=== PATIENT | male | born 1940 | race Caucasian/White ===

== ENCOUNTER 2017-04-14 08:34 | Day surgery (SDC) | payer MEDICARE, BC ==
[2017-04-13 13:33] VITALS: BMI 31.0
[~2017-04-14 08:34] MED LIST: ALPRAZolam 0.25 MG TAB PO PRN; ASPIRIN 325 MG TAB PO STA; SODIUM CHLORIDE 0.9% 1,000 ML in EMPTY BAG 1 BAG IV ONE
[2017-04-14] MEDS ORDERED: SODIUM CHLORIDE 0.9% 1,000 ML IV SCH ×2 (09:00→11:15)
[2017-04-14] MEDS ORDERED: SODIUM CHLORIDE 0.9% 1,000 ML IV ONE (09:12)
[2017-04-14 09:14] VITALS: RESP 18
[2017-04-14 09:15] LABS: Glucose,Whole Blood 222 mg/dL (75-99)
[2017-04-14 10:21] LABS: Calcium 9.7 mg/dL (8.4-10.2); Potassium 5.2 mmol/L (3.5-5.1)
[2017-04-14] MEDS ORDERED: LIDOCAINE 2% INJ 20 MG/ML SQ ONE ×2 (10:46→10:51)
[2017-04-14] MEDS ORDERED: MIDAZOLAM 2 MG/2 ML VIAL IVP ONE (10:46)
[2017-04-14] MEDS ORDERED: IODIXANOL 320 MG/ML 100 ML INTRAARTER ONE (11:03)
--- NOTE | 2017-04-14 11:50 | AN ---
ANGIOGRAPHY REPORT DATE OF PROCEDURE: 04/14/2017 PERFORMING PHYSICIAN: Ruddy Shultz MD, Finger Cobbler. PROCEDURE PERFORMED: 1. An abdominal aortogram. 2. Bilateral lower extremities runoff. INDICATION: This is a pleasant 76-year-old gentleman who is known to have peripheral arterial disease, who sees Dr. Shamir Barajas as an outpatient, who was experiencing bilateral lower extremities intermittent claudication, worse on the right side, underwent an anterior duplex study and that came in to be abnormal. In view of that, an abdominal aortogram and bilateral lower extremity runoff was advised. APPROACH: Right common femoral artery. COMPLICATION: None. LEVEL OF SEDATION: Moderate with sedation length of 20 minutes. PROCEDURE DESCRIPTION: After obtaining an informed consent, the patient was brought to Cardiac Chief Of Police. The right common femoral artery was cannulated using micropuncture technique and a micropuncture wire passed easily. Then I placed a 5-Russian sheath in the right common femoral artery. After that, I did an abdominal aortogram and bilateral lower extremities runoff using 5-Russian pigtail catheter which was initially placed at the level of the renal arteries, then it was pulled into above the bifurcation of the aorta to right and left common iliac arteries. The procedure was completed without any complication. SELECTIVE PERIPHERAL ANGIOGRAM: 1. The abdominal aorta is angiographically normal. 2. COMMON ILIAC ARTERIES: The right and left common iliac arteries are angiographically normal. 3. EXTERNAL ILIAC ARTERIES: Both external iliac arteries appear to have intermediate disease in the range of 60% to 70%. 4. COMMON FEMORAL ARTERIES: The right and left common femoral arteries are angiographically normal. 5. PROFUNDA: The right and left profunda are patent. 6. SFA: The right and left SFA are both severely diseased up to about 80% to 90% in the midportion with heavily calcified plaque. 7. POPLITEAL: The right and left popliteal appeared to have intermediate disease only. 8. BELOW THE KNEE: There is only one vessel runoff below the knee on the right side with anterior tibial. CONCLUSION: 1. 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 2. Severe bilateral SFA disease. POSTPROCEDURE MANAGEMENT: 1. Gradient measurement across bilateral external iliac arteries. 2. Atherectomy and FLEET TECHNICIAN of bilateral SFA. MMODL / IJN: [id number] /
[2017-04-14 12:08] VITALS: TEMP 97.6
[2017-04-14 12:09] LABS: Glucose,Whole Blood 179 mg/dL (75-99)
[2017-04-14] MEDS ORDERED: INSULIN ASPART 100 UNIT/ML 1 ML 10 ML VIAL SQ SCH (12:30)
[2017-04-14] MEDS ORDERED: hydrALAZINE HCL 20 MG/ML 1 ML VIAL IVP STA (17:08)
[2017-04-14 17:48] VITALS: BP 162/72; PULSE 66
--- NOTE | 2017-04-15 14:23 | IR ---
Fluoroscopy HISTORY: Pain 1.7 minutes fluoroscopy time supplied to the referring clinician. 99 intraoperative C-arm images doc ument the procedure. See dictated report from cardiology.
== END 2017-04-14 18:01 | disposition home or self-care (01) ==
LOC: CATHCVL 08:34
PROVIDERS: ATTEND Internal Medicine Interventional Cardiology
DX: I70.213 Atherosclerosis of native arteries of extremities with intermittent claudication, bilateral legs (principal); Z87.891 Personal history of nicotine dependence; I25.10 Atherosclerotic heart disease of native coronary artery without angina pectoris; I10 Essential (primary) hypertension; Z95.1 Presence of aortocoronary bypass graft; E11.9 Type 2 diabetes mellitus without complications; Z79.4 Long term (current) use of insulin; E78.5 Hyperlipidemia, unspecified; Z79.82 Long term (current) use of aspirin; Z79.899 Other long term (current) drug therapy
CPT/HCPCS: 36200; 75625; 75716; 80048; C1894; C1769 ×4; J2001; J2250; J0360; Q9967

== ENCOUNTER 2017-05-09 07:28 | Day surgery (SDC) | payer MEDICARE, BC ==
[~2017-05-09 07:28] MED LIST changes: +ALPRAZolam 0.5 MG TAB PO PRN
[2017-05-09 08:28] LABS: Glucose,Whole Blood 183 mg/dL (75-99)
[2017-05-09 08:42] LABS: Basophils # (A) 0.1 k/uL (0-0.2); Basophils % (A) 1 %; Eosinophils # (A) 0.5 k/uL (0-0.7); Eosinophils % (A) 6 %; HCT 43.4 % (39.0-53.0); HGB 15.1 gm/dL (13.0-17.5); Lymphocytes # (A) 1.2 k/uL (1.0-4.8); Lymphocytes % (A) 16 %; MCH 29.8 pg (25.0-35.0); MCHC 34.9 g/dL (31.0-37.0); MCV 85.4 fL (80.0-100.0); Mean Platelet Volume 7.1; Monocytes # (A) 0.3 k/uL (0-1.0); Monocytes % (A) 4 %; Neutrophils # (A) 5.4 k/uL (1.3-7.7); Neutrophils % (A) 71 %; Platelet Count 199 k/uL (150-450); RBC 5.08 m/uL (4.30-5.90); RDW 14.4 % (11.5-15.5); WBC 7.6 k/uL (3.8-10.6)
[2017-05-09] MEDS ORDERED: MIDAZOLAM 2 MG/2 ML VIAL IV ONE (08:43)
[2017-05-09 08:48] LABS: Calcium 9.6 mg/dL (8.4-10.2); Potassium 5.1 mmol/L (3.5-5.1)
[2017-05-09] MEDS ORDERED: LIDOCAINE 2% INJ 20 MG/ML SQ ONE (08:51)
[2017-05-09] MEDS ORDERED: HEPARIN SODIUM 1,000 UN/ML (10ML VL) IV ONE (09:05)
[2017-05-09] MEDS ORDERED: SODIUM CHLORIDE 0.9% (PF) 10 ML VIAL ONE (09:20)
[2017-05-09] MEDS ORDERED: niCARdipine 25 MG/10 ML VIAL ONE (09:20)
[2017-05-09] MEDS ORDERED: CLOPIDOGREL 75 MG TAB PO ONE (09:30)
[2017-05-09] MEDS ORDERED: INSULIN LISPRO 100 UNIT SQ PRN (10:18)
[2017-05-09] MEDS ORDERED: SODIUM CHLORIDE 0.9% 1,000 ML IV SCH (10:30)
--- NOTE | 2017-05-09 11:37 | LTR ---
May 09, 2017 Re: Praneeth Gandhidick Dear Dr. Domínguez: Mr. Praneeth Downing underwent successful balloon angioplasty of the left SFA and left iliac artery with good angiographic results and without any complication. I want to thank you for allowing me to participate in his care and please do not hesitate to call if you have any question or concern. Sincerely, MD LAVONNE Freedman / JENNIE: [id number] /
[2017-05-09 11:47] VITALS: BMI 31.0
--- NOTE | 2017-05-09 12:49 | AN ---
ANGIOGRAPHY REPORT DATE OF SERVICE: 05/09/2017 PERFORMING PHYSICIAN: Ruddy Suhltz MD, coordinator mining products. PROCEDURE PERFORMED: 1. Selective left [id number] angiogram. 2. Selective left popliteal angiogram. 3. Selective left SFA angiogram. 4. Gradient measurement across the left external iliac artery. 5. Successful atherectomy of the left popliteal and left SFA using the orbital atherectomy device from [employer]. 6. Successful balloon angioplasty of the left popliteal using 5 mm drug coated balloon with good angiographic results. 7. Successful balloon angioplasty of the left SFA using drug coated balloon with good angiographic results. 8. Successful stenting of the left external iliac artery using 7.0 x 37 mm balloon expandable stent with good angiographic results. 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 Because of that, the decision was made towards percutaneous peripheral intervention. APPROACH: Right common femoral artery. COMPLICATION: None. LEVEL OF SEDATION: Moderate with sedation length of 1 hour and 20 minutes. PROCEDURE DESCRIPTION: After obtaining an informed consent, the patient was brought to the cardiac open hearth laborer. The right common femoral artery was cannulated using micropuncture technique, the micropuncture wire passed easily, then I placed a 6-Colombian sheath 11 cm sheath in the right common femoral artery. At that point, anticoagulation was initiated using heparin and the patient received 10,000 units of heparin. We did an ACT by the end of the procedure. Subsequently I did select the left SFA using 0.035 advantage wire with a 5-Colombian rim catheter. After that, I did exchange my 11 cm 6-Colombian sheath into 55 cm 6-Colombian sheath using the Advantage wire. After that I did place the tip of the long sheath, which was 55 cm Raabe sheath at the left common femoral artery. Subsequently I did selective left [id number]-dbjj angiogram, selective left popliteal angiogram, and selective left external iliac artery angiogram. At that point, I did cross the left popliteal and left SFA lesions using 0.035 advantage wire. Then I did exchange my 0.035 advantage wire into a ViperWire preparing for orbital atherectomy. Subsequently I did multiple runs of rotational atherectomy using the orbital CSI atherectomy device and I did atherectomy of the left popliteal as well as left SFA in the midportion. After that, I did balloon angioplasty of the left popliteal and left SFA using an AngioSculpt balloon which was 4 mm balloon. After that for the left popliteal lesion, I did successful balloon angioplasty using 4 mm drug coated balloon. For the left SFA, I did drug coated balloon. It was 5 mm. The following angiogram showed good angiographic results. For the left external iliac artery lesion, I did a gradient measurement across the left external iliac artery using the an 0.035 CXI catheter. Then I did balloon angioplasty using initially 6 mm balloon and then I did place a 7 mm x 37 mm balloon expandable stent where the stent was positioned under fluoroscopy guidance and deployed under its nominal pressure. The following angiogram showed good angiographic results without perforation and without dissection with good flow in the left external iliac artery. Subsequently, I did exchange my 55 cm 6-Colombian sheath into 11 cm 6-Colombian sheath using an 0.035 advantage wire. I did finally selective right common femoral artery angiogram and the procedure was completed without any complication. POSTPROCEDURE MANAGEMENT: 1. Dual anti-platelet therapy. 2. Risk factor modifications. 3. Follow up with the patient. MMODL / IJN: [id number] /
[2017-05-09] MEDS ORDERED: ATROPINE SULFATE 0.1 MG/ML 10ML SYRINGE ONE (14:48)
[2017-05-09] MEDS ORDERED: GABAPENTIN 300 MG CAP PO SCH (20:00)
[2017-05-09] MEDS: METOPROLOL TARTRATE 50 MG TAB PO SCH (20:33)
[2017-05-09 20:48] LABS: Glucose,Whole Blood 220 mg/dL (75-99)
[2017-05-09] MEDS ORDERED: INSULIN DETEMIR 100 UNIT/ML 10 ML VIAL SQ SCH (21:00)
[2017-05-10 06:30] LABS: Glucose,Whole Blood 186 mg/dL (75-99)
[2017-05-10] MEDS ORDERED: INSULIN ASPART 100 UNIT/ML 1 ML 10 ML VIAL SQ SCH (07:30)
[2017-05-10 07:49] VITALS: BP 136/68; PULSE 69; RESP 16; TEMP 97.1
[2017-05-10] MEDS: METOPROLOL TARTRATE 50 MG TAB PO SCH (07:50)
[2017-05-10] MEDS ORDERED: GABAPENTIN 300 MG CAP PO SCH (09:00)
[2017-05-10] MEDS ORDERED: FUROSEMIDE 20 MG TAB PO SCH (09:00)
[2017-05-10] MEDS ORDERED: CLOPIDOGREL 75 MG TAB PO SCH (09:00)
[2017-05-10] MEDS ORDERED: LISINOPRIL 10 MG TAB PO SCH (09:00)
[2017-05-10] MEDS ORDERED: ATORVASTATIN 10 MG TAB PO SCH (09:00)
[2017-05-10] MEDS ORDERED: ASPIRIN 81 MG PO SCH (09:00)
--- NOTE | 2017-05-10 09:56 | IR ---
Fluoroscopy HISTORY: Peripheral vascular occlusive disease 18.9 minutes fluoroscopy time supplied to the referring clinician. 628 intraoperative C-arm images d ocument the procedure. See dictated report from cardiology.
--- NOTE | 2017-05-10 10:53 | DS ---
DISCHARGE SUMMARY ADMISSION DATE: 05/09/2017 DISCHARGE DATE: 05/10/2017 BRIEF HISTORY AND HOSPITAL COURSE: This is a pleasant 76-year-old gentleman who was experiencing bilateral lower extremities intermittent claudication and underwent a peripheral angiogram which revealed severe bilateral SFA disease with severe left external iliac artery disease. He was admitted to the hospital yesterday and underwent successful balloon angioplasty in study atherectomy and balloon angioplasty of the left SFA and successful stenting of the left external iliac artery with good angiographic results and without any complication. The procedure was performed from the right groin which is soft and nontender and without any bruises. The patient is going to be discharged home on dual anti-platelet therapy and I will follow up with the patient in the office as an outpatient. MMLEIDY / BREANNN: [id number] /
== END 2017-05-10 10:52 | disposition home or self-care (01) ==
LOC: CATHCVL 07:28 → 6SEL 10:26 → CATHCVL 05-10 10:52 → 6SEL 05-10 10:55
PROVIDERS: ATTEND Internal Medicine Interventional Cardiology
DX: I70.213 Atherosclerosis of native arteries of extremities with intermittent claudication, bilateral legs (principal); T82.856A Stenosis of peripheral vascular stent, initial encounter; E11.51 Type 2 diabetes mellitus with diabetic peripheral angiopathy without gangrene; Z95.820 Peripheral vascular angioplasty status with implants and grafts; I25.10 Atherosclerotic heart disease of native coronary artery without angina pectoris; Z95.1 Presence of aortocoronary bypass graft; I10 Essential (primary) hypertension; E78.5 Hyperlipidemia, unspecified; Z79.4 Long term (current) use of insulin; Z79.899 Other long term (current) drug therapy; Z87.891 Personal history of nicotine dependence
CPT/HCPCS: 37221; 37225; 80048; 82565; 85025; C1894 ×2; C1714; C1769 ×5; C1725 ×2; C2623 ×2; C1876; J2001; J2250; J1644

== ENCOUNTER → 2017-06-08 | Day surgery (SDC) | payer MEDICARE, BC ==
[2017-06-03 13:55] VITALS: BMI 30.4
[~2017-06-08] MED LIST changes: -ALPRAZolam 0.5 MG TAB PO PRN; +INSULIN ASPART 100 UNIT/ML 1 ML 10 ML VIAL SQ SCH
[2017-06-08 13:34] LABS: Glucose,Whole Blood 232 mg/dL (75-99)
[2017-06-08 13:36] VITALS: BP 125/54; PULSE 80; RESP 16; TEMP 97.7
== END ==
LOC: CATHCVL 12:50
PROVIDERS: ATTEND Internal Medicine Interventional Cardiology
DX: I73.9 Peripheral vascular disease, unspecified (principal); Z53.9 Procedure and treatment not carried out, unspecified reason

== ENCOUNTER 2017-06-15 06:57 | Day surgery (SDC) | payer MEDICARE, BC ==
[2017-06-13 10:14] VITALS: BMI 31.0
[2017-06-15] MEDS ORDERED: SODIUM CHLORIDE 0.9% 1,000 ML in EMPTY BAG 1 BAG IV ONE (06:58)
[2017-06-15] MEDS ORDERED: ALPRAZolam 0.25 MG TAB PO PRN (06:58)
[2017-06-15] MEDS ORDERED: ASPIRIN 325 MG TAB PO STA (06:58)
[2017-06-15 07:32] LABS: Glucose,Whole Blood 194 mg/dL (75-99)
[2017-06-15 07:53] LABS: Basophils % (A) 1 %; Eosinophils # (A) 0.4 k/uL (0-0.7); Eosinophils % (A) 6 %; HCT 40.1 % (39.0-53.0); HGB 14.1 gm/dL (13.0-17.5); Lymphocytes # (A) 1.1 k/uL (1.0-4.8); Lymphocytes % (A) 16 %; MCH 30.1 pg (25.0-35.0); Mean Platelet Volume 7.1; Monocytes # (A) 0.3 k/uL (0-1.0); Monocytes % (A) 5 %; Neutrophils # (A) 4.9 k/uL (1.3-7.7); Neutrophils % (A) 70 %; Platelet Count 178 k/uL (150-450); RBC 4.67 m/uL (4.30-5.90); RDW 14.2 % (11.5-15.5)
[2017-06-15 07:59] LABS: Albumin 3.9 g/dL (3.5-5.0); Calcium 9.7 mg/dL (8.4-10.2); Potassium 5.1 mmol/L (3.5-5.1); Total Bilirubin 0.5 mg/dL (0.2-1.3); Total Protein 6.7 g/dL (6.3-8.2)
[2017-06-15] MEDS ORDERED: MIDAZOLAM 2 MG/2 ML VIAL IVP ONE ×2 (08:44→09:58)
[2017-06-15] MEDS ORDERED: LIDOCAINE 2% INJ 20 MG/ML SQ ONE (08:47)
[2017-06-15] MEDS ORDERED: HEPARIN SODIUM 1,000 UN/ML (10ML VL) IV ONE (08:53)
[2017-06-15] MEDS: NITROGLYCERIN 1000MCG/10ML SYRINGE INTRAARTER ONE ×2 (09:49→10:19)
[2017-06-15] MEDS: niCARdipine Syringe (1,000 mcg/10 mL) INTRAARTER ONE ×2 (09:49→10:19)
[2017-06-15] MEDS ORDERED: CLOPIDOGREL 75 MG TAB PO ONE (10:30)
[2017-06-15] MEDS ORDERED: IODIXANOL 320 MG/ML 100 ML INTRAARTER ONE (10:31)
[2017-06-15] MEDS ORDERED: INSULIN LISPRO 100 UNIT SQ PRN (10:32)
[2017-06-15] MEDS ORDERED: SODIUM CHLORIDE 0.9% 1,000 ML IV SCH (10:45)
[2017-06-15 10:55] LABS: Glucose,Whole Blood 176 mg/dL (75-99)
--- NOTE | 2017-06-15 12:11 | AN ---
ANGIOGRAPHY REPORT DATE OF SERVICE: 06/15/2017 PERFORMING PHYSICIAN: Ruddy Shultz MD. PROCEDURE PERFORMED: 1. Selective left boeec-jop-nypu angiogram. 2. Selective left popliteal and left SFA angiogram. 3. An atherectomy of the left popliteal and left SFA using the orbital atherectomy device from [employer]. 4. Successful balloon angioplasty of the left popliteal using 3.5 mm x 40 mm balloon with good angiographic results. 5. Stenting of the left SFA using 6.0 x 140 mm Zilver PTX drug coated stent with good angiographic results. INDICATION: This is a pleasant 77-year-old gentleman who sees Dr. Arjun Barajas as an outpatient who has known peripheral arterial disease who was experiencing bilateral lower extremities intermittent claudication. He underwent a peripheral angiogram a few weeks ago and that revealed severe bilateral SFA disease. He underwent balloon angioplasty of the left SFA and was brought today to undergo balloon angioplasty of the right SFA. APPROACH: Left common femoral artery. COMPLICATION: None. LEVEL OF SEDATION: Moderate with a sedation length of 100 minutes. PROCEDURE DESCRIPTION: After obtaining an informed consent, the patient was brought to the cardiac lab clerk. The left common femoral artery was cannulated using micropuncture technique, the micropuncture wire passed easily. Then I placed an 11 cm 6-Omani sheath in the left common femoral artery. After that, I did start anticoagulation using heparin and the patient was given a weight-based heparin with continuous ACT monitoring throughout the procedure. Subsequently I did select right SFA using a 0.035 advantage wire with the backup support of 5-Omani rim catheter. After that, I did exchange my 11 cm 6-Omani sheath into 70 cm 6-Omani sheath using 0.035 advantage wire. The tip of the long sheath was positioned in the right common femoral artery. Subsequently, I did wire the left SFA and left popliteal and I did advance the wire to the left anterior tibial artery using an 0.014 hydro XT wire. Before I did wire the left SFA and left popliteal and left anterior tibial artery, I did selective left below- the-knee angiogram, selective left popliteal and selective left SFA angiogram. The angiogram did reveal severe disease involving the left SFA and left popliteal with one vessel runoff below the knee with the AT only which was wired. I did exchanged after that my 0.014 [place] XT wire into 0.014 ViperWire using an 0.014 CXI catheter. Subsequently I did do multiple runs of rotational atherectomy using the orbital atherectomy device from [facility]. After that I did balloon angioplasty of the left popliteal initially using 3.5 mm balloon and after that I did angiogram which revealed good angiographic results. For the left SFA, I did balloon angioplasty using 5 mm balloon but the following angiogram showed severe residual stenosis with dissection as well. I decided to cover this area with a stent so I did stent that segment using the 6 x 140 mm Zilver PTX where the stent was positioned under fluoroscopy guidance and deployed as well. I did after that balloon the stent using 5 mm balloon. The following angiogram showed good angiographic results without perforation and without dissection with a good flow in the right SFA and right below the knee. The procedure was completed without any complication. After that I did exchange my 70 cm 6-Omani sheath into 11 cm 6-Omani sheath using the advantage wire. After that, the procedure was completed without any complication. POSTPROCEDURE MANAGEMENT: 1. Dual anti-platelet therapy. 2. Risk factor modifications. 3. Follow up with the patient. MMODL / IJN: [id number] /
[2017-06-15] MEDS ORDERED: ATROPINE SULFATE 0.1 MG/ML 10ML SYRINGE ONE (14:01)
[2017-06-15 16:41] LABS: Glucose,Whole Blood 185 mg/dL (75-99)
[2017-06-15] MEDS: INSULIN ASPART 100 UNIT/ML 1 ML 10 ML VIAL SQ SCH (17:22)
[2017-06-15] MEDS: METOPROLOL TARTRATE 50 MG TAB PO SCH (19:55)
[2017-06-15] MEDS: GABAPENTIN 300 MG CAP PO SCH (19:56)
[2017-06-15] MEDS ORDERED: INSULIN DETEMIR 100 UNIT/ML 10 ML VIAL SQ SCH (21:00)
[2017-06-15 21:11] LABS: Glucose,Whole Blood 159 mg/dL (75-99)
[2017-06-15 22:46] LABS: Hemoglobin A1C 8.6 % (4.0-6.0)
[2017-06-16 05:48] LABS: Glucose,Whole Blood 176 mg/dL (75-99)
[2017-06-16] MEDS: INSULIN ASPART 100 UNIT/ML 1 ML 10 ML VIAL SQ SCH (06:38)
[2017-06-16 06:44] LABS: Basophils % (A) 0 %; Eosinophils # (A) 0.4 k/uL (0-0.7); Eosinophils % (A) 5 %; HCT 41.9 % (39.0-53.0); HGB 13.4 gm/dL (13.0-17.5); Lymphocytes # (A) 1.2 k/uL (1.0-4.8); Lymphocytes % (A) 14 %; MCH 27.9 pg (25.0-35.0); MCHC 32.1 g/dL (31.0-37.0); MCV 87.1 fL (80.0-100.0); Mean Platelet Volume 7.5; Monocytes # (A) 0.5 k/uL (0-1.0); Monocytes % (A) 6 %; Neutrophils % (A) 73 %; Platelet Count 167 k/uL (150-450); RBC 4.82 m/uL (4.30-5.90); RDW 14.4 % (11.5-15.5); WBC 8.2 k/uL (3.8-10.6)
[2017-06-16 06:51] LABS: Calcium 9.5 mg/dL (8.4-10.2); Potassium 4.9 mmol/L (3.5-5.1)
[2017-06-16] MEDS ORDERED: LISINOPRIL 10 MG TAB PO SCH (09:00)
[2017-06-16] MEDS ORDERED: ATORVASTATIN 10 MG TAB PO SCH (09:00)
[2017-06-16] MEDS ORDERED: ASPIRIN 81 MG PO SCH (09:00)
[2017-06-16] MEDS ORDERED: FUROSEMIDE 20 MG TAB PO SCH (09:00)
[2017-06-16] MEDS ORDERED: CLOPIDOGREL 75 MG TAB PO SCH (09:00)
[2017-06-16 09:19] VITALS: BP 134/74; PULSE 74; RESP 16; TEMP 97.9
[2017-06-16] MEDS: GABAPENTIN 300 MG CAP PO SCH (09:39)
[2017-06-16] MEDS: METOPROLOL TARTRATE 50 MG TAB PO SCH (09:39)
--- NOTE | 2017-06-16 10:10 | US ---
EXAMINATION TYPE: US venous doppler duplex LE RT DATE OF EXAM: 06/16/2017 8:45 AM COMPARISON: NONE CLINICAL HISTORY: leg pain. Pain. Had arterial stent placed yesterday. Hx of left leg DVT. Patient states being on blood thinners. SIDE PERFORMED: Right TECHNIQUE: The lower extremity deep venous system is examined utilizing real time linear array sonog heath with graded compression, doppler sonography and color-flow sonography. VESSELS IMAGED: External Iliac Vein (EIV) Common Femoral Vein Deep Femoral Vein Greater Saphenous Vein * Femoral Vein Popliteal Vein Small Saphenous Vein * Proximal Calf Veins (* superficial vessels) Right Leg: Negative for DVT. Thickened munoz are seen in popliteal vein. Grayscale, color doppler, spectral doppler imaging performed of the deep veins of the lower extremiti es. There is normal flow, compressibility, vascular waveforms. IMPRESSION: No evident venous thrombosis at or above the right knee
--- NOTE | 2017-06-16 17:12 | DS ---
DISCHARGE SUMMARY ADMISSION DATE: June 15, 2017. DISCHARGE DATE: June 16, 2017. BRIEF HISTORY: This is a pleasant 77-year-old gentleman who sees Dr. Arjun Barajas in the office as an outpatient with a known history of peripheral arterial disease, was admitted to the hospital yesterday and underwent successful balloon angioplasty and stenting of the right superficial femoral artery with good angiographic results and without any complication where the procedure was performed from the left groin. On follow up with him today, the left groin is soft and nontender. He does have tenderness in the right calf area. I am going to perform a venous duplex study and if that came into be negative for DVT. The patient is going to be discharged home on dual anti-platelet therapy and he will be followed in the office as an outpatient. LAVONNE / JENNIE: [id number] /
--- NOTE | 2017-06-20 10:08 | IR ---
EXAMINATION TYPE: IR stent intravas non coronary DATE OF EXAM: 06/15/2017 COMPARISON: NONE HISTORY: Peripheral vascular occlusive disease. Fluoroscopy was provided to the referring clinician. See dictated report from cardiology. 28.4 minut es of fluoroscopy utilized.
== END 2017-06-16 10:42 | disposition home or self-care (01) ==
LOC: CATHCVL 06:57 → 6SEL 10:22 → CATHCVL 06-16 10:42
PROVIDERS: ATTEND Internal Medicine Interventional Cardiology
DX: I70.213 Atherosclerosis of native arteries of extremities with intermittent claudication, bilateral legs (principal); Z95.820 Peripheral vascular angioplasty status with implants and grafts; I25.10 Atherosclerotic heart disease of native coronary artery without angina pectoris; I10 Essential (primary) hypertension; E78.5 Hyperlipidemia, unspecified; E11.9 Type 2 diabetes mellitus without complications; I25.2 Old myocardial infarction; Z86.718 Personal history of other venous thrombosis and embolism; Z95.1 Presence of aortocoronary bypass graft; Z82.49 Family history of ischemic heart disease and other diseases of the circulatory system; Z79.02 Long term (current) use of antithrombotics/antiplatelets; Z79.4 Long term (current) use of insulin; Z79.899 Other long term (current) drug therapy; Z87.891 Personal history of nicotine dependence
CPT/HCPCS: 37227; 85347; 80053; 80048; 85025 ×2; 83036; 93971; C1894 ×2; C1769 ×6; C1714; C1874; C1725 ×2; J2001; J2250; Q9967; J1644

== ENCOUNTER → 2017-10-05 | Outpatient (CLI) | payer MEDICARE, BC ==
[2017-10-05 08:44] LABS: HCT 44.5 % (39.0-53.0); HGB 14.5 gm/dL (13.0-17.5); MCHC 32.5 g/dL (31.0-37.0); MCV 86.1 fL (80.0-100.0); Mean Platelet Volume 6.9; Platelet Count 224 k/uL (150-450); RBC 5.17 m/uL (4.30-5.90); RDW 14.5 % (11.5-15.5)
[2017-10-05 08:54] LABS: Potassium 4.9 mmol/L (3.5-5.1)
== END | disposition home or self-care (01) ==
LOC: LABPAT 08:05
PROVIDERS: ATTEND Internal Medicine Interventional Cardiology
DX: Z01.812 Encounter for preprocedural laboratory examination (principal)
CPT/HCPCS: 36415; 80051; 82565; 84520; 85027

== ENCOUNTER → 2017-10-19 | Day surgery (SDC) | payer MEDICARE, BC ==
[2017-10-18 08:41] VITALS: BMI 31.0
[~2017-10-19] MED LIST changes: -ALPRAZolam 0.25 MG TAB PO PRN; -ASPIRIN 325 MG TAB PO STA; +ATROPINE SULFATE 0.1 MG/ML 10ML SYRINGE IV PRN; +CLOPIDOGREL 75 MG TAB PO SCH; +ENALAPRIL MALEATE 5 MG PO SCH; +FUROSEMIDE 20 MG TAB PO SCH; +GABAPENTIN 300 MG CAP PO SCH; -INSULIN ASPART 100 UNIT/ML 1 ML 10 ML VIAL SQ SCH; +INSULIN GLARGINE 44 UNIT SQ SCH; +INSULIN LISPRO 100 UNIT SQ PRN; +IOPAMIDOL-370 100ML BTL INJ ONE; +LIDOCAINE 1% INJ 10MG/ML (20 ML MDV) SQ ONE; +LISINOPRIL 5 MG TAB PO STA; +MAG HYDROX/AL HYDROX/SIMETH 30 ML CUP PO PRN; +METOPROLOL TARTRATE 50 MG TAB PO SCH; +METOPROLOL TARTRATE 50 MG TAB PO STA; +MIDAZOLAM 2 MG/2 ML VIAL IV ONE; +NITROGLYCERIN SL TABS 0.4 MG TAB SUBLINGUAL PRN; +NON-FORMULARY DRUG (Aspirin [Adult Low Dose Aspirin Ec] 162 MG) PO SCH; +RX INFO: IV CONTRAST WAS GIVEN 1 EACH MISC MISCELLANE PRN; +SODIUM CHLORIDE 0.9% 1,000 ML IV ONE; +SODIUM CHLORIDE 0.9% 1,000 ML IV SCH; +ZOLPIDEM 5 MG TAB PO PRN
[2017-10-19 08:05] VITALS: RESP 16; TEMP 98.6
[2017-10-19 08:49] LABS: Glucose,Whole Blood 171 mg/dL (75-99)
--- NOTE | 2017-10-19 12:48 | LTR ---
October 19, 2017 Re: Praneeth Downing Dear Dr. Domínguez: Mr. Praneeth Downing was seen recently by Dr. Arjun Barajas and he was experiencing right leg intermittent claudication. He underwent today an abdominal aortogram and bilateral lower extremities runoff and that revealed critical disease involving the right popliteal. I am going to schedule the patient to undergo a balloon angioplasty of the right popliteal to be done in the next few weeks. I want to thank you for allowing me to participate in his care and please do not hesitate to call if you have any question or concern. Sincerely, MD LAVONNE Freedman / JENNIE: [id number] /
--- NOTE | 2017-10-19 13:15 | AN ---
ANGIOGRAPHY REPORT DATE OF SERVICE: October 19, 2017. PERFORMING PHYSICIAN: Ruddy Shultz MD. PROCEDURE PERFORMED: 1. An abdominal aortogram. 2. Bilateral lower extremities runoff. INDICATION: This is a pleasant 77-year-old gentleman who sees Dr. Arjun Barajas in the office as an outpatient with a known history of coronary artery disease as well as peripheral arterial disease where in April and May of 2017, the patient underwent successful balloon angioplasty of both superficial femoral arteries as well as balloon angioplasty and stenting of the left external iliac artery, recently was experiencing right leg intermittent claudication again. He was brought today to undergo an abdominal aortogram and bilateral lower extremities runoff for better clarification. APPROACH: Left common femoral artery. COMPLICATION: None. LEVEL OF SEDATION: Moderate with sedation length of 13 minutes. PROCEDURE DESCRIPTION: After obtaining informed consent, the patient was brought to cardiac greenskeeper laborer. The left common femoral artery was cannulated using micropuncture technique and a micropuncture wire passed easily then I placed a 5-Colombian sheath in the left common femoral artery. After that, I did an abdominal aortogram and bilateral lower extremities runoff using 5-Colombian pigtail catheter. The procedure was completed without any complication. The catheter was initially placed at the level of the renal arteries and it was pulled into above the bifurcation of the aorta to right and left common iliac arteries. The procedure was completed without any complication. SELECTIVE PERIPHERAL ANGIOGRAM: 1. The abdominal aorta appeared to have mild disease only. 2. Common iliac arteries: The right and left common iliac arteries are patent. 3. External iliac arteries: The right external iliac artery appeared to have mild disease only and the left external iliac artery is stented and the stent is patent. 4. The common femoral artery: The right and left common femoral arteries appear to have mild disease only. 5. Profunda: The right and left profunda are patent. 6. The SFA: The right SFA is stented in the midportion and the stent is patent. The left SFA appeared to be calcified with mild disease only. 7. Popliteal: The right popliteal appeared to have a critical lesion just above the takeoff of the anterior tibial artery and this lesion appeared to be in the range of 80% to 90%. The left popliteal appeared to have mild to moderate diffuse disease only. 8. Below the knee: There are 1 vessel runoff below the knee on the right side with anterior tibial and 2 vessel runoff below the knee on the left side with anterior tibial and posterior tibial and occluded popliteal. CONCLUSION: 1. Patent stent in the left external iliac artery. 2. Critical disease involving the right popliteal. 3. Severe ygzoz-fzl-dqke disease bilaterally. POSTPROCEDURE MANAGEMENT: BOX ANNEALER of the left popliteal to be performed from a left groin approach as an outpatient. LAVONNE / IJN: [id number] /
--- NOTE | 2017-10-19 15:04 | IR ---
Fluoroscopy HISTORY: Pain in left foot 1.6 minutes fluoroscopy time supplied to the referring clinician. 99 intraoperative C-arm images doc ument the procedure. See dictated report from cardiology.
[2017-10-19 17:12] VITALS: BP 157/76; PULSE 66
== END ==
LOC: CATHCVL 07:04
PROVIDERS: ATTEND Internal Medicine Interventional Cardiology
DX: Z95.1 Presence of aortocoronary bypass graft (principal); Z95.820 Peripheral vascular angioplasty status with implants and grafts; E11.9 Type 2 diabetes mellitus without complications; I10 Essential (primary) hypertension; E78.5 Hyperlipidemia, unspecified; Z87.891 Personal history of nicotine dependence; Z79.811 Long term (current) use of aromatase inhibitors; Z79.82 Long term (current) use of aspirin; Z79.4 Long term (current) use of insulin; Z79.899 Other long term (current) drug therapy
CPT/HCPCS: 36200; 75625; 75716; C1894; C1769 ×3; J2250; J2001; Q9967

== ENCOUNTER 2018-05-31 06:08 | Day surgery (SDC) | payer MEDICARE, BC ==
[2018-05-26 11:25] VITALS: BMI 30.2
[~2018-05-31 06:08] MED LIST changes: +ALPRAZolam 0.25 MG TAB PO PRN; +ASPIRIN 325 MG TAB PO STA; -ATROPINE SULFATE 0.1 MG/ML 10ML SYRINGE IV PRN; -CLOPIDOGREL 75 MG TAB PO SCH; -ENALAPRIL MALEATE 5 MG PO SCH; -FUROSEMIDE 20 MG TAB PO SCH; -GABAPENTIN 300 MG CAP PO SCH; -INSULIN GLARGINE 44 UNIT SQ SCH; -INSULIN LISPRO 100 UNIT SQ PRN; -IOPAMIDOL-370 100ML BTL INJ ONE; -LIDOCAINE 1% INJ 10MG/ML (20 ML MDV) SQ ONE; -LISINOPRIL 5 MG TAB PO STA; -MAG HYDROX/AL HYDROX/SIMETH 30 ML CUP PO PRN; -METOPROLOL TARTRATE 50 MG TAB PO SCH; -METOPROLOL TARTRATE 50 MG TAB PO STA; -MIDAZOLAM 2 MG/2 ML VIAL IV ONE; -NITROGLYCERIN SL TABS 0.4 MG TAB SUBLINGUAL PRN; -NON-FORMULARY DRUG (Aspirin [Adult Low Dose Aspirin Ec] 162 MG) PO SCH; -RX INFO: IV CONTRAST WAS GIVEN 1 EACH MISC MISCELLANE PRN; -SODIUM CHLORIDE 0.9% 1,000 ML IV ONE; -SODIUM CHLORIDE 0.9% 1,000 ML IV SCH; -ZOLPIDEM 5 MG TAB PO PRN
[2018-05-31 07:03] LABS: Glucose,Whole Blood 124 mg/dL (75-99)
[2018-05-31 07:35] LABS: Basophils # (A) 0.1 k/uL (0-0.2); Basophils % (A) 1 %; Eosinophils # (A) 0.3 k/uL (0-0.7); Eosinophils % (A) 4 %; HCT 42.3 % (39.0-53.0); HGB 13.6 gm/dL (13.0-17.5); Hypochromasia Slight; Lymphocytes # (A) 1.3 k/uL (1.0-4.8); Lymphocytes % (A) 17 %; MCH 28.5 pg (25.0-35.0); MCHC 32.1 g/dL (31.0-37.0); MCV 88.8 fL (80.0-100.0); Monocytes # (A) 0.4 k/uL (0-1.0); Monocytes % (A) 5 %; Neutrophils # (A) 5.6 k/uL (1.3-7.7); Neutrophils % (A) 72 %; Platelet Count 233 k/uL (150-450); RBC 4.76 m/uL (4.30-5.90); RDW 15.3 % (11.5-15.5); WBC 7.7 k/uL (3.8-10.6)
[2018-05-31 07:40] LABS: Calcium 9.8 mg/dL (8.4-10.2); Potassium 5.1 mmol/L (3.5-5.1)
[2018-05-31] MEDS ORDERED: SODIUM CHLORIDE 0.9% 1,000 ML IV ONE (07:45)
[2018-05-31] MEDS: MIDAZOLAM 2 MG/2 ML VIAL IV ONE ×2 (07:45→08:39)
[2018-05-31] MEDS ORDERED: LIDOCAINE 1% INJ 10MG/ML (20 ML MDV) SQ ONE (07:54)
[2018-05-31] MEDS: MORPHINE SULFATE 4 MG/ML SYRINGE IV ONE ×2 (07:54→09:24)
[2018-05-31] MEDS ORDERED: HEPARIN SODIUM 1,000 UN/ML (10ML VL) IV ONE (08:16)
[2018-05-31] MEDS ORDERED: niCARdipine Syringe (1,000 mcg/10 mL) INTRAARTER ONE (09:15)
[2018-05-31] MEDS ORDERED: NITROGLYCERIN 1000MCG/10ML SYRINGE INTRAARTER ONE (09:15)
[2018-05-31] MEDS ORDERED: IOPAMIDOL-370 100ML BTL INJ ONE (09:32)
[2018-05-31] MEDS ORDERED: IOPAMIDOL-250 50ML BTL INTRAARTER ONE (09:33)
[2018-05-31] MEDS ORDERED: INSULIN LISPRO 100 UNIT SQ PRN (09:55)
[2018-05-31] MEDS ORDERED: SODIUM CHLORIDE 0.9% 1,000 ML IV SCH (10:00)
[2018-05-31] MEDS ORDERED: CLOPIDOGREL 75 MG TAB PO ONE (10:01)
--- NOTE | 2018-05-31 10:49 | IR ---
Fluoroscopy HISTORY: Peripheral vascular occlusive disease 26.1 minutes fluoroscopy time supplied to the referring clinician. 190 intraoperative C-arm images document the p rocedure. See dictated report from cardiology.
[2018-05-31 10:52] LABS: Glucose,Whole Blood 126 mg/dL (75-99)
--- NOTE | 2018-05-31 11:35 | AN ---
ANGIOGRAPHY REPORT DATE OF SERVICE: May 31, 2018 PERFORMING PHYSICIAN: Ruddy Shultz MD, line maintainer. PROCEDURE PERFORMED: 1. An abdominal aortogram. 2. Bilateral lower extremities runoff. 3. Selective left xnygf-pxu-vagk angiogram. 4. Selective left popliteal angiogram. 5. Gradient measurement across the left external iliac artery. 6. Intravascular ultrasound, IVUS, of the left popliteal. 7. An atherectomy of the left popliteal using the TurboHawk device with extraction of plaque. 8. Balloon angioplasty of the left popliteal using 4 mm x 80 mm drug-coated balloon with inadequate angiographic results. 9. Successful stenting of the left popliteal using 6 x 60 mm Zilver PTX drug-coated stent with an excellent angiographic result. INDICATION: This is a pleasant 77-year-old gentleman who sees Dr. Arjun Barajas in the office as an outpatient with known history of peripheral arterial disease and prior balloon angioplasty of the right SFA and left external iliac artery who was experiencing bilateral lower extremity intermittent claudication and he underwent recently in the office an arterial duplex study which indicated possible severe disease involving the left external iliac artery and left SFA. Because of that, he was brought today to undergo an abdominal aortogram and bilateral lower extremities runoff with possible JAVA WEBSPHERE DEVELOPER. APPROACH: Right common femoral artery. COMPLICATION: None. LEVEL OF SEDATION: Moderate with sedation length of 105 minutes. PROCEDURE DESCRIPTION: After obtaining an informed consent, the patient was brought to the cardiac chemistry laboratory technician. The right common femoral artery was cannulated using micropuncture technique, the micropuncture wire passed easily then I placed a 6-Omani sheath in the right common femoral artery. I did after that an abdominal aortogram and bilateral lower extremities runoff using 5- Omani pigtail catheter which was initially placed at the level of the renal arteries then it was pulled into above the bifurcation of the aorta to right and left common iliac arteries. After that I did a gradient measurement across the right external iliac artery. Please see a separate paragraph for that. Subsequently I did intervene on the left popliteal. Please see a separate paragraph for that. SELECTIVE PERIPHERAL ANGIOGRAM: 1. The aorta appeared to be angiographically normal. 2. Common iliac arteries: The right and left common iliac arteries appear to have mild disease only. 3. External iliac arteries: The right external iliac artery appeared to have mild disease only and the left external iliac artery appeared to be stented with intermediate in-stent restenosis. We did a gradient across that area that came into be 10 mmHg. 4. Common femoral arteries: The right and left common femoral arteries appear to have mild disease only. 5. Profunda: The right and left profunda are patent. 6. SFA: The right SFA is stented in the mid portion and the stent seems to have mild in-stent restenosis. The left SFA appeared to have mild to moderate diffuse disease only. 7. Popliteal: The right popliteal has 95% lesion in the midportion and the left popliteal has a lesion appeared to be in the range of 80%. 8. Below the knee: There is only 1 vessel below the knee with anterior tibial bilaterally. Gradient measurement: Gradient of the left external iliac artery, I did a gradient measurement across the left external iliac artery using a 4-Omani straight catheter. I did select the left external iliac artery using 5-Omani Rim catheter with 0.035 [place] Advantage wire then I did exchange my 5-Omani Rim into a straight multi-hole catheter using the 0.035 [place] Advantage wire. The gradient came into be a 10 mmHg, which is below the significant threshold. JAVA WEBSPHERE DEVELOPER OF THE LEFT SFA: Anticoagulation was achieved with heparin with continuous ACT monitoring throughout the procedure. Subsequently I did select the left SFA using a 0.035 Glidewire Advantage wire with 5-Omani Rim catheter. After that, I did exchange my 11 cm 6-Omani sheath into 55 cm 6-Omani Raabe the sheath using a 0.035 [place] Advantage wire. The tip of the sheath was positioned in the left SFA. After that, I did selective left below-the- knee angiogram and selective left popliteal angiogram. I did after that intravascular ultrasound, IVUS, of the left popliteal, which showed a diameter of 4 mm of that vessel. At that point I did atherectomy using the TurboHawk device with extraction of significant amount of plaque. I did balloon angioplasty initially using 4.0 x 80 mm regular balloon and then 4.0 x 80 drug coated balloon. The following angiogram showed an area of haziness involving the mid left popliteal where was the plaque before. I did IVUS again and that showed a stenosis of 95%. At that point, I decided to stent that area so I deployed a 6 x 60 mm Zilver PTX drug-coated stent where the stent was positioned under fluoroscopy guidance and deployed under fluoroscopy guidance as well. I did post dilate the stent using 5 mm balloon. The following angiogram showed good angiographic results without any dissection. At that point, the procedure was completed without any complication. CONCLUSION: 1. Intermediate disease involving the left external iliac artery. Gradient was applied and came in to be at 10 mmHg only. 2. Severe bilateral popliteal disease. 3. Successful atherectomy, balloon angioplasty and stenting of the left popliteal with an excellent angiographic results and reduction of stenosis from 99% to 0%. POSTPROCEDURE MANAGEMENT: 1. Dual antiplatelet therapy. 2. Risk factors modifications. 3. Atherectomy and balloon angioplasty of the right popliteal. MMODL / IJN: [id number] /
--- NOTE | 2018-05-31 12:11 | LTR ---
DATE OF SERVICE: 05/31/2018 RE: Praneeth Downing Dr. Dr. Domínguez; Mr. Praneeth Downing underwent successful balloon angioplasty of the left femoral artery with a good angiographic results and without any complication. I want to thank you for allowing us to participate in his care and please do not hesitate to call if you have any question or concerns. Sincerely, MD LAVONNE Freedman / BREANNN: [id number] /
[2018-05-31] MEDS: INSULIN ASPART (NovoLOG) 100 UNIT/ML VIAL SQ SCH (20:02)
[2018-05-31 21:00] LABS: Glucose,Whole Blood 119 mg/dL (75-99)
[2018-05-31] MEDS ORDERED: ATORVASTATIN 10 MG TAB PO SCH (21:00)
[2018-05-31] MEDS ORDERED: INSULIN DETEMIR (LEVEMIR) 100 UNIT/ML SYR SQ SCH (21:00)
[2018-06-01 03:21] VITALS: BP 137/71; PULSE 86; RESP 15; TEMP 97.1
[2018-06-01 06:01] LABS: Glucose,Whole Blood 121 mg/dL (75-99)
[2018-06-01] MEDS: INSULIN ASPART (NovoLOG) 100 UNIT/ML VIAL SQ SCH (06:33)
[2018-06-01 08:13] LABS: Basophils % (A) 0 %; Eosinophils # (A) 0.2 k/uL (0-0.7); Eosinophils % (A) 3 %; HCT 45.1 % (39.0-53.0); HGB 13.4 gm/dL (13.0-17.5); Hypochromasia Marked; Lymphocytes % (A) 13 %; MCH 27.8 pg (25.0-35.0); MCHC 29.8 g/dL (31.0-37.0); MCV 93.3 fL (80.0-100.0); Mean Platelet Volume 7.5; Monocytes # (A) 0.3 k/uL (0-1.0); Monocytes % (A) 4 %; Neutrophils # (A) 5.6 k/uL (1.3-7.7); Neutrophils % (A) 77 %; Platelet Count 190 k/uL (150-450); RBC 4.83 m/uL (4.30-5.90); WBC 7.2 k/uL (3.8-10.6)
[2018-06-01 08:26] LABS: Calcium 9.6 mg/dL (8.4-10.2); Potassium 5.1 mmol/L (3.5-5.1)
[2018-06-01] MEDS ORDERED: METOPROLOL TARTRATE 50 MG TAB PO SCH (09:00)
[2018-06-01] MEDS ORDERED: LISINOPRIL 10 MG TAB PO SCH (09:00)
[2018-06-01] MEDS ORDERED: FUROSEMIDE 40 MG TAB PO SCH (09:00)
[2018-06-01] MEDS ORDERED: CLOPIDOGREL 75 MG TAB PO SCH (09:00)
[2018-06-01] MEDS ORDERED: ASPIRIN 81 MG PO SCH (09:00)
--- NOTE | 2018-06-01 09:48 | DS ---
DISCHARGE SUMMARY ADMISSION DATE: May 31, 2018 DISCHARGE DATE: June 01, 2018 BRIEF HISTORY: This is a 77-year-old gentleman who sees Dr. Arjun Barajas in the office as an outpatient who was admitted to the hospital yesterday and underwent an abdominal aortogram and bilateral lower extremities runoff where he was found to have critical disease involving the left popliteal. He underwent successful atherectomy and balloon angioplasty of the left popliteal with good angiographic results and without any complication. He is going to be discharged home today on dual antiplatelet therapy and I will follow up with the patient in the office in a week. MMODL / IJN: [id number] /
== END 2018-06-01 09:38 | disposition home or self-care (01) ==
LOC: CATHCVL 06:08 → 3SCARD 17:05 → CATHCVL 06-01 09:38
PROVIDERS: ATTEND Internal Medicine Interventional Cardiology
DX: I70.213 Atherosclerosis of native arteries of extremities with intermittent claudication, bilateral legs (principal); I25.10 Atherosclerotic heart disease of native coronary artery without angina pectoris; I10 Essential (primary) hypertension; E11.51 Type 2 diabetes mellitus with diabetic peripheral angiopathy without gangrene; I08.1 Rheumatic disorders of both mitral and tricuspid valves; I27.20 Pulmonary hypertension, unspecified; E78.5 Hyperlipidemia, unspecified; J44.9 Chronic obstructive pulmonary disease, unspecified; Z95.1 Presence of aortocoronary bypass graft; Z79.02 Long term (current) use of antithrombotics/antiplatelets; Z79.899 Other long term (current) drug therapy; Z79.4 Long term (current) use of insulin; Z87.891 Personal history of nicotine dependence
CPT/HCPCS: 37227; 75716; 85347; 37252; 80048 ×2; 85025 ×2; C1769 ×6; C1894 ×3; C1714; C1753; C2623; C1874; C1725 ×2; J2250; J2270; J2001; J1644; Q9966; Q9967; 75625

== ENCOUNTER 2018-07-19 06:34 | Day surgery (SDC) | payer MEDICARE, BC ==
[~2018-07-19 06:34] MED LIST changes: -ASPIRIN 325 MG TAB PO STA; +SODIUM CHLORIDE 0.9% 1,000 ML IV SCH
[2018-07-19] MEDS ORDERED: ASPIRIN 325 MG TAB PO ONE (07:00)
[2018-07-19] MEDS ORDERED: SODIUM CHLORIDE 0.9% 1,000 ML IV ONE (07:20)
[2018-07-19 07:30] LABS: Glucose,Whole Blood 112 mg/dL (75-99)
[2018-07-19] MEDS ORDERED: METOPROLOL TARTRATE 50 MG TAB PO STA (07:42)
[2018-07-19] MEDS ORDERED: LISINOPRIL 10 MG TAB PO STA (07:42)
[2018-07-19] MEDS ORDERED: CLOPIDOGREL 75 MG TAB PO STA (07:42)
[2018-07-19 07:47] LABS: Basophils # (A) 0.1 k/uL (0-0.2); Basophils % (A) 1 %; Eosinophils # (A) 0.3 k/uL (0-0.7); Eosinophils % (A) 3 %; HGB 13.8 gm/dL (13.0-17.5); Hypochromasia Moderate; Lymphocytes # (A) 1.1 k/uL (1.0-4.8); Lymphocytes % (A) 12 %; MCH 27.3 pg (25.0-35.0); MCHC 31.3 g/dL (31.0-37.0); Mean Platelet Volume 7.3; Monocytes # (A) 0.3 k/uL (0-1.0); Monocytes % (A) 3 %; Neutrophils # (A) 7.8 k/uL (1.3-7.7); Neutrophils % (A) 81 %; Platelet Count 252 k/uL (150-450); RBC 5.06 m/uL (4.30-5.90); RDW 15.5 % (11.5-15.5); WBC 9.7 k/uL (3.8-10.6)
[2018-07-19 07:49] LABS: Calcium 9.9 mg/dL (8.4-10.2); Potassium 5.3 mmol/L (3.5-5.1)
[2018-07-19 07:50] LABS: MCV 87.1 fL (80.0-100.0)
[2018-07-19] MEDS ORDERED: LIDOCAINE 1% INJ 10MG/ML (20 ML MDV) SQ ONE (09:57)
[2018-07-19] MEDS ORDERED: MIDAZOLAM (PF) 2 MG/2 ML VIAL IVP ONE (10:00)
[2018-07-19] MEDS ORDERED: fentaNYL (PF) 50 MCG/ML 2 ML AMP IV ONE (10:08)
[2018-07-19] MEDS: HEPARIN SODIUM 1,000 UN/ML (10ML VL) IV ONE ×2 (10:09→10:53)
[2018-07-19] MEDS: niCARdipine Syringe (1,000 mcg/10 mL) INTRAARTER ONE ×2 (10:46→10:57)
[2018-07-19] MEDS ORDERED: CLOPIDOGREL 75 MG TAB PO ONE (10:55)
[2018-07-19] MEDS ORDERED: IOPAMIDOL-250 100ML BTL INTRAARTER ONE (11:04)
[2018-07-19] MEDS ORDERED: FUROSEMIDE 10 MG/ML 4 ML VIAL IV ONE (11:07)
[2018-07-19] MEDS ORDERED: SODIUM CHLORIDE 0.9% 1,000 ML IV SCH (11:15)
--- NOTE | 2018-07-19 11:38 | LTR ---
July 19, 2018 Re: Praneeth Downing Dear Dr. Domínguez: MrLucy Downing underwent successful balloon angioplasty of the right femoral artery with good angiographic results and without any complication. A few weeks ago, he underwent balloon angioplasty of the left femoral artery. I want to thank you for allowing us to participate in his care and please do not hesitate to call if you have any question or concern. Sincerely, MD LAVONNE Freedman / JENNIE: [id number] /
--- NOTE | 2018-07-19 11:43 | AN ---
ANGIOGRAPHY REPORT DATE OF SERVICE: 07/19/2018 PERFORMING PHYSICIAN: Ruddy Shultz MD, Receptionist Scheduler. PROCEDURE PERFORMED: 1. Selective right SFA angiogram. 2. Non selective right jdirp-mfv-fuix angiogram. 3. An atherectomy of the right SFA using the orbital atherectomy device from [employer]. 4. Successful balloon angioplasty of the right SFA using 4.0 mm intact drug-coated balloon with an excellent angiographic results and reduction of stenosis from 90% to 0%. INDICATION: This is a pleasant 78-year-old gentleman who sees Dr. Shamir Barajas in the office as an outpatient with history of peripheral arterial disease who was experiencing bilateral lower extremity intermittent claudication and he underwent a peripheral angiogram which showed severe bilateral femoral-popliteal disease. He underwent PATROL COMMUNITY SERVICE OFFICER of the left SFA/popliteal and he was brought today to undergo a PATROL COMMUNITY SERVICE OFFICER of the right SFA/popliteal. Complicated. APPROACH: Left common femoral artery. COMPLICATION: None. LEVEL OF SEDATION: Moderate with sedation length of 70 minutes. PROCEDURE DESCRIPTION: After obtaining an informed consent, the patient was brought to the cardiac medical lab assistant. The left common femoral artery was cannulated using micropuncture technique and a micropuncture wire passed easily. Then I placed a 6-Vincentian sheath 11 cm in the left common femoral artery. After that, I did select the right SFA using 0.035 [place] Advantage wire with a 5-Vincentian Rim catheter. The [place] Advantage wire was advanced all the way to the right SFA. Subsequently I did exchange my 11 cm 6-Vincentian sheath into 70 cm 6-Vincentian sheath using 0.035 [place] Advantage wire and the tip of the sheath was positioned in the right common femoral artery. After that, a non-selective right below- the-knee angiogram and selective right SFA/popliteal angiogram. After that, I did cross the lesion using 0.[address] wire which was subsequently exchanged into 0.014 Viper Wire preparing for orbital atherectomy, which was performed using the orbital atherectomy device from [employer] with 1.25 mm gibson. After that, I did balloon angioplasty initially using 3.5 mm chocolate balloon and subsequently 4 mm impacted drug coated balloon. The following angiogram showing excellent angiographic results and the procedure was completed without any complication. At that point, I did exchange my long sheath into short sheath using 0.035 Glidewire. The procedure was completed without any complication. By the end, I did selective left common femoral artery angiogram. POSTPROCEDURE MANAGEMENT: 1. Dual anti-platelet therapy. 2. Risk factors modifications. 3. Follow up with the patient. LAVONNE / JENNIE: [id number] /
[2018-07-19 12:50] LABS: Glucose,Whole Blood 98 mg/dL (75-99)
--- NOTE | 2018-07-19 13:05 | IR ---
Fluoroscopy HISTORY: Pain in right leg 13.3 minutes fluoroscopy time supplied to the referring clinician. 438 intraoperative C-arm images d ocument the procedure. See dictated report from cardiology.
[2018-07-19] MEDS ORDERED: ACETAMINOPHEN TAB 325 MG TAB PO PRN (14:59)
[2018-07-19 17:49] LABS: Glucose,Whole Blood 71 mg/dL (75-99)
[2018-07-19 18:45] LABS: Glucose,Whole Blood 81 mg/dL (75-99)
[2018-07-19 18:54] VITALS: BMI 29.2
[2018-07-19] MEDS: METOPROLOL TARTRATE 50 MG TAB PO SCH (19:50)
[2018-07-19] MEDS ORDERED: INSULIN DETEMIR (LEVEMIR) 100 UNIT/ML SYR SQ SCH (21:00)
[2018-07-19] MEDS ORDERED: ATORVASTATIN 10 MG TAB PO SCH (21:00)
[2018-07-19 21:17] LABS: Glucose,Whole Blood 115 mg/dL (75-99)
[2018-07-20 03:37] VITALS: RESP 18
[2018-07-20 06:18] LABS: Glucose,Whole Blood 113 mg/dL (75-99)
[2018-07-20 06:56] LABS: Basophils # (A) 0.1 k/uL (0-0.2); Basophils % (A) 1 %; Eosinophils # (A) 0.4 k/uL (0-0.7); Eosinophils % (A) 5 %; HCT 41.8 % (39.0-53.0); HGB 12.7 gm/dL (13.0-17.5); Hypochromasia Moderate; Lymphocytes # (A) 0.9 k/uL (1.0-4.8); Lymphocytes % (A) 12 %; MCH 26.7 pg (25.0-35.0); MCHC 30.4 g/dL (31.0-37.0); MCV 87.8 fL (80.0-100.0); Mean Platelet Volume 7.8; Monocytes # (A) 0.4 k/uL (0-1.0); Monocytes % (A) 5 %; Neutrophils # (A) 5.8 k/uL (1.3-7.7); Neutrophils % (A) 77 %; Platelet Count 254 k/uL (150-450); RBC 4.76 m/uL (4.30-5.90); RDW 15.5 % (11.5-15.5); WBC 7.5 k/uL (3.8-10.6)
[2018-07-20 07:15] LABS: Calcium 9.8 mg/dL (8.4-10.2); Potassium 5.6 mmol/L (3.5-5.1)
[2018-07-20] MEDS: METOPROLOL TARTRATE 50 MG TAB PO SCH (08:38)
[2018-07-20 08:41] VITALS: BP 118/57; PULSE 83; TEMP 98.1
--- NOTE | 2018-07-20 08:51 | P.DS ---
Providers Date of admission: July 192018 Attending physician: Ruddy Shultz Primary care physician: Danny Mendez [facility] Course: This is a pleasant 78-year-old gentleman who sees Dr. Barajas in the office on regular basis was admitted to the hospital yesterday and underwent successful atherectomy and balloon angioplasty of the right SFA/popliteal with a good angiographic results and without any complication from her left groin approach. I did see the patient this morning. He is doing good from the cardiovascular standpoint of view. The left groin is soft and nontender and without any bruises. The patient's going to be discharged home on dual antiplatelet therapy and I will follow-up with the patient in a week then the patient will be followed by Dr. GLENNA Barajas. Plan - Discharge Summary Discharge Rx Participant: No New Discharge Prescriptions: No Action Insulin Lispro [humaLOG Kwikpen] See Protocol SQ AC-TID PRN PRN Reason: Blood Sugar - High Insulin Glargine [Lantus] 44 unit SQ HS Metoprolol Tartrate [Lopressor] 50 mg PO BID Furosemide [Lasix] 40 mg PO QAM Simvastatin [Zocor] 20 mg PO HS Enalapril Maleate [Vasotec] 5 mg PO QAM Aspirin [Adult Low Dose Aspirin EC] 162 mg PO QAM Clopidogrel [Plavix] 75 mg PO QAM Discharge Medication List Aspirin [Adult Low Dose Aspirin EC] 162 mg PO QAM 04/13/17 [History] Enalapril Maleate [Vasotec] 5 mg PO QAM 04/13/17 [History] Furosemide [Lasix] 40 mg PO QAM 04/13/17 [History] Insulin Glargine [Lantus] 44 unit SQ HS 04/13/17 [History] Insulin Lispro [humaLOG Kwikpen] See Protocol SQ AC-TID PRN 04/13/17 [History] Metoprolol Tartrate [Lopressor] 50 mg PO BID 04/13/17 [History] Simvastatin [Zocor] 20 mg PO HS 04/13/17 [History] Clopidogrel [Plavix] 75 mg PO QAM 10/18/17 [History] Follow up Appointment(s)/Referral(s): Ruddy Shultz MD [STAFF PHYSICIAN] - 07/28/18 1:30 pm (James ) Patient Instructions/Handouts: Atherectomy (DC), Peripheral Artery Disease (DC)
[2018-07-20] MEDS ORDERED: ASPIRIN 81 MG PO SCH (09:00)
[2018-07-20] MEDS ORDERED: FUROSEMIDE 40 MG TAB PO SCH (09:00)
[2018-07-20] MEDS ORDERED: CLOPIDOGREL 75 MG TAB PO SCH (09:00)
[2018-07-20] MEDS ORDERED: LISINOPRIL 10 MG TAB PO SCH (09:00)
== END 2018-07-20 09:49 | disposition home or self-care (01) ==
LOC: CATHCVL 06:34 → 3SCARD 18:44 → CATHCVL 07-20 09:49
PROVIDERS: ATTEND Internal Medicine Interventional Cardiology
DX: E11.51 Type 2 diabetes mellitus with diabetic peripheral angiopathy without gangrene (principal); I70.213 Atherosclerosis of native arteries of extremities with intermittent claudication, bilateral legs; I25.10 Atherosclerotic heart disease of native coronary artery without angina pectoris; I10 Essential (primary) hypertension; F17.210 Nicotine dependence, cigarettes, uncomplicated; E78.5 Hyperlipidemia, unspecified; Z95.1 Presence of aortocoronary bypass graft; Z79.4 Long term (current) use of insulin; Z79.02 Long term (current) use of antithrombotics/antiplatelets; Z79.899 Other long term (current) drug therapy
CPT/HCPCS: 37225; 80048 ×2; 85025 ×2; C1894 ×3; C1714; C1769 ×5; C2623 ×2; J1940; J2001; J3010; J1644; Q9966; J2250

== ENCOUNTER → 2018-07-31 | Outpatient (CLI) | payer MEDICARE, BC ==
[2018-07-31 11:11] LABS: HCT 43.4 % (39.0-53.0); HGB 13.5 gm/dL (13.0-17.5); Hypochromasia Slight; MCH 26.9 pg (25.0-35.0); MCHC 31.1 g/dL (31.0-37.0); MCV 86.6 fL (80.0-100.0); Platelet Count 378 k/uL (150-450); RBC 5.01 m/uL (4.30-5.90); RDW 15.1 % (11.5-15.5); WBC 14.9 k/uL (3.8-10.6)
[2018-07-31 16:53] LABS: African American GFR (CKD) 47.8 (60.0-200.0); Anion Gap 11.3 mmol/L (4.00-12.00); BUN/Creat Ratio 26.25 Ratio (12.00-20.00); Carbon Dioxide 27.7 mmol/L (21.6-31.8); Potassium 4.3 mmol/L (3.5-5.5)
== END ==
LOC: LABWHC1 10:28
PROVIDERS: ATTEND Internal Medicine Interventional Cardiology
DX: I10 Essential (primary) hypertension (principal); I25.10 Atherosclerotic heart disease of native coronary artery without angina pectoris
CPT/HCPCS: 36415; 80048; 85027

== ENCOUNTER 2018-10-18 06:30 | Day surgery (SDC) | payer MEDICARE, BC ==
[2018-10-11 14:46] VITALS: BMI 28.5
[~2018-10-18 06:30] MED LIST changes: -ALPRAZolam 0.25 MG TAB PO PRN; +LACTATED RINGERS 1,000 ML IV SCH; +LIDOCAINE 1% 20 ML VIAL (10MG/ML) FOR IV START INTRADERMA PRN; +MIDAZOLAM 2 MG/2 ML VIAL IV PRN; +MOXIFLOXACIN HCL 0.5% DROPS 3 ML BTL OP ONE; -SODIUM CHLORIDE 0.9% 1,000 ML IV SCH; -SODIUM CHLORIDE 0.9% 1,000 ML in EMPTY BAG 1 BAG IV ONE; +TETRACAINE 0.5% OPHTH (PF) DROPS 4 ML BTL OP ONE; +TIMOLOL 0.5% OPHTH DROPS 5 ML BTL OP ONE
[2018-10-18 07:09] VITALS: RESP 16; TEMP 97.8
[2018-10-18] MEDS: PHENYLEPHRINE 2.5% OPHTH DRP 2ML OP NR ×3 (07:13→07:27)
[2018-10-18 07:15] LABS: Glucose,Whole Blood 112 mg/dL (75-99)
[2018-10-18] MEDS: CYCLOPENTOLATE 1% OPHTH SOLN 2 ML BTL OP ONE ×3 (07:17→07:30)
[2018-10-18] MEDS ORDERED: fentaNYL (PF) 50 MCG/ML 2 ML AMP IV PRN (07:27)
[2018-10-18] MEDS ORDERED: fentaNYL (PF) 50 MCG/ML 2 ML AMP ONE (08:01)
[2018-10-18] MEDS ORDERED: MIDAZOLAM 2 MG/2 ML VIAL ONE (08:01)
[2018-10-18] MEDS ORDERED: LIDOCAINE 1% (PF) 10MG/ML VIAL SQ ONE (08:03)
[2018-10-18] MEDS ORDERED: BALANCED SALT IRRIG SOLN COMB2 15 ML IRRIG.SOLN INTRAOCULA ONE (08:03)
[2018-10-18] MEDS ORDERED: DUOVISC KIT (GREEN BOX) INTRAOCULA ONE (08:04)
[2018-10-18] MEDS ORDERED: EPINEPHrine (PF) 0.3 ML in BALANCED SALT IRRIG SOLN COMB2 500 ML IRRIGATION ONE (08:05)
--- NOTE | 2018-10-18 08:28 | P.OP ---
Date of Procedure: 10/18/18 Preoperative Diagnosis: NS & CS Postoperative Diagnosis: same Procedure(s) Performed: PCIOL, OD Implants: [id number] 24.50 Anesthesia: MAC Surgeon: Troy Koenig Pathology: none sent Condition: stable Disposition: same day Indications for Procedure: blurry vision Operative Findings: no complications
[2018-10-18 08:50] VITALS: BP 121/76; PULSE 65
--- NOTE | 2018-10-18 14:55 | OP ---
OPERATIVE REPORT DATE OF SURGERY: 10/18/2018 PROCEDURE: Phacoemulsification of cataract and intraocular lens implant of the right eye. PREOPERATIVE DIAGNOSIS: Nuclear sclerosis, cortical sclerosis. POSTOPERATIVE DIAGNOSIS: Nuclear sclerosis, cortical sclerosis. OPERATION: Clear cornea phacoemulsification of cataract of the right eye. ESTIMATED BLOOD LOSS: Zero. SPECIMEN TAKEN: None. NARRATIVE: After obtaining the appropriate consent, the patient was brought to the Operating Room where the patient was placed under cardiac monitoring and prepped and draped in the usual sterile manner. At the 11 o'clock position a 15 degree super sharp blade was used to create a paracentesis followed by instillation of 1% Xylocaine MPF 50:50 mix with BSS into the anterior chamber. This was followed by Duovisc to stabilize the anterior chamber. At the 9 o'clock position a self-sealing corneal flap incision was created using 2.8 mm gibson keratome. A cystatome was used to initiate a continuous tear capsulorrhexis which was completed with the Utrata forceps. A Binkhorst cannula was used to hydrodissect the lens nucleus followed by hydrodelineation. Phacoemulsification of the lens was performed utilizing phacochop in 36 seconds at 23% power. The remaining cortical material was removed using the irrigation aspiration mode followed by additional 1% Xylocaine MPF into the anterior chamber followed by viscoelastic to stabilize the capsular bag. An Horacio and Horacio PCB 00 24.5 diopters posterior chamber lens was placed into the capsular bag without difficulty. The remaining viscoelastic material was removed from the anterior chamber with the irrigation/aspiration. Balanced salt solution was used to normalize the intraocular pressure. The incision was checked for watertight integrity. The patient then received two drops of 0.5% timolol followed by two drops Vigamox, was lightly patched and shielded in the usual manner. There were no complications from the procedure. The patient tolerated the procedure well and was returned to recovery in good condition. MMODL / IJN: [id number] /
== END 2018-10-18 09:40 | disposition home or self-care (01) ==
LOC: OR 06:30
PROVIDERS: ATTEND Ophthalmology
DX: E11.36 Type 2 diabetes mellitus with diabetic cataract (principal); H25.813 Combined forms of age-related cataract, bilateral; H00.023 Hordeolum internum right eye, unspecified eyelid; H00.026 Hordeolum internum left eye, unspecified eyelid; H04.123 Dry eye syndrome of bilateral lacrimal glands; E11.40 Type 2 diabetes mellitus with diabetic neuropathy, unspecified; I10 Essential (primary) hypertension; E78.00 Pure hypercholesterolemia, unspecified; J44.9 Chronic obstructive pulmonary disease, unspecified; I25.10 Atherosclerotic heart disease of native coronary artery without angina pectoris; I25.2 Old myocardial infarction; Z95.5 Presence of coronary angioplasty implant and graft; Z86.718 Personal history of other venous thrombosis and embolism; M06.9 Rheumatoid arthritis, unspecified; Z97.3 Presence of spectacles and contact lenses; Z79.4 Long term (current) use of insulin; Z79.02 Long term (current) use of antithrombotics/antiplatelets; Z79.899 Other long term (current) drug therapy; Z95.1 Presence of aortocoronary bypass graft
CPT/HCPCS: 66984; C1780; J2250; J0171; J3010; J2001

== ENCOUNTER 2018-12-13 06:40 | Day surgery (SDC) | payer MEDICARE, BC ==
[2018-12-08 15:41] VITALS: BMI 28.5
[~2018-12-13 06:40] MED LIST changes: -MIDAZOLAM 2 MG/2 ML VIAL IV PRN
[2018-12-13 07:20] VITALS: RESP 18; TEMP 97.8
[2018-12-13] MEDS ORDERED: LACTATED RINGERS 1,000 ML IV ONE (07:20)
[2018-12-13] MEDS: CYCLOPENTOLATE 1% OPHTH SOLN 2 ML BTL OP ONE ×3 (07:25→07:37)
[2018-12-13] MEDS: PHENYLEPHRINE 2.5% OPHTH DRP 2ML OP NR ×3 (07:28→07:40)
[2018-12-13 07:33] LABS: Glucose,Whole Blood 148 mg/dL (75-99)
[2018-12-13] MEDS ORDERED: BALANCED SALT IRRIG SOLN COMB2 15 ML IRRIG.SOLN IRRIGATION ONE (07:48)
[2018-12-13] MEDS ORDERED: HYALURONATE SODIUM INTRAOCULAR 1 EACH SYRINGE (12MG/ML) INTRAOCULA ONE (07:48)
[2018-12-13] MEDS ORDERED: LIDOCAINE 1% (PF) 10MG/ML VIAL SQ ONE (07:48)
[2018-12-13] MEDS ORDERED: MIDAZOLAM 2 MG/2 ML VIAL ONE (08:09)
[2018-12-13] MEDS ORDERED: fentaNYL (PF) 50 MCG/ML 2 ML AMP ONE (08:09)
[2018-12-13] MEDS ORDERED: EPINEPHrine (PF) 0.3 ML in BALANCED SALT IRRIG SOLN COMB2 500 ML IRRIGATION ONE (08:19)
--- NOTE | 2018-12-13 08:31 | P.OP ---
Date of Procedure: 12/13/18 Preoperative Diagnosis: NS & CS Postoperative Diagnosis: same Procedure(s) Performed: PIOL, OS Implants: PCB00 24.50 Anesthesia: MAC Surgeon: Troy Koenig Estimated Blood Loss (ml): 0 Pathology: none sent Condition: stable Disposition: same day Indications for Procedure: blurry vision Operative Findings: no complications
[2018-12-13 09:26] VITALS: BP 156/78; PULSE 70
--- NOTE | 2018-12-13 17:48 | OP ---
OPERATIVE REPORT DATE OF SURGERY: 12/13/2018. PROCEDURE: Phacoemulsification of cataract and intraocular lens implant of the left eye. PREOPERATIVE DIAGNOSIS: Nuclear sclerosis, cortical sclerosis, left eye. POSTOPERATIVE DIAGNOSIS: Nuclear sclerosis, cortical sclerosis, left eye. ESTIMATED BLOOD LOSS: Zero. SPECIMEN TAKEN: None. NARRATIVE: After obtaining the appropriate consent, the patient was brought to the operating room, where the patient was placed under cardiac monitoring and prepped and draped in the usual sterile manner. At the 5 o'clock position a 15-degree super sharp blade was used to create a paracentesis followed by instillation of 1% Xylocaine MPF 50:50 mix with BSS into the anterior chamber. This was followed by Amvisc to stabilize the anterior chamber. At the 3 o'clock position a self-sealing corneal flap incision was created using 2.8 mm gibson keratome. A cystotome was used to initiate a continuous tear capsulorrhexis, which was completed with the Utrata forceps. A Binkhorst cannula was used to hydrodissect the lens nucleus followed by hydrodelineation. Phacoemulsification of the lens was performed utilizing phaco chop in 19.99 seconds at 22% power. The remaining cortical material was removed using the irrigation aspiration mode followed by additional 1% Xylocaine MPF into the anterior chamber followed by viscoelastic to stabilize the capsular bag. A Horacio & Horacio PCB 00 24.5 diopter posterior chamber lens was placed into the capsular bag without difficulty. The remaining viscoelastic material was removed from the anterior chamber with the irrigation/aspiration. Balanced salt solution was used to normalize the intraocular pressure. The incision was checked for watertight integrity. The patient then received two drops of 0.5% timolol followed by two drops Vigamox, was lightly patched and shielded in the usual manner. There were no complications from the procedure. The patient tolerated the procedure well and was returned to recovery in good condition. MMODL / IJN: [id number] /
== END 2018-12-13 09:05 | disposition home or self-care (01) ==
LOC: OR 06:40
PROVIDERS: ATTEND Ophthalmology
DX: H25.12 Age-related nuclear cataract, left eye (principal); H25.012 Cortical age-related cataract, left eye; H00.023 Hordeolum internum right eye, unspecified eyelid; H00.026 Hordeolum internum left eye, unspecified eyelid; H04.123 Dry eye syndrome of bilateral lacrimal glands; E11.40 Type 2 diabetes mellitus with diabetic neuropathy, unspecified; I25.10 Atherosclerotic heart disease of native coronary artery without angina pectoris; I11.9 Hypertensive heart disease without heart failure; J43.9 Emphysema, unspecified; M19.90 Unspecified osteoarthritis, unspecified site; F32.9 Major depressive disorder, single episode, unspecified; I25.2 Old myocardial infarction; E78.00 Pure hypercholesterolemia, unspecified; K21.9 Gastro-esophageal reflux disease without esophagitis; E78.5 Hyperlipidemia, unspecified; I73.9 Peripheral vascular disease, unspecified; K08.89 Other specified disorders of teeth and supporting structures; Z98.890 Other specified postprocedural states; Z90.89 Acquired absence of other organs; Z87.81 Personal history of (healed) traumatic fracture; Z79.82 Long term (current) use of aspirin; Z79.899 Other long term (current) drug therapy; Z79.02 Long term (current) use of antithrombotics/antiplatelets; Z79.4 Long term (current) use of insulin; Z97.3 Presence of spectacles and contact lenses; Z96.1 Presence of intraocular lens; Z80.8 Family history of malignant neoplasm of other organs or systems; Z83.3 Family history of diabetes mellitus; Z82.49 Family history of ischemic heart disease and other diseases of the circulatory system
CPT/HCPCS: 66984; C1780; J2250; J0171; J3010; J2001

== ENCOUNTER 2020-06-17 06:10 | Day surgery (SDC) | payer MEDICARE, BC ==
[2020-06-16 09:46] VITALS: BMI 31.4
[2020-06-17] MEDS ORDERED: SODIUM CHLORIDE 0.9% 1,000 ML IV SCH ×2 (06:42)
[2020-06-17] MEDS ORDERED: ceFAZolin 1 GM in SODIUM CHLORIDE 0.9% 250 ML IRRIGATION PRN (06:42)
[2020-06-17 07:11] VITALS: RESP 16; TEMP 98.2
[2020-06-17] MEDS: INSULIN ASPART (NovoLOG) 100 UNIT/ML VIAL SQ SCH ×2 (07:34→13:04)
[2020-06-17 07:42] LABS: Calcium 9.6 mg/dL (8.4-10.2); Potassium 5.1 mmol/L (3.5-5.1)
[2020-06-17] MEDS ORDERED: PROPOFOL 10 MG/ML 20 ML VIAL IV ONE (08:08)
[2020-06-17] MEDS ORDERED: fentaNYL (PF) 50 MCG/ML 2 ML AMP ONE (08:08)
[2020-06-17] MEDS ORDERED: FUROSEMIDE 10 MG/ML 2 ML VIAL ONE (08:08)
[2020-06-17] MEDS ORDERED: MIDAZOLAM 2 MG/2 ML VIAL ONE (08:08)
[2020-06-17] MEDS ORDERED: IV FLUID CONTINUATION 950 ML IV ONE (08:11)
[2020-06-17 08:19] LABS: Glucose,Whole Blood 265 mg/dL (75-99)
[2020-06-17] MEDS ORDERED: IOPAMIDOL-370 50ML BTL INJ ONE (08:37)
[2020-06-17] MEDS: IOPAMIDOL-370 50ML BTL INJ ONE ×3 (08:41→10:00)
[2020-06-17] MEDS ORDERED: LIDOCAINE 1% INJ 10MG/ML (20 ML MDV) ONE (08:58)
[2020-06-17] MEDS ORDERED: LIDOCAINE 1% INJ 10MG/ML (20 ML MDV) SQ ONE (09:16)
[2020-06-17] MEDS ORDERED: ACETAMINOPHEN IV (For NPO) 1,000 MG in EMPTY BAG 1 BAG IVPB ONE ×2 (11:58→13:15)
[2020-06-17] MEDS ORDERED: ACETAMINOPHEN TAB 325 MG TAB PO PRN (11:58)
[2020-06-17 12:08] LABS: Glucose,Whole Blood 185 mg/dL (75-99)
--- NOTE | 2020-06-17 12:42 | XR ---
EXAMINATION TYPE: XR chest 1V portable DATE OF EXAM: 06/17/2020 COMPARISON: 12/11/2012 HISTORY: Lead placement check TECHNIQUE: Single frontal view of the chest is obtained. FINDINGS: Heart is enlarged and there is postoperative change. Cardiac device seen. No sizable pneum othorax. Diffuse interstitial pattern with tiny effusions. Diffuse osteopenia. IMPRESSION: 1. Diffuse interstitial pattern correlate for venous congestion or interstitial pneumonitis.
--- NOTE | 2020-06-17 12:44 | P.EPPROC ---
- EP Procedure Note Electrophysiology Procedure Note: Left upper extremity venogram 15 mL IV dye injected into the left arm Patent left axillary vein patent left subclavian veins Plan Proceed with biventricular ICD implantation Extended procedure The biventricular ICD implantation was an extended procedure. The reasons for this were namely anatomy of the coronary veins. The Zack sinus but he was very and very diminutive and and the coronary veins were very diminutive. The patient had an anterior vein him a lateral vein, a posterior lateral vein and the middle cardiac vein. The lateral vein was targeted. This was a tortuous vein with an initial U-turn loop followed by an area of mild stenosis in the mid section. While able to pass the subselectively sheath into the ostium, a wire would not pass into this vein distally and was simply keep looping out on account of the area of stenosis. Anterior vein was also quite tortuous and the LV lead poles 1 and 2 past into the lateral vein while the proximal pole and both 3 remained in the coronary sinus body. The anterior vein results diminutive in size The RV was enlarged with high pressures. A long ICD lead of 65 cm was used as compared to our usual standard length. Multiple sites of were attempted. Finally the lead was positioned in the RV apex and screwed in excellent thresholds
--- NOTE | 2020-06-17 13:29 | CE ---
CARDIAC ELECTROPHYSIOLOGY REPORT This 80-year-old male patient with severe cardiomyopathy and severe heart failure, ischemic in nature, who has a wide QRS, left bundle branch block morphology. He has class 3 congestive heart failure. He is brought in for a biventricular ICD implantation for management of heart failure and primary prevention of sudden cardiac . Patient is brought to the EP lab in a fasting state. Written informed consent was obtained prior to the procedure. The procedure was performed under conscious sedation. A Khalil catheter was placed. IV Lasix was administered and the patient remained comfortable thereafter in the supine position. The left pectoral area was prepped and draped as per protocol and 1% lidocaine was used for local anesthesia. At first, IV antibiotics were administered. A 4 cm incision was made parallel to the deltopectoral groove, about 1.5 cm medial to it. The incision was carried down to the level of the pectoralis muscle. A subfascial pocket was made. Hemostasis was assured. The left axillary vein was accessed at 3 separate points under fluoroscopy. The venous sheaths were placed. The atrial lead was [employer], model #2088TC, 52 cm in length and serial #[id number]. This was screwed in the right atrial appendage stump. P waves 2.3 mV, pacing impedance 490 ohms, pacing threshold 0.5 V at 0.5 milliseconds. Ten volt test negative. The longer length ICD lead was used on account of an enlarged right ventricle. This was a [employer] model #[id number], 65 cm in length and serial #[id number]. Multiple positions were sought, but most stable position was in the RV apex. The lead was screwed in. R-waves greater than 12 mV, pacing impedance 550 ohms, pacing threshold 0.75 V at 0.5 milliseconds. Ten volt test was negative The LV lead was positioned in the anterior vein. Coronary sinus access was obtained. Sheath was placed in the coronary sinus. The coronary sinus body was tortuous. The patient had very diminutive anterior vein, anterolateral vein with tortuosity, posterolateral vein of a short length, diminutive in size and middle cardiac vein. The first lateral vein was targeted. While we were able to get into the lateral vein and its tortuosity, the lead would not advance further beyond the tortuosity (loop). Therefore, the anterior vein was targeted. The anterior vein also was diminutive and only LV pole 1 and 2 entered into the vein. The lead was very stable and the thresholds are excellent. There was diaphragmatic stimulation at 10 V, but at 5 V there was no diaphragmatic stimulation. Ventricular pacing thresholds were 0.75 V at 0.5 milliseconds, pacing impedance of 1100 ohms. The leads were then secured to the underlying pectoralis fascia using 2 nonabsorbable sutures. Pocket was irrigated with antibiotic solution. Leads were connected to the generator ([employer], model CDHF A500Q, serial #[id number]. The lead and generator were then placed in subfascial pocket. The wound was closed in 3 layers and dressed per protocol. RESULTS: Successful biventricular ICD implantation for management of heart failure in this gentleman with underlying ischemic cardiomyopathy with severe left ventricular dysfunction and severe heart failure with left bundle branch block. The device was then programmed to DDD mode at 50 bpm with AV sync turned on. MADIT-RIT programming for tachy therapies. DFT testing was deferred at this point. PLAN: IV antibiotics and maximization of heart failure medications. Patient will follow up with Dr. Barajas as before. MMODL / IJN: [id number] /
[2020-06-17 13:36] VITALS: BP 126/58; PULSE 55
== END 2020-06-17 14:25 | disposition home or self-care (01) ==
LOC: CATHEP 06:10
PROVIDERS: ATTEND Internal Medicine Clinical Cardiac Electrophysiology
DX: I25.5 Ischemic cardiomyopathy (principal); I44.7 Left bundle-branch block, unspecified; I50.32 Chronic diastolic (congestive) heart failure; I44.0 Atrioventricular block, first degree; Z00.6 Encounter for examination for normal comparison and control in clinical research program; E11.22 Type 2 diabetes mellitus with diabetic chronic kidney disease; I13.0 Hypertensive heart and chronic kidney disease with heart failure and stage 1 through stage 4 chronic kidney disease, or unspecified chronic kidney disease; N18.9 Chronic kidney disease, unspecified; I25.118 Atherosclerotic heart disease of native coronary artery with other forms of angina pectoris; E11.40 Type 2 diabetes mellitus with diabetic neuropathy, unspecified; E11.51 Type 2 diabetes mellitus with diabetic peripheral angiopathy without gangrene; I25.2 Old myocardial infarction; J44.9 Chronic obstructive pulmonary disease, unspecified; K21.9 Gastro-esophageal reflux disease without esophagitis; E78.5 Hyperlipidemia, unspecified; Z95.1 Presence of aortocoronary bypass graft; Z95.820 Peripheral vascular angioplasty status with implants and grafts; Z87.891 Personal history of nicotine dependence; Z20.822 Contact with and (suspected) exposure to COVID-19; Z79.899 Other long term (current) drug therapy; Z79.02 Long term (current) use of antithrombotics/antiplatelets; Z79.4 Long term (current) use of insulin; Z79.82 Long term (current) use of aspirin
CPT/HCPCS: 33225; 33249; 80048; 87635; 71045; C1769 ×6; C1882; C1730; C1892; C1898; C1900; C1777; J2250; J1940; J0690; J2001; J3010; J0131; J2704; Q9967

== ENCOUNTER 2020-09-26 17:17 | Inpatient (IN) | payer MEDICARE, BC ==
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
[2020-09-26 18:40] LABS: Basophils % (A) 0 %; Eosinophils # (A) 0.1 k/uL (0-0.7); Eosinophils % (A) 1 %; HCT 40.8 % (39.0-53.0); HGB 13.4 gm/dL (13.0-17.5); Lymphocytes # (A) 0.8 k/uL (1.0-4.8); Lymphocytes % (A) 10 %; MCH 29.8 pg (25.0-35.0); MCV 90.4 fL (80.0-100.0); Mean Platelet Volume 8.3; Monocytes # (A) 0.3 k/uL (0-1.0); Monocytes % (A) 4 %; Neutrophils # (A) 6.9 k/uL (1.3-7.7); Neutrophils % (A) 83 %; Platelet Count 185 k/uL (150-450); RBC 4.51 m/uL (4.30-5.90); RDW 15.5 % (11.5-15.5); WBC 8.3 k/uL (3.8-10.6)
[2020-09-26 18:59] LABS: INR 0.9 (<1.2); Partial Thromboplastin Time 24.2 sec (22.0-30.0); Prothrombin Time 10.2 sec (9.0-12.0)
--- NOTE | 2020-09-26 19:00 | XR ---
EXAMINATION TYPE: XR chest 2V DATE OF EXAM: 09/26/2020 COMPARISON: 06/17/2020 HISTORY: Check lead placement TECHNIQUE: 2 views FINDINGS: Heart is enlarged. There is left axillary pacemaker with the lead tips in the right ventric le. There are sternal wires. There are chest leads. There is pulmonary vascular mild congestion. Ther e is slight blunting of the costophrenic angles. IMPRESSION: There is evidence for some minimal heart failure that is improved compared to old exam.
[2020-09-26 19:04] LABS: Albumin 3.5 g/dL (3.5-5.0); Calcium 8.9 mg/dL (8.4-10.2); Potassium 5.7 mmol/L (3.5-5.1); Total Bilirubin 0.5 mg/dL (0.2-1.3); Total Protein 6.1 g/dL (6.3-8.2)
[2020-09-26 19:11] LABS: Appearance,Urine Cloudy (Clear); Bacteria,Urine Rare /hpf; Bilirubin,Urine Negative (Negative); Blood,Urine Trace (Negative); Color,Urine Yellow; Glucose,Urine (UA) Trace (Negative); Hyaline Casts,Urine 3 /lpf (0-2); Ketones,Urine Negative (Negative); Leukocyte Esterase,Urine Moderate (Negative); Nitrite,Urine Negative (Negative); Protein,Urine 1+ (Negative); RBC,Urine 2 /hpf (0-5); Specific Gravity,Urine 1.014 (1.001-1.035); Squamous Epithelial Cell,Urine 6 /hpf (0-4); Urobilinogen,Urine <2.0 mg/dL (<2.0); WBC,Urine 13 /hpf (0-5)
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
[2020-09-26] MEDS ORDERED: NALOXONE 0.4 MG/ML 1 ML VIAL IV PRN (19:55)
[2020-09-26] MEDS ORDERED: DEXTROSE 50% SYRINGE 50 ML IVP STA (21:50)
[2020-09-26] MEDS ORDERED: INSULIN REGULAR 100 UNIT/ML VIAL (IV) IV ONE (21:50)
[2020-09-26 22:19] LABS: Glucose,Whole Blood 117 mg/dL (75-99)
[2020-09-27 03:04] LABS: African American GFR (CKD) 7 (>60 ml/min/1.73 sqM); Anion Gap 14 mmol/L; Blood Urea Nitrogen 66 mg/dL (9-20); Calcium 8.9 mg/dL (8.4-10.2); Carbon Dioxide 18 mmol/L (22-30); Chloride 103 mmol/L (98-107); Glucose 123 mg/dL (74-99); Non-African American GFR(CKD) 6 (>60 ml/min/1.73 sqM); Potassium 4.8 mmol/L (3.5-5.1); Sodium 135 mmol/L (137-145)
[2020-09-27 07:07] LABS: Glucose,Whole Blood 199 mg/dL (75-99)
[2020-09-27] MEDS ORDERED: NITROGLYCERIN SL TABS 0.4 MG TAB SUBLINGUAL PRN (08:16)
[2020-09-27] MEDS ORDERED: ALBUTEROL NEBULIZED 2.5 MG/3 ML INHALATION PRN (08:16)
[2020-09-27] MEDS ORDERED: INSULIN NPH 300 UNIT/3 ML VIAL SQ ONE (09:00)
[2020-09-27] MEDS ORDERED: FUROSEMIDE 10 MG/ML 10 ML VIAL IV STA (09:00)
[2020-09-27 09:21] LABS: Magnesium 1.9 mg/dL (1.6-2.3); Phosphorus 7.6 mg/dL (2.5-4.5)
[2020-09-27] MEDS: ISOSORBIDE MONONITRATE ER 30 MG TAB.ER.24H PO SCH (09:48)
[2020-09-27] MEDS: METOPROLOL TARTRATE 50 MG TAB PO SCH ×2 (09:48→21:57)
[2020-09-27] MEDS: ASPIRIN 81 MG PO SCH (09:48)
[2020-09-27] MEDS: RANOLAZINE 500 MG TAB.ER.12H PO SCH (09:48)
--- NOTE | 2020-09-27 10:39 | US ---
EXAMINATION TYPE: US kidneys/renal and bladder DATE OF EXAM: 09/27/2020 COMPARISON: NONE CLINICAL HISTORY: elevated cr.. elevated labs, no symptoms EXAM MEASUREMENTS: Right Kidney: 10.7 x 4.8 x 5.8cm Left Kidney: 11.8 x 4.1 x 5.8cm Right Kidney: No hydronephrosis or masses seen Left Kidney: No hydronephrosis or masses seen Bladder: not distended There is no evidence for hydronephrosis at this point in time. No nephrolithiasis is seen. No keren s are identified. IMPRESSION: 1. Normal renal ultrasound
[2020-09-27 11:23] LABS: Glucose,Whole Blood 207 mg/dL (75-99)
[2020-09-27 11:53] LABS: Basophils # (A) 0.03 X 10*3/uL (0.00-0.10); Basophils % (A) 0.4 %; Eosinophils # (A) 0.21 X 10*3/uL (0.04-0.35); Eosinophils % (A) 2.7 %; HCT 44.6 % (39.6-50.0); Lymphocytes # (A) 1.05 X 10*3/uL (0.90-5.00); Lymphocytes % (A) 13.4 %; MCH 28.6 pg (27.0-32.0); MCHC 31.4 g/dL (32.0-37.0); Mean Platelet Volume 10.8 fL (9.5-12.2); Monocytes # (A) 0.59 X 10*3/uL (0.20-1.00); Monocytes % (A) 7.6 %; Neutrophils % (A) 75.5 %; Platelet Count 177 X 10*3/uL (140-440); RDW 15.2 % (11.5-14.5); WBC 7.81 X 10*3/uL (4.50-10.00)
[2020-09-27 12:03] LABS: African American GFR (CKD) 7.2 (60.0-200.0); Anion Gap 15.6 mmol/L (4.00-12.00); BUN/Creat Ratio 9.34 Ratio (12.00-20.00); Calcium 9.1 mg/dL (8.7-10.3); Carbon Dioxide 16.4 mmol/L (21.6-31.8); Non-African American GFR(CKD) 6.2 (60.0-200.0); Potassium 5.4 mmol/L (3.5-5.5)
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
[2020-09-27] MEDS: INSULIN ASPART (NovoLOG) 100 UNIT/ML VIAL SQ SCH ×3 (12:29→21:58)
[2020-09-27] MEDS: SEVELAMER 800 MG TAB PO SCH ×2 (12:30→17:22)
--- NOTE | 2020-09-27 13:17 | CONS ---
CONSULTATION REASON FOR CONSULT: Renal failure. HISTORY OF PRESENT ILLNESS: The patient is a 80-year-old male with a previous history of type 2 diabetes, hypertension, and coronary artery disease who was admitted to the hospital with complaints of shortness of breath, worsening lower extremity edema and abnormal labs as well. The patient stated that he had not been voiding much previously. Currently his urine output seems to have improved. On admission, he is noted to have a serum creatinine of 7.1 and 7.5 mg/dL when prior creatinine on 06/17/2020 was 1.5. The patient was maintained on angiotensin receptor blockers at home. He denies use of any nonsteroidal anti-inflammatory agents. Blood pressure was slightly on the lower side with systolic around 103, but currently about 145. He did have a systolic of 98 mmHg on initial admission. PAST MEDICAL HISTORY: Type 2 diabetes, coronary artery disease, CKD stage 3, baseline creatinine 1.5; COPD, hyperlipidemia, gastroesophageal reflux disease, rheumatoid arthritis, pneumonia, exposure to [place], DVTs in the left leg, neuropathy, bilateral feet. PAST SURGICAL HISTORY: Adenoidectomy, coronary artery bypass surgery, cardiac catheterization, coronary stent placement, tonsillectomy, right carotid endarterectomy, cataract surgery. SOCIAL HISTORY: Patient is a former smoker. No history of drug abuse or alcohol abuse. MEDICATIONS: Medications prior to admission included Lasix, aspirin, insulin, Lopressor, Plavix, Cozaar, albuterol, Lipitor, Neurontin, Imdur, Ranexa, insulin. ALLERGIES: None. REVIEW OF SYSTEMS: As per HPI. Other systems negative. EXAMINATION: Patient is comfortable, awake, not in any acute distress. Blood pressure this morning 145/79, heart rate 72 per minute, he is afebrile. Alert and oriented x3. HEENT atraumatic, normocephalic. Pupils are equal round. JVP is elevated. DIRECTOR EXPERIMENTAL MEDICINE exam grossly intact. Examination of the heart S1, S2. Examination of lungs, decreased breath sounds at the bases. Abdomen is soft, nontender. Examination of lower extremities shows edema 2+ bilaterally. DIRECTOR EXPERIMENTAL MEDICINE exam grossly intact. LAB: Show sodium of 135, potassium 4.8, chloride 103, CO2 is 18, BUN 66, serum creatinine 7.59, phosphorus 7.6, magnesium 1.9, hemoglobin 14.0. ASSESSMENT: 1. Acute kidney injury, rule out obstructive uropathy. If there is no obstruction, then most likely disease ATN associated with hypotension hypoperfusion with the blood pressure as low as 98 mmHg for systolic in the setting of use of angiotensin receptor blockers. No other nephrotoxic agents according to patient. He is currently volume overloaded and will need to be diuresed. If ejection fraction is low patient may benefit from inotropic agents, i.e. dobutamine. UA shows 1+ protein, trace blood, WBCs 13. I will hold off on IV fluids and will give one dose of IV Lasix. Check post-void residual scan. Check ultrasound of the kidneys and repeat labs later on today. 2. Chronic kidney disease stage 3. Previous creatinine about 1.5, mostly stage 3A. Etiology is diabetic kidney disease. The patient has 1+ protein on UA. 3. Metabolic acidosis associated with renal failure. 4. Hyperphosphatemia secondary to renal failure. 5. History of deep vein thrombosis. 6. Type 2 diabetes. 7. History of coronary artery disease status post coronary artery bypass surgery. PLAN: Check bladder scan. Hold Cozaar. Check ultrasound of the kidneys. IV Lasix x1 and repeat labs today. Check accurate I's and O's. Thank you for this consultation. We will continue to follow the patient with you during his hospitalization. MMODL / IJN: [id number] /
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
[2020-09-27 17:01] LABS: Glucose,Whole Blood 100 mg/dL (75-99)
[2020-09-27] MEDS: IPRATROPIUM-ALBUTEROL 3 ML NEB INHALATION SCH (20:52)
[2020-09-27] MEDS ORDERED: INSULIN DETEMIR (LEVEMIR) 100 UNIT/ML SYR SQ SCH ×2 (21:00)
[2020-09-27 21:06] LABS: Glucose,Whole Blood 216 mg/dL (75-99)
[2020-09-27] MEDS: ATORVASTATIN 20 MG TAB PO SCH (21:57)
[2020-09-27] MEDS: ISOSORBIDE MONONITRATE ER 60 MG TAB.ER.24H PO SCH (21:57)
[2020-09-27] MEDS: GABAPENTIN 100 MG CAP PO SCH (21:57)
[2020-09-28 03:25] LABS: African American GFR (CKD) 6 (>60 ml/min/1.73 sqM); Anion Gap 15 mmol/L; Blood Urea Nitrogen 80 mg/dL (9-20); Calcium 8.8 mg/dL (8.4-10.2); Carbon Dioxide 16 mmol/L (22-30); Chloride 104 mmol/L (98-107); Glucose 140 mg/dL (74-99); Non-African American GFR(CKD) 5 (>60 ml/min/1.73 sqM); Potassium 5.5 mmol/L (3.5-5.1); Sodium 135 mmol/L (137-145)
[2020-09-28 07:25] LABS: Glucose,Whole Blood 90 mg/dL (75-99)
[2020-09-28] MEDS: INSULIN ASPART (NovoLOG) 100 UNIT/ML VIAL SQ SCH ×4 (07:35→21:29)
[2020-09-28] MEDS: IPRATROPIUM-ALBUTEROL 3 ML NEB INHALATION SCH ×3 (07:44→20:59)
[2020-09-28] MEDS: SEVELAMER 800 MG TAB PO SCH (08:16)
[2020-09-28] MEDS: METOPROLOL TARTRATE 50 MG TAB PO SCH ×2 (08:16→21:28)
[2020-09-28] MEDS: ASPIRIN 81 MG PO SCH (08:16)
[2020-09-28] MEDS: ISOSORBIDE MONONITRATE ER 30 MG TAB.ER.24H PO SCH (08:17)
[2020-09-28] MEDS: RANOLAZINE 500 MG TAB.ER.12H PO SCH (08:17)
[2020-09-28 11:44] LABS: Glucose,Whole Blood 151 mg/dL (75-99)
--- NOTE | 2020-09-28 12:21 | PN ---
PROGRESS NOTE Patient is seen for followup for acute kidney injury. The patient was admitted with a serum creatinine of about 7.1. It has progressively increased to 8.4 today. His urine output has not been measured as he has had loose watery stools with the urine as well. The patient received a dose of IV Lasix yesterday. He continues to be mildly short of breath. Patient is complaining of increased nausea. He has not been able to eat much. Ultrasound did not show any evidence of hydronephrosis. Postvoid urine volume was only 46 mL. Patient denies any history of use of new medications prior to admission. No history of rashes to suggest underlying acute interstitial nephritis. EXAMINATION: Today patient is comfortable. He states he is mildly short of breath, also complaining of nausea. Daughter is present at bedside. Blood pressure is 131/68, heart rate 78 per minute, he is afebrile. Examination of the heart S1, S2. Examination of the lungs, bilateral breath sounds are heard. Decreased breath sounds at bases. Abdomen is soft, obese. Exam of lower extremities shows edema bilaterally with chronic skin changes. Bilateral legs are currently wrapped. [employer]MENT[employer] exam grossly intact. LAB: Show sodium 135, potassium 5.5, chloride 104, CO2 16, BUN 80, creatinine 8.54. ASSESSMENT: 1. Acute kidney injury, mostly acute tubular necrosis. Rule out any other underlying glomerulonephritis versus acute interstitial nephritis. Will check urine for eosinophiles and start patient on dialysis as he is symptomatic. Hopefully we can get a treatment today and then plan for second treatment tomorrow. I have discussed with the family as well that patient may need a kidney biopsy if his renal function does not improve as this is a fairly severe acute kidney injury with previous creatinine at 1.5 on 06/17/2020. I will also order baseline serologies and we will have a Khalil catheter placed for accurate I's and O's. 2. Metabolic acidosis associated with renal failure, expect improvement with dialysis. I will hold off on starting sodium bicarb given his hypervolemia. 3. Hyperkalemia associated with acute kidney injury, renal failure. Expect improvement with dialysis. Avoid Kayexalate given his history of diarrhea. 4. Diarrhea, I will hold off on Renvela and continue to monitor. 5. 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 6. Hypervolemia, status post Lasix yesterday. Expect improvement post dialysis. We will plan for 1-2 L of ultrafiltration. PLAN: Consult Vascular Surgery for dialysis catheter placement today. Will plan for dialysis today and then again tomorrow and UF 1-2 L. Insert Khalil catheter. Avoid nephrotoxic agents. Repeat labs in a.m. and check urine eosinophiles and baseline serologies. If renal function does not improve, consider renal biopsy. MMODL / IJN: [id number] /
--- NOTE | 2020-09-28 13:19 | P.PN ---
Subjective Progress Note Date: 09/28/20 HISTORY OF PRESENT ILLNESS: This is a 80-year-old male with a past medical history significant for coronary artery disease with previous CABG, carotid stenosis with previous right en darterectomy, peripheral vascular disease with previous stenting to the lower extremities, hypertension, hyperlipidemia, DVT, diabetes mellitus, COPD, and chronic kidney disease. Patient follows in the office with Dr. Barajas. We have been asked to see the patient in consultation for CHF. Patient examined at the bedside. Patient presented to the hospital secondary to increasing shortness of breath and increasing lower extremity edema. Patient was found to be in acute renal failure with a creatinine of 7.59. The patient denies any chest pain or pressure. He does report shortness of breath this morning. It is noted that the patient underwent a biventricular ICD implantation in May 2020. No EKG completed on admission Chest xray evidence of minimal heart failure that is improved compared to old exam. Laboratory data: WBC 7.81. Hemoglobin 14.0. Platelet count 177. Sodium 135. Potassium 4.8. BUN 66. Creatinine 7.59. BNP 7460. Current home cardiac medications include Ranexa 500 blood grams daily, metoprolol tartrate 59 g twice a day, losartan 50 mg daily, Imdur 60 mg at night and 39 g in the morning, Lasix 20 g twice a day, Plavix 75 mg daily, Lipitor 20 mg daily and aspirin 81 mg daily Most recent echocardiogram obtained in April 2020 at the office revealed ejection fraction 30-35% [id number] mitral regurgitation. Mild tricuspid regurgitation. 09/28/2020 Patient examined at the bedside. Patient denies chest pain or pressure. He states his shortness of breath is improving. Patient's kidney function has worsened today. Vascular surgery has been consulted for hemodialysis catheter placement. Vital signs are stable. PHYSICAL EXAM: VITAL SIGNS: Reviewed. GENERAL: Well-developed in no acute distress. HEENT: Head is normocephalic. Pupils are equal, round. Sclerae anicteric. Mucous membranes of the mouth are moist. Neck supple. No JVD or thyromegaly LUNGS: Respirations even and unlabored. Lungs diminished bilaterally HEART: Regular rate and rhythm. S1 and S2 heard. ABDOMEN: Soft. Nondistended. Nontender. EXTREMITIES: Normal range of motion. No clubbing or cyanosis. Peripheral pulses intact. 2+ bilateral lower extremity edema NEUROLOGIC: Awake and alert. Oriented x 3. ASSESSMENT: Acute on chronic kidney disease Acute exacerbation of systolic heart failure, ejection fraction 3035% Coronary artery disease with previous CABG Known ischemic cardiomyopathy Carotid stenosis with previous right endarterectomy Peripheral vascular disease with previous stenting to the lower extremities Hypertension Hyperlipidemia DVT Diabetes mellitus COPD PLAN: Continue current cardiac medications Nephrology following for acute renal failure. Patient to begin hemodialysis Diuresis per nephrology Further recommendations pending patient course Nurse practitioner note has been reviewed by physician. Signing provider agrees with the documented findings, assessment, and plan of care. Objective - Vital Signs Vital signs: Vital Signs Temp 97.9 F 09/28/20 08:00 Pulse 78 09/28/20 08:00 Resp 16 09/28/20 08:00 BP 131/68 09/28/20 08:00 Pulse Ox 96 09/28/20 08:00 Intake & Output 09/27/20 09/28/20 09/28/20 18:59 06:59 18:59 Output Total 100 250 15 Balance -100 -250 -15 Output: Urine 100 250 15 Uretheral (Khalil) 15 Other: Voiding Method Toilet Toilet Indwelling Catheter # Voids 1 - Labs CBC & Chem 7: 09/27/20 07:35 09/28/20 02:44 Labs: Abnormal Lab Results - Last 24 Hours (Table) 09/27/20 09/27/20 09/28/20 Range/Units 17:00 21:04 02:44 Sodium 135 L (137-145) mmol/L Potassium 5.5 H (3.5-5.1) mmol/L Carbon Dioxide 16 L (22-30) mmol/L BUN 80 H (9-20) mg/dL Creatinine 8.54 H* (0.66-1.25) mg/dL Glucose 140 H (74-99) mg/dL POC Glucose (mg/dL) 100 H 216 H (75-99) mg/dL 09/28/20 Range/Units 11:43 Sodium (137-145) mmol/L Potassium (3.5-5.1) mmol/L Carbon Dioxide (22-30) mmol/L BUN (9-20) mg/dL Creatinine (0.66-1.25) mg/dL Glucose (74-99) mg/dL POC Glucose (mg/dL) 151 H (75-99) mg/dL Microbiology - Last 24 Hours (Table) 09/26/20 18:32 Urine Culture - Final Urine,Voided
[2020-09-28] MEDS ORDERED: SODIUM CHLORIDE 0.9% 250 ML IV ONE (13:35)
[2020-09-28] MEDS ORDERED: fentaNYL (PF) 50 MCG/ML 2 ML AMP IV ONE (13:47)
[2020-09-28] MEDS ORDERED: MIDAZOLAM 2 MG/2 ML VIAL IV ONE (13:48)
[2020-09-28] MEDS ORDERED: LIDOCAINE 1% INJ 10MG/ML (20 ML MDV) SQ ONE (13:49)
--- NOTE | 2020-09-28 13:53 | CONS ---
CONSULTATION This is a 80-year-old gentleman. The patient has been admitted with acute on chronic renal failure. Creatinine is 8.54, BUN is 80, potassium 5.5, sodium 135. I was consulted for placement of urgent dialysis catheter. PAST MEDICAL HISTORY: Includes type 2 diabetes, coronary artery disease, rheumatoid arthritis. SURGICAL HISTORY: Patient had a coronary artery bypass surgery, coronary artery stent placement and a right carotid endarterectomy and catheter surgery. SOCIAL HISTORY: He is a former smoker. PHYSICAL EXAMINATION: Chest: A few crackles at the lung bases. First and second sounds present. Abdomen is soft, nontender. Femorals are 1+ bilateral. PLAN: Placement of the dialysis catheter. Risks and complications discussed. MMODL / IJN: [id number] /
[2020-09-28] MEDS ORDERED: HEPARIN SODIUM 1,000 UN/ML (10ML VL) IV ONE (14:16)
--- NOTE | 2020-09-28 14:56 | XR ---
EXAMINATION TYPE: XR chest 1V portable DATE OF EXAM: 09/28/2020 COMPARISON: 09/26/2020 HISTORY: Line placement TECHNIQUE: FINDINGS: There is right-sided central venous catheter with the tip in the superior vena cava. There is left axillary pacemaker. There is mild pulmonary interstitial edema. Heart appears enlarged. There are sternal wires. IMPRESSION: There is some pulmonary interstitial edema that is increased compared to recent exam.
--- NOTE | 2020-09-28 16:28 | P.PN ---
Progress Note - Text Progress Note Date: 09/28/20 Chief Complaint: Tired History of presenting complaint: This is a pleasant 80-year-old patient who follows with Dr. Danny Domínguez. Chronic stable medical conditions include coronary artery with stent, COPD, diabetes, DVT, GERD, hyperlipidemia, rheumatoid arthritis, exposure to Agent [place] in [place], peripheral neuropathy, baseline uses a cane. Patient also has peripheral arterial disease being followed by Dr. Hernández. Patient presents with multiple symptoms including feeling floppy-tipped is a decrease appetite tired rundown. Increase Lopressor to edema. Patient was found to have creatinine of 7.5 and in the ER in the BUN of 66. Patient's creatinine in May of this year was 1.54. Patient been having blood draws and his family doctor and per the daughter the bedside patient's creatinine was increased 2 weeks ago. Patient has been becoming a bit more forgetful. No fever no chills. He also notices that food gets stuck in the chest performed: This is started off late. Patient's son and daughter the bedside. Patient initially in the ER did not want dialysis but is now open to the same. Patient is given IV Lasix. Not make any urine. Spoke to the patient and the family. Agreeable 4 hemodialysis. September 28: Sitting up in a chair. Khalil catheter placed. Minimal urine output. Shortness of breath. Tired. Son is present. Discussed with Dr. Tafoya from nephrology. Patient to be started on hemodialysis. Review of systems: Was done for constitutional, cardiovascular, GI, pulmonary. relevant finding as above Active Medications Acetaminophen (Acetaminophen Tab 325 Mg Tab) 650 mg PO Q6HR PRN PRN Reason: Fever and/ or Mild Pain Albuterol Sulfate (Albuterol Nebulized 2.5 Mg/3 Ml) 2.5 mg INHALATION Q6H PRN PRN Reason: Shortness Of Breath Albuterol/Ipratropium (Ipratropium-Albuterol 3 Ml Neb) 3 ml INHALATION RT-TID [facility] Last Admin: 09/28/20 11:20 Dose: Not Given Documented by: Aspirin (Aspirin 81 Mg) 81 mg PO DAILY [facility] Last Admin: 09/28/20 08:16 Dose: 81 mg Documented by: Atorvastatin Calcium (Atorvastatin 20 Mg Tab) 20 mg PO HS [facility] Last Admin: 09/27/20 21:57 Dose: 20 mg Documented by: Gabapentin (Gabapentin 100 Mg Cap) 100 mg PO [facility] Last Admin: 09/27/20 21:57 Dose: 100 mg Documented by: Insulin Aspart (Insulin Aspart (Novolog) 100 Unit/Ml Vial) 0 unit SQ [facility]; Protocol Last Admin: 09/28/20 11:47 Dose: Not Given Documented by: Insulin Detemir (Insulin Detemir (Levemir) 100 Unit/Ml Syr) 44 unit SQ [facility] Last Admin: 09/27/20 21:57 Dose: 44 unit Documented by: Isosorbide Mononitrate (Isosorbide Mononitrate Er 30 Mg Tab.Er.24h) 30 mg PO DAILY [facility] Last Admin: 09/28/20 08:17 Dose: 30 mg Documented by: Isosorbide Mononitrate (Isosorbide Mononitrate Er 60 Mg Tab.Er.24h) 60 mg PO [facility] Last Admin: 09/27/20 21:57 Dose: 60 mg Documented by: Metoprolol Tartrate (Metoprolol Tartrate 50 Mg Tab) 50 mg PO BID [facility] Last Admin: 09/28/20 08:16 Dose: 50 mg Documented by: Naloxone HCl (Naloxone 0.4 Mg/Ml 1 Ml Vial) 0.2 mg IV Q2M PRN PRN Reason: Opioid Reversal Nitroglycerin (Nitroglycerin Sl Tabs 0.4 Mg Tab) 0.4 mg SUBLINGUAL Q5M PRN PRN Reason: Chest Pain Ranolazine (Ranolazine 500 Mg Tab.Er.12h) 500 mg PO DAILY [facility] Last Admin: 09/28/20 08:17 Dose: 500 mg Documented by: Past medical history to include: Coronary artery disease, COPD, diabetes, DVT, GERD, hyperlipidemia, [place], rheumatoid arthritis, exposure to Agent [place] in [place], DVTs in the left leg after getting the low bicarbonate 96, colitis, bilateral peripheral neuropathy, coronary artery bypass in 2007, coronary artery with stent, peripheral interventions Social history: Lives alone. Does use a cane. No alcohol. 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 Patient smoked for about 50 years about half a pack a day stopped smoking in 2008 Family history: Cancer Physical examination: VITAL SIGNS: 87.5, 57, 20, 102/63, 100% room air GENERAL:, reclining in a chair, tired awake. EYES: Pupils equal. Conjunctiva palel. HEENT: External appearance of nose and ears normal, oral cavity grossly normal. NECK: JVD not raised; masses not palpable. HEART: First and second heart sounds are normal; edema present. LUNGS: Respiratory rate normal; decreased breath sounds. ABDOMEN: Soft, nontender, liver spleen not palpable, no masses palpable. PSYCH: Alert and oriented x3; mood and affect tired. INVESTIGATIONS, reviewed in the clinical context: September 28: Potassium 5.5 creatinine 8.5 for WBC 7.8 hemoglobin 14 platelets 177 potassium 5.4 bicarb 16 BUN 71 crit 7.6 phosphorus 7.6 Renal ultrasound: Negative Telemetric [personally reviewed by me]: Normal sinus rhythm. Nonspecific T-wave changes. Admission labs: Potassium 5.7 BUN 63 creatinine 7.13 UA positive for leukoesterase, WBC. His, some epithelial cells 6 Chest x-ray film personally reviewed by me-pulmonary edema, cardiomegaly, pacemaker Doppler ultrasound: Negative for DVT Previous labs: BUN 25, creatinine 1.54 in May 2020 Assessment and plan: -Acute kidney injury combination of prerenal and ATN, multifactorial. Underlying CK D. signs of uremia including slight confusion, fluid overload, edema: Worsening Awaiting hemodialysis -Acute uremic symptoms from advancing renal failure.: Slow to respond Pending hemodialysis -Diabetes mellitus type 2, chronically on insulin Levemir 38 units subcu daily at bedtime. Follow Accu-Cheks -Essential hypertension Continue Lopressor, nitrates- -Peripheral arterial disease with recent interventions Continue with aspirin and Lipitor -Diabetic peripheral neuropathy In the setting of renal failure will cut back on the dose of Neurontin. 100 mg daily at bedtime -Acute metabolic and uremic encephalopathy, including contribution from Neurontin. Dose of Neurontin is being cut back. Patient should do better after hemodialysis. -Chronic gait dysfunction baseline uses a cane -Hyperphosphatemia from renal failure Add PhosLo -Coronary artery disease with a primary seizure stent and bypass Continue with nitrates, aspirin, beta thierry -COPD in a previous smoker DuoNeb 3 times a day -Hyperkalemia secondary to renal failure: Slow to respond Renal diet. -Metabolic acidosis due to renal failure Sodium bicarbonate -Acute on chronic fluid overload from renal failure Will need hemodialysis -GERD Use Pepcid Dysphagia with food getting stuck in the lower esophagus. -We'll get a modified. Tuesday. -GI services not available in the hospital Pending hemodialysis catheter placement and followed by hemodialysis today. Discussed with the patient and son. Discussed the Dr. Tafoya. Schedule modified barium swallow
[2020-09-28] MEDS ORDERED: MIDODRINE 5 MG TAB PO PRN (16:47)
[2020-09-28] MEDS: ACETAMINOPHEN TAB 325 MG TAB PO PRN (16:47)
[2020-09-28 17:05] LABS: Glucose,Whole Blood 150 mg/dL (75-99)
[2020-09-28 18:16] LABS: Hepatitis B Surface AB- Quant <3.5 mIU/mL; Hepatitis B Surface Antibody Non-Reactive (Non-Reactive); Hepatitis B Surface Antigen Non-Reactive (Non-Reactive); Hepatitis C IgG Antibody Non-Reactive (Non-Reactive)
--- NOTE | 2020-09-28 18:27 | PCN ---
PROCEDURE NOTE PREOP DIAGNOSIS: Acute on chronic renal failure. POSTOP DIAGNOSIS: Acute on chronic renal failure. PROCEDURE PERFORMED: Placement of ultrasound-guided 23 cm dialysis catheter placed right IJ approach. SEDATION TIME: 30 minutes. PROCEDURE DETAILS: This patient was brought to the [facility] laboratory. Right side of the neck and chest was prepped, drapes applied in the usual sterile manner. This patient had a right carotid endarterectomy done in the past and there is a pacemaker on the left side. Ultrasound- guided introducer right jugular vein. Micropuncture guidewire was passed and 4-Irish dilator advanced on top of the guidewire. Then we created a tunnel. Through the tunnel, we brought 23 cm dialysis catheter. Guidewire was parked in the inferior vena cava and dilators were advanced and sheath was advanced on top of the guidewire under fluoroscopy control. 23 cm dialysis catheter placed. Sheath was removed. Pressures were held and incision was closed with Vicryl and nylon. Dressing applied. Patient tolerated the procedure well. MMODL / IJN: [id number] /
[2020-09-28 20:33] LABS: Glucose,Whole Blood 192 mg/dL (75-99)
[2020-09-28] MEDS ORDERED: INSULIN DETEMIR (LEVEMIR) 100 UNIT/ML SYR SQ SCH (21:00)
[2020-09-28] MEDS: ISOSORBIDE MONONITRATE ER 60 MG TAB.ER.24H PO SCH (21:28)
[2020-09-28] MEDS: GABAPENTIN 100 MG CAP PO SCH (21:28)
[2020-09-28] MEDS: ATORVASTATIN 20 MG TAB PO SCH (21:28)
[2020-09-29 06:56] LABS: Glucose,Whole Blood 80 mg/dL (75-99)
[2020-09-29] MEDS: INSULIN ASPART (NovoLOG) 100 UNIT/ML VIAL SQ SCH ×4 (07:29→21:41)
[2020-09-29] MEDS: IPRATROPIUM-ALBUTEROL 3 ML NEB INHALATION SCH ×3 (08:13→21:00)
[2020-09-29] MEDS: ASPIRIN 81 MG PO SCH (09:38)
[2020-09-29] MEDS: RANOLAZINE 500 MG TAB.ER.12H PO SCH (09:39)
--- NOTE | 2020-09-29 10:50 | FL ---
EXAMINATION TYPE: FL barium swallow DATE OF EXAM: 09/29/2020 COMPARISON: None HISTORY: Dysphagia, food getting stuck in lower chest TECHNIQUE: Single contrast technique was utilized to evaluate the esophagus. Thin and thick barium wa s utilized. Tamm is limited due to the patient's physical condition at the time of this exam. FINDINGS: Esophagus dilates to normal caliber and has normal contour to the gastroesophageal junction . Gastroesophageal junction opens without persistent stenosis. Multiple tertiary contractions are evident during the examination. The horizontal drinking position s econdary contractions are evident. No reflux was elicited this exam. IMPRESSION: 1. Presbyesophagus. 2. No persistent stenosis identified.
[2020-09-29 11:20] LABS: Glucose,Whole Blood 154 mg/dL (75-99)
[2020-09-29 12:41] LABS: Anti-DNA, DS unit <1.0 IU/mL; DNA Double-Stranded NEGATIVE (NEGATIVE)
--- NOTE | 2020-09-29 12:42 | P.PN ---
Subjective This is a 80-year-old male with a past medical history significant for coronary artery disease with previous CABG, carotid stenosis with previous right endarterectomy, peripheral vascular disease with previous stenting to the lower extremities, hypertension, hyperlipidemia, DVT, diabetes mellitus, COPD, chronic kidney disease, ischemic cardiomyopathy s/p biventricular ICD implantation in May 2020. Patient follows in the office with Dr. Barajas. We have been asked to see the patient in consultation for CHF. Patient presented to the hospital se condary to increasing shortness of breath, increasing lower extremity edema, fatigued, decreased appetite, Most recent echocardiogram obtained in April 2020 at the office revealed ejection fraction 30-35% [id number] mitral regurgitation. Mild tricuspid regurgitation. Patient was found to be in acute renal failure with a creatinine of 7.59. Vascular surgery consulted and patient underwent hemodialysis catheter placement on 09/28/20 and has had 1 treatment of hemodialysis 09/28 with 2L removed. Patient seen and examined at bedside. No acute distress. He continues to have some shortness of breath with activity and diarrhea. He also complains of lightheadedness and dizziness when he looks up. He also is noticing some tingling sensation down his left arm. Blood pressure 104/57, heart rate 66, afebrile, maintaining oxygen saturations 95% on room air. PHYSICAL EXAM: VITAL SIGNS: Reviewed. GENERAL: Well-developed in no acute distress. HEENT: Head is normocephalic. Neck supple. No JVD. Right IJ HD catheter present LUNGS: Respirations even and unlabored. Lungs diminished bilaterally HEART: Regular rate and rhythm. S1 and S2 heard. ABDOMEN: Soft. Nondistended. Nontender. EXTREMITIES: Normal range of motion. No clubbing or cyanosis. Peripheral pulses intact. 2+ bilateral lower extremity edema NEUROLOGIC: Awake and alert. Oriented x 3. ASSESSMENT: Acute on chronic kidney disease Acute exacerbation of systolic heart failure, ejection fraction 30-35% Coronary artery disease with previous CABG Known ischemic cardiomyopathy Carotid stenosis with previous right endarterectomy Peripheral vascular disease with previous stenting to the lower extremities Hypertension Hyperlipidemia DVT Diabetes mellitus COPD Diarrhea PLAN: Continue current cardiac medications aspirin 81mg daily, statin, metoprolol tartrate, ranexa Nephrology following for acute renal failure. Plan for patient to under hemo dialysis treatment today. Diuresis per nephrology Further recommendations pending patient course Nurse practitioner note has been reviewed by physician. Signing provider agrees with the documented findings, assessment, and plan of care. Objective - Vital Signs Vital signs: Vital Signs Temp 97.6 F 09/29/20 08:00 Pulse 66 09/29/20 08:00 Resp 18 09/29/20 08:00 BP 104/57 09/29/20 08:00 Pulse Ox 95 09/29/20 08:00 Intake & Output 09/28/20 09/29/20 09/29/20 18:59 06:59 18:59 Intake Total 50 514 Output Total 130 2500 Balance - Intake: IV 50 Oral 214 Hemodialysis 300 Output: Urine 130 200 Uretheral (Khalil) 15 Hemodialysis 2300 Other: Voiding Method Indwelling Catheter Indwelling Catheter Indwelling Catheter - Labs CBC & Chem 7: 09/27/20 07:35 09/28/20 02:44 Labs: Abnormal Lab Results - Last 24 Hours (Table) 09/28/20 09/28/20 09/28/20 Range/Units 11:43 17:03 20:30 POC Glucose (mg/dL) 151 H 150 H 192 H (75-99) mg/dL
--- NOTE | 2020-09-29 15:24 | PN ---
PROGRESS NOTE Patient is seen for followup for acute kidney injury with symptoms of uremia. Patient was started on dialysis yesterday. All his serologies are currently negative. He has an indwelling Khalil catheter. 24 hour urine output noted to be significantly low at only about 350 mL. The patient had dialysis yesterday and we had about 2.3 L of fluid removed. PHYSICAL EXAMINATION: On examination today, blood pressure is 129/72, heart rate 58 per minute. He is afebrile. Examination of the heart S1, S2. Bilateral breath sounds are heard. Abdomen: Soft, nontender, obese. Examination of lower extremities shows edema 1+ bilaterally. 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 LABS: Not available from today. ASSESSMENT: 1. Acute kidney injury, possibly acute tubular necrosis. All serologies negative for underlying GN. The patient will need a kidney biopsy due to the significant increase in creatinine from 1.5-7.1 in 4 months' time. No nephrotoxic agents on board. Urine for eosinophiles is ordered. The patient will be dialyzed again today, which will be his second treatment. 2. Volume overload status post 2.3 L of ultrafiltration yesterday. I will add IV Lasix to help improve urine output. 3. Chronic kidney disease. Previous creatinine about 1.5 mg/dL, mostly associated with nephrosclerosis. 4. Hyperkalemia associated with acute kidney injury expect improvement post dialysis. 5. Diarrhea seems to have improved still present. PLAN: Repeat hemodialysis today. Check urine for eosinophiles. UF goal 1-2 L as tolerated. Continue off Renvela. We will recheck phosphorus tomorrow. MMODL / IJN: [id number] /
[2020-09-29] MEDS: METOPROLOL TARTRATE 50 MG TAB PO SCH ×2 (15:33→20:26)
--- NOTE | 2020-09-29 15:47 | IR ---
EXAMINATION TYPE: IR cvc insert central tunneled DATE OF EXAM: 09/28/2020 COMPARISON: NONE HISTORY: Fluoroscopy time. Fluoroscopy was provided to the referring clinician.
[2020-09-29 16:18] LABS: Glucose,Whole Blood 174 mg/dL (75-99)
[2020-09-29] MEDS: ISOSORBIDE MONONITRATE ER 30 MG TAB.ER.24H PO SCH (18:36)
--- NOTE | 2020-09-29 19:33 | P.PN ---
Progress Note - Text Progress Note Date: 09/29/20 Chief Complaint: Tired History of presenting complaint: This is a pleasant 80-year-old patient who follows with Dr. Danny Domínguez. Chronic stable medical conditions include coronary artery with stent, COPD, diabetes, DVT, GERD, hyperlipidemia, rheumatoid arthritis, exposure to [place] in [place], peripheral neuropathy, baseline uses a cane. Patient also has peripheral arterial disease being followed by Dr. Hernández. Patient presents with multiple symptoms including feeling floppy-tipped is a decrease appetite tired rundown. Increase Lopressor to edema. Patient was found to have creatinine of 7.5 and in the ER in the BUN of 66. Patient's creatinine in May of this year was 1.54. Patient been having blood draws and his family doctor and per the daughter the bedside patient's creatinine was increased 2 weeks ago. Patient has been becoming a bit more forgetful. No fever no chills. He also notices that food gets stuck in the chest performed: This is started off late. Patient's son and daughter the bedside. Patient initially in the ER did not want dialysis but is now open to the same. Patient is given IV Lasix. Not make any urine. Spoke to the patient and the family. Agreeable 4 hemodialysis. September 28: Sitting up in a chair. Khalil catheter placed. Minimal urine output. Shortness of breath. Tired. Son is present. Discussed with Dr. Tafoya from nephrology. Patient to be started on hemodialysis. September 29: Hemodialysis catheter placed in the right IJ yesterday by Dr. Carey. Did get dialyzed yesterday. Sitting up in a chair. Khalil catheter. Decreased shortness of breath decrease edema. Due for hemodialysis today. Barium swallow did show presbyesophagus. Results discussed with the patient. Review of systems: Was done for constitutional, cardiovascular, GI, pulmonary. relevant finding as above Active Medications Acetaminophen (Acetaminophen Tab 325 Mg Tab) 650 mg PO Q6HR PRN PRN Reason: Fever and/ or Mild Pain Last Admin: 09/28/20 16:47 Dose: 650 mg Documented by: Albuterol Sulfate (Albuterol Nebulized 2.5 Mg/3 Ml) 2.5 mg INHALATION Q6H PRN PRN Reason: Shortness Of Breath Albuterol/Ipratropium (Ipratropium-Albuterol 3 Ml Neb) 3 ml INHALATION RT-TID [facility] Last Admin: 09/29/20 12:04 Dose: Not Given Documented by: Aspirin (Aspirin 81 Mg) 81 mg PO DAILY [facility] Last Admin: 09/29/20 09:38 Dose: 81 mg Documented by: Atorvastatin Calcium (Atorvastatin 20 Mg Tab) 20 mg PO [facility] Last Admin: 09/28/20 21:28 Dose: 20 mg Documented by: Gabapentin (Gabapentin 100 Mg Cap) 100 mg PO [facility] Last Admin: 09/28/20 21:28 Dose: 100 mg Documented by: Insulin Aspart (Insulin Aspart (Novolog) 100 Unit/Ml Vial) 0 unit SQ [facility]; Protocol Last Admin: 09/29/20 17:11 Dose: 2 unit Documented by: Insulin Detemir (Insulin Detemir (Levemir) 100 Unit/Ml Syr) 38 unit SQ [facility] Last Admin: 09/28/20 21:30 Dose: 38 unit Documented by: Isosorbide Mononitrate (Isosorbide Mononitrate Er 30 Mg Tab.Er.24h) 30 mg PO DAILY [facility] Last Admin: 09/29/20 18:36 Dose: Not Given Documented by: Isosorbide Mononitrate (Isosorbide Mononitrate Er 60 Mg Tab.Er.24h) 60 mg PO [facility] Last Admin: 09/28/20 21:28 Dose: 60 mg Documented by: Metoprolol Tartrate (Metoprolol Tartrate 50 Mg Tab) 50 mg PO BID [facility] Last Admin: 09/29/20 15:33 Dose: Not Given Documented by: Midodrine (Midodrine 5 Mg Tab) 10 mg PO AC-TID PRN PRN Reason: Blood Pressure - Low Last Admin: 09/28/20 17:04 Dose: 10 mg Documented by: Naloxone HCl (Naloxone 0.4 Mg/Ml 1 Ml Vial) 0.2 mg IV Q2M PRN PRN Reason: Opioid Reversal Nitroglycerin (Nitroglycerin Sl Tabs 0.4 Mg Tab) 0.4 mg SUBLINGUAL Q5M PRN PRN Reason: Chest Pain Ranolazine (Ranolazine 500 Mg Tab.Er.12h) 500 mg PO DAILY [facility] Last Admin: 09/29/20 09:39 Dose: 500 mg Documented by: Past medical history to include: Coronary artery disease, COPD, diabetes, DVT, GERD, hyperlipidemia, [place], rheumatoid arthritis, exposure to [place] in [place], DVTs in the left leg after getting the low bicarbonate 96, colitis, bilateral peripheral neuropathy, coronary artery bypass in 2007, coronary artery with stent, peripheral interventions Social history: Lives alone. Does use a cane. No alcohol. 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 Patient smoked for about 50 years about half a pack a day stopped smoking in 2008 Family history: Cancer Physical examination: VITAL SIGNS: 97.6, 73, 18, 122/55, 98% room air GENERAL:, Up in a chair, tired awake. EYES: Pupils equal. Conjunctiva palel. HEENT: External appearance of nose and ears normal, oral cavity grossly normal. NECK: JVD not raised; masses not palpable. HEART: First and second heart sounds are normal; decreasing edema LUNGS: Respiratory rate normal; decreased breath sounds. ABDOMEN: Soft, nontender, liver spleen not palpable, no masses palpable. Khalil catheter PSYCH: Alert and oriented x3; mood and affect tired. INVESTIGATIONS, reviewed in the clinical context: Barium swallow: Breasts by esophagus September 28: Potassium 5.5 creatinine 8.5 for WBC 7.8 hemoglobin 14 platelets 177 potassium 5.4 bicarb 16 BUN 71 crit 7.6 phosphorus 7.6 Renal ultrasound: Negative Telemetric [personally reviewed by me]: Normal sinus rhythm. Nonspecific T-wave changes. Admission labs: Potassium 5.7 BUN 63 creatinine 7.13 UA positive for leukoesterase, WBC. His, some epithelial cells 6 Chest x-ray film personally reviewed by me-pulmonary edema, cardiomegaly, pacema ker Doppler ultrasound: Negative for DVT Previous labs: BUN 25, creatinine 1.54 in May 2020 Assessment and plan: -Acute kidney injury combination of prerenal and ATN, multifactorial. Underlying CK D. signs of uremia including slight confusion, fluid overload, edema: Worsening Awaiting hemodialysis -Acute uremic symptoms from advancing renal failure.: Slow to respond Started hemodialysis on September 28 -Diabetes mellitus type 2, chronically on insulin Levemir 38 units subcu daily at bedtime. Follow Accu-Cheks -Essential hypertension Continue Lopressor, nitrates- -Peripheral arterial disease with recent interventions Continue with aspirin and Lipitor -Diabetic peripheral neuropathy In the setting of renal failure will cut back on the dose of Neurontin. 100 mg daily at bedtime -Acute metabolic and uremic encephalopathy, including contribution from Neurontin.: Slow to respond Dose of Neurontin is being cut back. Patient should do better after hemodialysis. -Chronic gait dysfunction baseline uses a cane -Hyperphosphatemia from renal failure PhosLo -Coronary artery disease with a primary seizure stent and bypass Continue with nitrates, aspirin, beta thierry -COPD in a previous smoker DuoNeb 3 times a day -Hyperkalemia secondary to renal failure: Slow to respond Renal diet. Hemodialysis -Metabolic acidosis due to renal failure Sodium bicarbonate -Acute on chronic fluid overload from renal failure Improvement with hemodialysis -GERD Use Pepcid -Presbyesophagus coming dysphagia Discussed with the patient to have soft food and chew his food well. Hemodialysis today. Results of barium swallow discussed with the patient. Other medications to continue. Repeat labs tomorrow. Decrease Levemir to 30 units. Add Humalog 6 units with meals.
[2020-09-29] MEDS: GABAPENTIN 100 MG CAP PO SCH (20:26)
[2020-09-29] MEDS: ISOSORBIDE MONONITRATE ER 60 MG TAB.ER.24H PO SCH (20:26)
[2020-09-29] MEDS: ATORVASTATIN 20 MG TAB PO SCH (20:26)
[2020-09-29 20:56] LABS: Glucose,Whole Blood 238 mg/dL (75-99)
[2020-09-29] MEDS ORDERED: INSULIN DETEMIR (LEVEMIR) 100 UNIT/ML SYR SQ SCH (21:00)
[2020-09-30 06:46] LABS: Basophils % (A) 0 %; Eosinophils # (A) 0.4 k/uL (0-0.7); Eosinophils % (A) 4 %; HCT 37.5 % (39.0-53.0); HGB 12.2 gm/dL (13.0-17.5); Lymphocytes # (A) 1.6 k/uL (1.0-4.8); Lymphocytes % (A) 19 %; MCH 29.2 pg (25.0-35.0); MCHC 32.6 g/dL (31.0-37.0); MCV 89.7 fL (80.0-100.0); Mean Platelet Volume 8.8; Monocytes # (A) 0.5 k/uL (0-1.0); Monocytes % (A) 6 %; Neutrophils # (A) 5.9 k/uL (1.3-7.7); Neutrophils % (A) 69 %; Platelet Count 145 k/uL (150-450); RBC 4.19 m/uL (4.30-5.90); RDW 15.7 % (11.5-15.5); WBC 8.6 k/uL (3.8-10.6)
[2020-09-30 06:52] LABS: Glucose,Whole Blood 76 mg/dL (75-99)
[2020-09-30] MEDS: INSULIN ASPART (NovoLOG) 100 UNIT/ML VIAL SQ SCH ×6 (07:07→20:57)
[2020-09-30 07:15] LABS: African American GFR (CKD) 9 (>60 ml/min/1.73 sqM); Anion Gap 11 mmol/L; Blood Urea Nitrogen 46 mg/dL (9-20); Calcium 8.3 mg/dL (8.4-10.2); Carbon Dioxide 24 mmol/L (22-30); Chloride 101 mmol/L (98-107); Glucose 69 mg/dL (74-99); Non-African American GFR(CKD) 8 (>60 ml/min/1.73 sqM); Potassium 3.9 mmol/L (3.5-5.1); Sodium 136 mmol/L (137-145)
[2020-09-30] MEDS ORDERED: INSULIN ASPART (NovoLOG) 100 UNIT/ML VIAL SQ SCH (07:30)
[2020-09-30] MEDS: IPRATROPIUM-ALBUTEROL 3 ML NEB INHALATION SCH ×3 (07:46→21:53)
[2020-09-30] MEDS: RANOLAZINE 500 MG TAB.ER.12H PO SCH (09:56)
[2020-09-30] MEDS: ASPIRIN 81 MG PO SCH (09:56)
[2020-09-30] MEDS: FUROSEMIDE 10 MG/ML 10 ML VIAL IV SCH ×2 (10:02→20:59)
[2020-09-30] MEDS: ISOSORBIDE MONONITRATE ER 30 MG TAB.ER.24H PO SCH (10:16)
[2020-09-30] MEDS: METOPROLOL TARTRATE 50 MG TAB PO SCH ×2 (10:16→21:00)
[2020-09-30 11:44] LABS: Glucose,Whole Blood 206 mg/dL (75-99)
--- NOTE | 2020-09-30 14:07 | P.PN ---
Subjective This is a 80-year-old male with a past medical history significant for coronary artery disease with previous CABG, carotid stenosis with previous right endarterectomy, peripheral vascular disease with previous stenting to the lower extremities, hypertension, hyperlipidemia, DVT, diabetes mellitus, COPD, chronic kidney disease, ischemic cardiomyopathy s/p biventricular ICD implantation in May 2020. Patient follows in the office with Dr. Barajas. We have been asked to see the patient in consultation for CHF. Patient presented to the hospital se condary to increasing shortness of breath, increasing lower extremity edema, fatigued, decreased appetite, Most recent echocardiogram obtained in April 2020 at the office revealed ejection fraction 30-35% [id number] mitral regurgitation. Mild tricuspid regurgitation. Patient was found to be in acute renal failure with a creatinine of 7.59. Vascular surgery consulted and patient underwent hemodialysis catheter placement on 09/28/20. Patient underwent first dialysis treatment 09/28 with 2L removed. Patient seen and examined at bedside. Patient seen at the bedside chair. No acute distress. He states his breathing has improved. Patient is hemodynamically stable. Patient underwent hemodialysis yesterday with 1.5L removed. He denies chest pain or shortness of breath. He continues to have some lightheadedness and dizziness when he looks up. He woke up this morning with some mild neck pain. Barium swallow resulted with presbyesophagus. Blood pressure 130/74, heart rate 86, afebrile, maintaining oxygen saturations on room air. Patient currently maintained on atorvastatin 20 mg nightly, Lasix 60 mg twice a day per nephrology, Imdur 30 mg daily, metoprolol tartrate 50 mg twice a day, Ranexa 500 mg daily PHYSICAL EXAM: VITAL SIGNS: Reviewed. GENERAL: Well-developed in no acute distress. HEENT: Head is normocephalic. Neck supple. No JVD. Right IJ HD catheter present LUNGS: Respirations even and unlabored. Lungs diminished bilaterally HEART: Regular rate and rhythm. S1 and S2 heard. ABDOMEN: Soft. Nondistended. Nontender. EXTREMITIES: Normal range of motion. No clubbing or cyanosis. Peripheral pulses intact. 1+ bilateral lower extremity edema NEUROLOGIC: Awake and alert. Oriented x 3. ASSESSMENT: Acute on chronic kidney disease Acute exacerbation of systolic heart failure, ejection fraction 30-35% Coronary artery disease with previous CABG Known ischemic cardiomyopathy Carotid stenosis with previous right endarterectomy Peripheral vascular disease with previous stenting to the lower extremities Hypertension Hyperlipidemia DVT Diabetes mellitus COPD Diarrhea PLAN: Continue current cardiac medications Nephrology following for acute renal failure and hemodialysis Diuresis per nephrology We will follow the patient as needed. Please reconsult if needed. Patient to follow up outpatient with Dr. Barajas. Nurse practitioner note has been reviewed by physician. Signing provider agrees with the documented findings, assessment, and plan of care. Objective - Vital Signs Vital signs: Vital Signs Temp 97.2 F L 09/30/20 08:00 Pulse 86 09/30/20 09:53 Resp 16 09/30/20 08:00 BP 130/74 09/30/20 09:53 Pulse Ox 92 L 09/30/20 08:00 Intake & Output 09/29/20 09/30/20 09/30/20 18:59 06:59 18:59 Output Total 1600 100 100 Balance -1600 -100 -100 Output: Urine 100 100 100 Uretheral (Khalil) 100 100 Hemodialysis 1500 Other: Voiding Method Indwelling Catheter Indwelling Catheter Indwelling Catheter - Labs CBC & Chem 7: 09/30/20 06:16 09/30/20 06:16 Labs: Abnormal Lab Results - Last 24 Hours (Table) 09/29/20 09/29/20 09/29/20 Range/Units 11:19 16:17 20:55 RBC (4.30-5.90) m/uL Hgb (13.0-17.5) gm/dL Hct (39.0-53.0) % RDW (11.5-15.5) % Plt Count (150-450) k/uL Sodium (137-145) mmol/L BUN (9-20) mg/dL Creatinine (0.66-1.25) mg/dL Glucose (74-99) mg/dL POC Glucose (mg/dL) 154 H 174 H 238 H (75-99) mg/dL Calcium (8.4-10.2) mg/dL 09/30/20 09/30/20 Range/Units 06:16 06:16 RBC 4.19 L (4.30-5.90) m/uL Hgb 12.2 L (13.0-17.5) gm/dL Hct 37.5 L (39.0-53.0) % RDW 15.7 H (11.5-15.5) % Plt Count 145 L (150-450) k/uL Sodium 136 L (137-145) mmol/L BUN 46 H (9-20) mg/dL Creatinine 6.43 H (0.66-1.25) mg/dL Glucose 69 L (74-99) mg/dL POC Glucose (mg/dL) (75-99) mg/dL Calcium 8.3 L (8.4-10.2) mg/dL
[2020-09-30 14:55] LABS: C-ANCA <1:20 Titer (<1:20)
[2020-09-30 16:38] LABS: Glucose,Whole Blood 130 mg/dL (75-99)
--- NOTE | 2020-09-30 19:21 | PN ---
PROGRESS NOTE Patient is seen for followup for acute kidney injury. The patient has had two treatments of hemodialysis. This morning he states he is feeling better. We had about 1.5 L of ultrafiltration yesterday and prior to that 2.3 L. Shortness of breath has improved. The patient's blood pressure remains on the lower side and his appetite has improved as well. PHYSICAL EXAMINATION: On examination today, blood pressure was 90/46 heart rate 68 per minute. Repeat blood pressure 130/74. Examination of the heart S1, S2. Examination of the lungs, bilateral breath sounds are heard. Abdomen is soft, nontender. Examination of lower extremities shows edema 1+ bilaterally. FRAUD MANAGER exam grossly intact. LAB: Show hemoglobin 12.2, sodium 136, potassium 3.9, BUN 46, creatinine 6.43. Urine output not accurately charted. ASSESSMENT: 1. Acute kidney injury, acute tubular necrosis versus any other underlying glomerulonephritis. Serologies were ordered which are all negative thus far. Patient is noted to have 1+ protein and trace blood in his urine. I have discussed kidney biopsy options with the daughter and the patient and given the fact that the patient remains hemodialysis dependent we will proceed with kidney biopsy. However, the patient did get his aspirin today. Therefore, he will need to be off aspirin for 7 days prior to the biopsy. This can also be done as outpatient. 2. Uremia, currently improved. 3. Hyperkalemia associated with acute kidney injury, improved post dialysis. 4. Volume overload status post about 4 L of ultrafiltration over the last couple of days. I will add IV Lasix and we will plan for dialysis tomorrow. I will hold off on a treatment for today. 5. Hypotension. Blood pressure is on the lower side. Hold this morning dose of metoprolol and follow up on blood pressure later on today. PLAN: Add IV Lasix. We will plan for dialysis tomorrow. Hold aspirin as we will plan for a kidney biopsy in about one week's time. MMODL / IJN: [id number] /
--- NOTE | 2020-09-30 20:02 | P.PN ---
Progress Note - Text Progress Note Date: 09/30/20 Chief Complaint: Tired History of presenting complaint: This is a pleasant 80-year-old patient who follows with Dr. Danny Domínguez. Chronic stable medical conditions include coronary artery with stent, COPD, diabetes, DVT, GERD, hyperlipidemia, rheumatoid arthritis, exposure to Agent [place] in [place], peripheral neuropathy, baseline uses a cane. Patient also has peripheral arterial disease being followed by Dr. Hernández. Patient presents with multiple symptoms including feeling floppy-tipped is a decrease appetite tired rundown. Increase Lopressor to edema. Patient was found to have creatinine of 7.5 and in the ER in the BUN of 66. Patient's creatinine in May of this year was 1.54. Patient been having blood draws and his family doctor and per the daughter the bedside patient's creatinine was increased 2 weeks ago. Patient has been becoming a bit more forgetful. No fever no chills. He also notices that food gets stuck in the chest performed: This is started off late. Patient's son and daughter the bedside. Patient initially in the ER did not want dialysis but is now open to the same. Patient is given IV Lasix. Not make any urine. Spoke to the patient and the family. Agreeable 4 hemodialysis. September 28: Sitting up in a chair. Khalil catheter placed. Minimal urine output. Shortness of breath. Tired. Son is present. Discussed with Dr. Tafoya from nephrology. Patient to be started on hemodialysis. September 29: Hemodialysis catheter placed in the right IJ yesterday by Dr. Carey. Did get dialyzed yesterday. Sitting up in a chair. Khalil catheter. Decreased shortness of breath decrease edema. Due for hemodialysis today. Barium swallow did show presbyesophagus. Results discussed with the patient. September 30: Sitting up in a chair. A bit tired. Seen by nephrology. For kidney biopsy in a week. Aspirin held. No hemodialysis today. Decrease edema. Review of systems: Was done for constitutional, cardiovascular, GI, pulmonary. relevant finding as above Active Medications Acetaminophen (Acetaminophen Tab 325 Mg Tab) 650 mg PO Q6HR PRN PRN Reason: Fever and/ or Mild Pain Last Admin: 09/28/20 16:47 Dose: 650 mg Documented by: Albuterol Sulfate (Albuterol Nebulized 2.5 Mg/3 Ml) 2.5 mg INHALATION Q6H PRN PRN Reason: Shortness Of Breath Albuterol/Ipratropium (Ipratropium-Albuterol 3 Ml Neb) 3 ml INHALATION RT-TID [facility] Last Admin: 09/30/20 12:17 Dose: Not Given Documented by: Atorvastatin Calcium (Atorvastatin 20 Mg Tab) 20 mg PO [facility] Last Admin: 09/29/20 20:26 Dose: 20 mg Documented by: Furosemide (Furosemide 10 Mg/Ml 10 Ml Vial) 60 mg IV Q12HR [facility] Last Admin: 09/30/20 10:02 Dose: 60 mg Documented by: Gabapentin (Gabapentin 100 Mg Cap) 100 mg PO [facility] Last Admin: 09/29/20 20:26 Dose: 100 mg Documented by: Insulin Aspart (Insulin Aspart (Novolog) 100 Unit/Ml Vial) 0 unit SQ [facility]; Protocol Last Admin: 09/30/20 16:54 Dose: Not Given Documented by: Insulin Aspart (Insulin Aspart (Novolog) 100 Unit/Ml Vial) 4 unit SQ AC-TID [facility] Last Admin: 09/30/20 17:02 Dose: 4 unit Documented by: Insulin Detemir (Insulin Detemir (Levemir) 100 Unit/Ml Syr) 24 unit SQ [facility] Isosorbide Mononitrate (Isosorbide Mononitrate Er 30 Mg Tab.Er.24h) 30 mg PO DAILY [facility] Last Admin: 09/30/20 10:16 Dose: 30 mg Documented by: Isosorbide Mononitrate (Isosorbide Mononitrate Er 60 Mg Tab.Er.24h) 60 mg PO [facility] Last Admin: 09/29/20 20:26 Dose: 60 mg Documented by: Metoprolol Tartrate (Metoprolol Tartrate 50 Mg Tab) 50 mg PO BID [facility] Last Admin: 09/30/20 10:16 Dose: Not Given Documented by: Midodrine (Midodrine 5 Mg Tab) 10 mg PO AC-TID PRN PRN Reason: Blood Pressure - Low Last Admin: 09/28/20 17:04 Dose: 10 mg Documented by: Naloxone HCl (Naloxone 0.4 Mg/Ml 1 Ml Vial) 0.2 mg IV Q2M PRN PRN Reason: Opioid Reversal Nitroglycerin (Nitroglycerin Sl Tabs 0.4 Mg Tab) 0.4 mg SUBLINGUAL Q5M PRN PRN Reason: Chest Pain Ranolazine (Ranolazine 500 Mg Tab.Er.12h) 500 mg PO DAILY [facility] Last Admin: 09/30/20 09:56 Dose: 500 mg Documented by: Past medical history to include: Coronary artery disease, COPD, diabetes, DVT, GERD, hyperlipidemia, MS, rheumatoid arthritis, exposure to Agent [place] in [place], DVTs in the left leg after getting the low bicarbonate 96, colitis, bilateral peripheral neuropathy, coronary artery bypass in 2007, coronary artery with stent, peripheral interventions Social history: Lives alone. Does use a cane. No alcohol. 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 Patient smoked for about 50 years about half a pack a day stopped smoking in 2008 Family history: Cancer Physical examination: VITAL SIGNS: 98.1, 64, 18, 119/57, 96% room air GENERAL:, Up in a chair, tired awake. EYES: Pupils equal. Conjunctiva palel. HEENT: External appearance of nose and ears normal, oral cavity grossly normal. NECK: JVD not raised; masses not palpable. HEART: First and second heart sounds are normal; decrease edema LUNGS: Respiratory rate normal; decreased breath sounds. ABDOMEN: Soft, nontender, liver spleen not palpable, no masses palpable. Khalil catheter PSYCH: Alert and oriented x3; mood and affect tired. INVESTIGATIONS, reviewed in the clinical context: September 30: WBC 8.6 hemoglobin 12.2 platelets 145 potassium 3.9 creatinine 6.43 Barium swallow: Breasts by esophagus September 28: Potassium 5.5 creatinine 8.5 for WBC 7.8 hemoglobin 14 platelets 177 potassium 5.4 bicarb 16 BUN 71 crit 7.6 phosphorus 7.6 Renal ultrasound: Negative Telemetric [personally reviewed by me]: Normal sinus rhythm. Nonspecific T-wave changes. Admission labs: Potassium 5.7 BUN 63 creatinine 7.13 UA positive for leukoesterase, WBC. His, some epithelial cells 6 Chest x-ray film personally reviewed by me-pulmonary edema, cardiomegaly, pacemaker Doppler ultrasound: Negative for DVT Previous labs: BUN 25, creatinine 1.54 in May 2020 Assessment and plan: -Acute kidney injury combination of prerenal and ATN, multifactorial. Underlying CK D. signs of uremia including slight confusion, fluid overload, edema: Slow to respond Started on hemodialysis. Cause undetermined. Outpatient renal biopsy -Acute uremic symptoms from advancing renal failure.: Slow to respond Started hemodialysis on September 28 -Diabetes mellitus type 2, chronically on insulin, uncontrolled with hypoglycemia Decrease Levemir 24 units subcu daily at bedtime. Follow Accu-Cheks -Essential hypertension Continue Lopressor, nitrates- -Peripheral arterial disease with recent interventions Continue with aspirin [currently held] and Lipitor -Diabetic peripheral neuropathy In the setting of renal failure will cut back on the dose of Neurontin. 100 mg daily at bedtime -Acute metabolic and uremic encephalopathy, including contribution from Neurontin.: Slow to respond Dose of Neurontin is being cut back. Patient should do better after hemodialysis. -Chronic gait dysfunction baseline uses a cane -Hyperphosphatemia from renal failure PhosLo -Coronary artery disease with a previous stent and bypass Continue with nitrates, aspirin [currently held], beta thierry -COPD in a previous smoker DuoNeb 3 times a day -Hyperkalemia secondary to renal failure: Slow to respond Renal diet. Hemodialysis -Metabolic acidosis due to renal failure Sodium bicarbonate -Acute on chronic fluid overload from renal failure Improvement with hemodialysis -GERD Use Pepcid -Presbyesophagus coming dysphagia Discussed with the patient to have soft food and chew his food well. No hemodialysis today. Aspirin held for renal biopsy in about a week's time. Probably outpatient. Sugars running low. Cutback Levemir to 24 units subcu daily at bedtime and NovoLog to 4 units with meals. Discussed with patient.
[2020-09-30 20:40] LABS: Glucose,Whole Blood 159 mg/dL (75-99)
[2020-09-30] MEDS: GABAPENTIN 100 MG CAP PO SCH (20:59)
[2020-09-30] MEDS: ISOSORBIDE MONONITRATE ER 60 MG TAB.ER.24H PO SCH (20:59)
[2020-09-30] MEDS: ATORVASTATIN 20 MG TAB PO SCH (21:00)
[2020-09-30] MEDS: INSULIN DETEMIR (LEVEMIR) 100 UNIT/ML SYR SQ SCH (21:07)
[2020-10-01 06:59] LABS: Glucose,Whole Blood 105 mg/dL (75-99)
[2020-10-01] MEDS: INSULIN ASPART (NovoLOG) 100 UNIT/ML VIAL SQ SCH ×7 (07:03→20:19)
[2020-10-01] MEDS: IPRATROPIUM-ALBUTEROL 3 ML NEB INHALATION SCH ×3 (07:06→20:32)
[2020-10-01] MEDS: FUROSEMIDE 10 MG/ML 10 ML VIAL IV SCH ×2 (07:47→20:18)
[2020-10-01] MEDS: RANOLAZINE 500 MG TAB.ER.12H PO SCH (07:47)
[2020-10-01] MEDS: ISOSORBIDE MONONITRATE ER 30 MG TAB.ER.24H PO SCH (07:47)
[2020-10-01] MEDS: METOPROLOL TARTRATE 50 MG TAB PO SCH ×2 (07:49→20:18)
[2020-10-01 11:24] LABS: Glucose,Whole Blood 144 mg/dL (75-99)
--- NOTE | 2020-10-01 13:42 | PN ---
PROGRESS NOTE Patient is seen for followup for acute kidney injury. He has had increased urine output. Patient is currently doing slightly better. He denies any significant chest pains or shortness of breath. I see urine output documented at about 970 mL for 24 hours. He was started on IV Lasix. PHYSICAL EXAMINATION: On examination today, blood pressure 127/67, heart rate 66 per minute. He is afebrile. Examination of the heart S1, S2. Examination of the lungs, bilateral breath sounds are heard. Abdomen is soft, nontender. Examination of lower extremities shows improved edema. CALLIOPE PLAYER exam grossly intact. LAB: Labs are pending from today. Creatinine 6.4 yesterday. ASSESSMENT: 1. Acute kidney injury with possible recovery of kidney function, most likely ATN. Urine output has increased. I will arrange for dialysis treatment today and after that, we will try to hold off to assess his recovery of renal function. 2. Volume overload currently improved. 3. Hyperkalemia, now improved post dialysis. 4. Uremia currently improved symptomatically. 5. Hypertension. Blood pressure had been on the lower side. Metoprolol was held yesterday. PLAN: Hemodialysis today following which I will hold dialysis to assess for recovery of renal function. Aspirin is currently on hold in anticipation of possible kidney biopsy. MMODL / IJN: [id number] /
[2020-10-01 16:26] LABS: Glucose,Whole Blood 111 mg/dL (75-99)
[2020-10-01 20:14] LABS: Glucose,Whole Blood 179 mg/dL (75-99)
[2020-10-01] MEDS: ATORVASTATIN 20 MG TAB PO SCH (20:18)
[2020-10-01] MEDS: ISOSORBIDE MONONITRATE ER 60 MG TAB.ER.24H PO SCH (20:18)
[2020-10-01] MEDS: GABAPENTIN 100 MG CAP PO SCH (20:18)
[2020-10-01] MEDS: INSULIN DETEMIR (LEVEMIR) 100 UNIT/ML SYR SQ SCH (20:19)
--- NOTE | 2020-10-01 20:29 | P.PN ---
Progress Note - Text Progress Note Date: 10/01/20 Chief Complaint: Tired History of presenting complaint: This is a pleasant 80-year-old patient who follows with Dr. Danny Domínguez. Chronic stable medical conditions include coronary artery with stent, COPD, diabetes, DVT, GERD, hyperlipidemia, rheumatoid arthritis, exposure to Agent [place] in [place], peripheral neuropathy, baseline uses a cane. Patient also has peripheral arterial disease being followed by Dr. Hernández. Patient presents with multiple symptoms including feeling floppy-tipped is a decrease appetite tired rundown. Increase Lopressor to edema. Patient was found to have creatinine of 7.5 and in the ER in the BUN of 66. Patient's creatinine in May of this year was 1.54. Patient been having blood draws and his family doctor and per the daughter the bedside patient's creatinine was increased 2 weeks ago. Patient has been becoming a bit more forgetful. No fever no chills. He also notices that food gets stuck in the chest performed: This is started off late. Patient's son and daughter the bedside. Patient initially in the ER did not want dialysis but is now open to the same. Patient is given IV Lasix. Not make any urine. Spoke to the patient and the family. Agreeable 4 hemodialysis. September 28: Sitting up in a chair. Khalil catheter placed. Minimal urine output. Shortness of breath. Tired. Son is present. Discussed with Dr. Tafoya from nephrology. Patient to be started on hemodialysis. September 29: Hemodialysis catheter placed in the right IJ yesterday by Dr. Carey. Did get dialyzed yesterday. Sitting up in a chair. Khalil catheter. Decreased shortness of breath decrease edema. Due for hemodialysis today. Barium swallow did show presbyesophagus. Results discussed with the patient. September 30: Sitting up in a chair. A bit tired. Seen by nephrology. For kidney biopsy in a week. Aspirin held. No hemodialysis today. Decrease edema. October 01: Tired but feeling better. Making urine. For hemodialysis later today. Plan is then to see how patient does with urine output and then decide about long-term dialysis. Review of systems: Was done for constitutional, cardiovascular, GI, pulmonary. relevant finding as above Active Medications Acetaminophen (Acetaminophen Tab 325 Mg Tab) 650 mg PO Q6HR PRN PRN Reason: Fever and/ or Mild Pain Last Admin: 09/28/20 16:47 Dose: 650 mg Documented by: Albuterol Sulfate (Albuterol Nebulized 2.5 Mg/3 Ml) 2.5 mg INHALATION Q6H PRN PRN Reason: Shortness Of Breath Albuterol/Ipratropium (Ipratropium-Albuterol 3 Ml Neb) 3 ml INHALATION RT-TID [facility] Last Admin: 10/01/20 10:55 Dose: Not Given Documented by: Atorvastatin Calcium (Atorvastatin 20 Mg Tab) 20 mg PO [facility] Last Admin: 10/01/20 20:18 Dose: 20 mg Documented by: Furosemide (Furosemide 10 Mg/Ml 10 Ml Vial) 60 mg IV Q12HR [facility] Last Admin: 10/01/20 20:18 Dose: 60 mg Documented by: Gabapentin (Gabapentin 100 Mg Cap) 100 mg PO [facility] Last Admin: 10/01/20 20:18 Dose: 100 mg Documented by: Insulin Aspart (Insulin Aspart (Novolog) 100 Unit/Ml Vial) 0 unit SQ [facility]; Protocol Last Admin: 10/01/20 20:19 Dose: 2 unit Documented by: Insulin Aspart (Insulin Aspart (Novolog) 100 Unit/Ml Vial) 4 unit SQ AC-TID [facility] Last Admin: 10/01/20 16:26 Dose: Not Given Documented by: Insulin Detemir (Insulin Detemir (Levemir) 100 Unit/Ml Syr) 24 unit SQ [facility] Last Admin: 10/01/20 20:19 Dose: 24 unit Documented by: Isosorbide Mononitrate (Isosorbide Mononitrate Er 30 Mg Tab.Er.24h) 30 mg PO DAILY [facility] Last Admin: 10/01/20 07:47 Dose: 30 mg Documented by: Isosorbide Mononitrate (Isosorbide Mononitrate Er 60 Mg Tab.Er.24h) 60 mg PO [facility] Last Admin: 10/01/20 20:18 Dose: 60 mg Documented by: Metoprolol Tartrate (Metoprolol Tartrate 50 Mg Tab) 50 mg PO BID [facility] Last Admin: 10/01/20 20:18 Dose: 50 mg Documented by: Midodrine (Midodrine 5 Mg Tab) 10 mg PO AC-TID PRN PRN Reason: Blood Pressure - Low Last Admin: 09/28/20 17:04 Dose: 10 mg Documented by: Naloxone HCl (Naloxone 0.4 Mg/Ml 1 Ml Vial) 0.2 mg IV Q2M PRN PRN Reason: Opioid Reversal Nitroglycerin (Nitroglycerin Sl Tabs 0.4 Mg Tab) 0.4 mg SUBLINGUAL Q5M PRN PRN Reason: Chest Pain Ranolazine (Ranolazine 500 Mg Tab.Er.12h) 500 mg PO DAILY [facility] Last Admin: 10/01/20 07:47 Dose: 500 mg Documented by: Past medical history to include: Coronary artery disease, COPD, diabetes, DVT, GERD, hyperlipidemia, [place], rheumatoid arthritis, exposure to Agent [place] in [place], DVTs in the left leg after getting the low bicarbonate 96, colitis, bilateral peripheral neuropathy, coronary artery bypass in 2007, coronary artery with stent, peripheral interventions Social history: Lives alone. Does use a cane. No alcohol. 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 Patient smoked for about 50 years about half a pack a day stopped smoking in 2008 Family history: Cancer Physical examination: VITAL SIGNS: 97.7, 75, 18, 100/53, 97% room air GENERAL:, Up in a chair, tired awake. EYES: Pupils equal. Conjunctiva palel. HEENT: External appearance of nose and ears normal, oral cavity grossly normal. NECK: JVD not raised; masses not palpable. HEART: First and second heart sounds are normal; decrease edema LUNGS: Respiratory rate normal; decreased breath sounds. ABDOMEN: Soft, nontender, liver spleen not palpable, no masses palpable. Khalil catheter PSYCH: Alert and oriented x3; mood and affect tired. INVESTIGATIONS, reviewed in the clinical context: September 30: WBC 8.6 hemoglobin 12.2 platelets 145 potassium 3.9 creatinine 6.43 Barium swallow: Breasts by esophagus September 28: Potassium 5.5 creatinine 8.5 for WBC 7.8 hemoglobin 14 platelets 177 potassium 5.4 bicarb 16 BUN 71 crit 7.6 phosphorus 7.6 Renal ultrasound: Negative Telemetric [personally reviewed by me]: Normal sinus rhythm. Nonspecific T-wave changes. Admission labs: Potassium 5.7 BUN 63 creatinine 7.13 UA positive for leukoesterase, WBC. His, some epithelial cells 6 Chest x-ray film personally reviewed by me-pulmonary edema, cardiomegaly, pacemaker Doppler ultrasound: Negative for DVT Previous labs: BUN 25, creatinine 1.54 in May 2020 Assessment and plan: -Acute kidney injury combination of prerenal and ATN, multifactorial. Underlying CKD. signs of uremia including slight confusion, fluid overload, edema: Slow to respond Started on hemodialysis. Cause undetermined. Outpatient renal biopsy -Acute uremic symptoms from advancing renal failure.: Improving Started hemodialysis on September 28 -Diabetes mellitus type 2, chronically on insulin, uncontrolled with hypoglycemia Decrease Levemir 24 units subcu daily at bedtime. Humalog 5 units with meals. Follow Accu-Cheks -Essential hypertension Continue Lopressor, nitrates- -Peripheral arterial disease with recent interventions Continue with aspirin [currently held] and Lipitor -Diabetic peripheral neuropathy In the setting of renal failure will cut back on the dose of Neurontin. 100 mg daily at bedtime -Acute metabolic and uremic encephalopathy, including contribution from Neurontin. DC Neurontin. Patient should do better after hemodialysis. -Chronic gait dysfunction baseline uses a cane -Hyperphosphatemia from renal failure PhosLo -Coronary artery disease with a previous stent and bypass Continue with nitrates, aspirin [currently held], beta thierry -COPD in a previous smoker DuoNeb 3 times a day -Hyperkalemia secondary to renal failure: Renal diet. Hemodialysis -Metabolic acidosis due to renal failure Sodium bicarbonate -Acute on chronic fluid overload from renal failure Improvement with hemodialysis -GERD Use Pepcid -Presbyesophagus coming dysphagia Discussed with the patient to have soft food and chew his food well. -Disposition: Possibly home Hemodialysis today. We will watch urine output. Increase Humalog to 5 units with meals. Other medications to continue. Activity as tolerated.
[2020-10-02 06:07] LABS: African American GFR (CKD) 10 (>60 ml/min/1.73 sqM); Anion Gap 12 mmol/L; Blood Urea Nitrogen 38 mg/dL (9-20); Calcium 8.5 mg/dL (8.4-10.2); Carbon Dioxide 23 mmol/L (22-30); Chloride 100 mmol/L (98-107); Glucose 122 mg/dL (74-99); Non-African American GFR(CKD) 8 (>60 ml/min/1.73 sqM); Potassium 4.2 mmol/L (3.5-5.1); Sodium 135 mmol/L (137-145)
[2020-10-02 06:47] LABS: Glucose,Whole Blood 105 mg/dL (75-99)
[2020-10-02] MEDS: INSULIN ASPART (NovoLOG) 100 UNIT/ML VIAL SQ SCH ×6 (06:55→21:22)
[2020-10-02] MEDS: FUROSEMIDE 10 MG/ML 10 ML VIAL IV SCH ×2 (07:23→21:23)
[2020-10-02] MEDS: RANOLAZINE 500 MG TAB.ER.12H PO SCH (07:24)
[2020-10-02] MEDS: ISOSORBIDE MONONITRATE ER 30 MG TAB.ER.24H PO SCH (07:24)
[2020-10-02] MEDS: METOPROLOL TARTRATE 50 MG TAB PO SCH ×2 (07:24→21:22)
[2020-10-02] MEDS ORDERED: INSULIN ASPART (NovoLOG) 100 UNIT/ML VIAL SQ SCH (07:30)
[2020-10-02] MEDS: IPRATROPIUM-ALBUTEROL 3 ML NEB INHALATION SCH ×3 (07:47→20:09)
[2020-10-02 11:42] LABS: Glucose,Whole Blood 242 mg/dL (75-99)
--- NOTE | 2020-10-02 11:58 | P.PN ---
Progress Note - Text Progress Note Date: 10/02/20 Chief Complaint: Tired History of presenting complaint: This is a pleasant 80-year-old patient who follows with Dr. Danny Domínguez. Chronic stable medical conditions include coronary artery with stent, COPD, diabetes, DVT, GERD, hyperlipidemia, rheumatoid arthritis, exposure to Agent [place] in [place], peripheral neuropathy, baseline uses a cane. Patient also has peripheral arterial disease being followed by Dr. Hernández. Patient presents with multiple symptoms including feeling floppy-tipped is a decrease appetite tired rundown. Increase Lopressor to edema. Patient was found to have creatinine of 7.5 and in the ER in the BUN of 66. Patient's creatinine in May of this year was 1.54. Patient been having blood draws and his family doctor and per the daughter the bedside patient's creatinine was increased 2 weeks ago. Patient has been becoming a bit more forgetful. No fever no chills. He also notices that food gets stuck in the chest performed: This is started off late. Patient's son and daughter the bedside. Patient initially in the ER did not want dialysis but is now open to the same. Patient is given IV Lasix. Not make any urine. Spoke to the patient and the family. Agreeable 4 hemodialysis. September 28: Sitting up in a chair. Khalil catheter placed. Minimal urine output. Shortness of breath. Tired. Son is present. Discussed with Dr. Tafoya from nephrology. Patient to be started on hemodialysis. September 29: Hemodialysis catheter placed in the right IJ yesterday by Dr. Carey. Did get dialyzed yesterday. Sitting up in a chair. Khalil catheter. Decreased shortness of breath decrease edema. Due for hemodialysis today. Barium swallow did show presbyesophagus. Results discussed with the patient. September 30: Sitting up in a chair. A bit tired. Seen by nephrology. For kidney biopsy in a week. Aspirin held. No hemodialysis today. Decrease edema. October 01: Tired but feeling better. Making urine. For hemodialysis later today. Plan is then to see how patient does with urine output and then decide about long-term dialysis. October 02: Making urine. Tired. Did walk with a walker. Slight drop in creatinine. Decision to hemodialysis again tomorrow. Breathing a bit better. Review of systems: Was done for constitutional, cardiovascular, GI, pulmonary. relevant finding as above Active Medications Acetaminophen (Acetaminophen Tab 325 Mg Tab) 650 mg PO Q6HR PRN PRN Reason: Fever and/ or Mild Pain Last Admin: 09/28/20 16:47 Dose: 650 mg Documented by: Albuterol Sulfate (Albuterol Nebulized 2.5 Mg/3 Ml) 2.5 mg INHALATION Q6H PRN PRN Reason: Shortness Of Breath Albuterol/Ipratropium (Ipratropium-Albuterol 3 Ml Neb) 3 ml INHALATION RT-TID [facility] Last Admin: 10/02/20 11:35 Dose: Not Given Documented by: Atorvastatin Calcium (Atorvastatin 20 Mg Tab) 20 mg PO [facility] Last Admin: 10/01/20 20:18 Dose: 20 mg Documented by: Furosemide (Furosemide 10 Mg/Ml 10 Ml Vial) 60 mg IV Q12HR [facility] Last Admin: 10/02/20 07:23 Dose: 60 mg Documented by: Insulin Aspart (Insulin Aspart (Novolog) 100 Unit/Ml Vial) 0 unit SQ [facility]; Protocol Last Admin: 10/02/20 06:55 Dose: Not Given Documented by: Insulin Aspart (Insulin Aspart (Novolog) 100 Unit/Ml Vial) 5 unit SQ AC-TID [facility] Last Admin: 10/02/20 06:55 Dose: Not Given Documented by: Insulin Detemir (Insulin Detemir (Levemir) 100 Unit/Ml Syr) 24 unit SQ [facility] Last Admin: 10/01/20 20:19 Dose: 24 unit Documented by: Isosorbide Mononitrate (Isosorbide Mononitrate Er 30 Mg Tab.Er.24h) 30 mg PO DAILY [facility] Last Admin: 10/02/20 07:24 Dose: 30 mg Documented by: Isosorbide Mononitrate (Isosorbide Mononitrate Er 60 Mg Tab.Er.24h) 60 mg PO [facility] Last Admin: 10/01/20 20:18 Dose: 60 mg Documented by: Metoprolol Tartrate (Metoprolol Tartrate 50 Mg Tab) 50 mg PO [facility]ID [facility] Last Admin: 10/02/20 07:24 Dose: 50 mg Documented by: Midodrine (Midodrine 5 Mg Tab) 10 mg PO AC-TID PRN PRN Reason: Blood Pressure - Low Last Admin: 09/28/20 17:04 Dose: 10 mg Documented by: Naloxone HCl (Naloxone 0.4 Mg/Ml 1 Ml Vial) 0.2 mg IV Q2M PRN PRN Reason: Opioid Reversal Nitroglycerin (Nitroglycerin Sl Tabs 0.4 Mg Tab) 0.4 mg SUBLINGUAL Q5M PRN PRN Reason: Chest Pain Ranolazine (Ranolazine 500 Mg Tab.Er.12h) 500 mg PO DAILY [facility] Last Admin: 10/02/20 07:24 Dose: 500 mg Documented by: Past medical history to include: Coronary artery disease, COPD, diabetes, DVT, GERD, hyperlipidemia, [place], rheumatoid arthritis, exposure to Agent [place] in [place], DVTs in the left leg after getting the low bicarbonate 96, colitis, bilateral peripheral neuropathy, coronary artery bypass in 2007, coronary artery with stent, peripheral interventions Social history: Lives alone. Does use a cane. No alcohol. 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 Patient smoked for about 50 years about half a pack a day stopped smoking in 2008 Family history: Cancer Physical examination: VITAL SIGNS: 98, 67, 15, 110/65, 96% room air GENERAL:, Up in a chair, tired awake. EYES: Pupils equal. Conjunctiva palel. HEENT: External appearance of nose and ears normal, oral cavity grossly normal. NECK: JVD not raised; masses not palpable. HEART: First and second heart sounds are normal; decrease edema LUNGS: Respiratory rate normal; decreased breath sounds. ABDOMEN: Soft, nontender, liver spleen not palpable, no masses palpable. Khalil catheter PSYCH: Alert and oriented x3; mood and affect tired. INVESTIGATIONS, reviewed in the clinical context: October 01: Potassium 4.2 creatinine 5.91 September 30: WBC 8.6 hemoglobin 12.2 platelets 145 potassium 3.9 creatinine 6.43 Barium swallow: Breasts by esophagus September 28: Potassium 5.5 creatinine 8.5 for WBC 7.8 hemoglobin 14 platelets 177 potassium 5.4 bicarb 16 BUN 71 crit 7.6 phosphorus 7.6 Renal ultrasound: Negative Telemetric [personally reviewed by me]: Normal sinus rhythm. Nonspecific T-wave changes. Admission labs: Potassium 5.7 BUN 63 creatinine 7.13 UA positive for leukoesterase, WBC. His, some epithelial cells 6 Chest x-ray film personally reviewed by me-pulmonary edema, cardiomegaly, pacemaker Doppler ultrasound: Negative for DVT Previous labs: BUN 25, creatinine 1.54 in May 2020 Assessment and plan: -Acute kidney injury combination of prerenal and ATN, multifactorial. Underlying CKD. signs of uremia including slight confusion, fluid overload, edema: Slow to respond Started on hemodialysis. Cause undetermined. Outpatient renal biopsy. For hemodialysis tomorrow. None today. -Acute uremic symptoms from advancing renal failure.: Some improvement Started hemodialysis on September 28 -Diabetes mellitus type 2, chronically on insulin, uncontrolled with hyperglycemia Levemir 24 units subcu daily at bedtime. Increase Humalog 6 units with meals. Follow Accu-Cheks -Essential hypertension Continue Lopressor, nitrates- -Peripheral arterial disease with recent interventions Continue with aspirin [currently held] and Lipitor -Diabetic peripheral neuropathy Continue symptoms. DC Neurontin -Acute metabolic and uremic encephalopathy, including contribution from Neurontin. DC Neurontin. Patient should do better after hemodialysis. -Chronic gait dysfunction baseline uses a cane -Hyperphosphatemia from renal failure PhosLo -Coronary artery disease with a previous stent and bypass Continue with nitrates, aspirin [currently held], beta thierry -COPD in a previous smoker DuoNeb 3 times a day -Hyperkalemia secondary to renal failure: Renal diet. Hemodialysis -Metabolic acidosis due to renal failure Sodium bicarbonate -Acute on chronic fluid overload from renal failure Improvement with hemodialysis -GERD Use Pepcid -Presbyesophagus coming dysphagia Discussed with the patient to have soft food and chew his food well. -Disposition: Possibly home Hemodialysis tomorrow. Other medications to continue. Increase Humalog to 6 units with meals. Follow
[2020-10-02 12:59] VITALS: BMI 31.6
--- NOTE | 2020-10-02 14:05 | PN ---
PROGRESS NOTE Patient is seen for followup for acute kidney injury. He has been started on dialysis secondary to uremia and volume overload. Serum creatinine is at 5.9 based on labs from yesterday. Initial creatinine was 7.1. The patient has an indwelling Khalil catheter with increased urine output. He is currently maintained on IV Lasix. Overall, patient states he is feeling better. He has had two treatments of hemodialysis. We will give him a break today and plan for a treatment tomorrow again unless there is significant improvement in urine output and labs. PHYSICAL EXAMINATION: On examination today, blood pressure 110/65, heart rate 67 per minute. Patient is afebrile. Examination of the heart S1, S2. Examination of the lungs, bilateral breath sounds are heard. Abdomen is soft, nontender. Examination of lower extremities shows edema 2+ bilaterally. CELL MAKER exam grossly intact. LAB: Show sodium 135, potassium 4.2, chloride 100, BUN 38, creatinine 5.9 from 10/02/2020. ASSESSMENT: 1. Acute kidney injury most likely acute tubular necrosis. UA had shown trace protein and trace blood. All serologies are currently negative. No evidence of obstruction. Urine eosinophiles were negative. We will plan for biopsy if there is no improvement in renal function over the next few days. Aspirin is currently on hold. The patient's previous creatinine was as low as 1.5 on 06/17/2020. 2. Volume overload, currently improving. 3. Uremia, now improved. The patient has had two dialysis treatments thus far. 4. Hyperkalemia, improved post dialysis. 5. Hypertension, blood pressure now low, currently maintained on Lopressor. Most recent blood pressure has been good with systolic around 130s to 140s. PLAN: Continue with IV Lasix. Proceed with outpatient chair time placement for now and we will plan for a kidney biopsy down the road. Aspirin is currently on hold. This will be held if there is improvement of renal function and recovery of renal function. MMODL / IJN: [id number] /
[2020-10-02 16:34] LABS: Glucose,Whole Blood 73 mg/dL (75-99)
[2020-10-02 20:47] LABS: Glucose,Whole Blood 265 mg/dL (75-99)
[2020-10-02] MEDS: ISOSORBIDE MONONITRATE ER 60 MG TAB.ER.24H PO SCH (21:22)
[2020-10-02] MEDS: INSULIN DETEMIR (LEVEMIR) 100 UNIT/ML SYR SQ SCH (21:22)
[2020-10-02] MEDS: ATORVASTATIN 20 MG TAB PO SCH (21:22)
[2020-10-03 07:07] LABS: Glucose,Whole Blood 108 mg/dL (75-99)
[2020-10-03] MEDS: INSULIN ASPART (NovoLOG) 100 UNIT/ML VIAL SQ SCH ×7 (07:26→21:44)
[2020-10-03] MEDS: METOPROLOL TARTRATE 50 MG TAB PO SCH ×3 (07:27→19:50)
[2020-10-03] MEDS: ACETAMINOPHEN TAB 325 MG TAB PO PRN ×2 (07:28→19:50)
[2020-10-03] MEDS: FUROSEMIDE 10 MG/ML 10 ML VIAL IV SCH ×2 (07:28→19:51)
[2020-10-03] MEDS: IPRATROPIUM-ALBUTEROL 3 ML NEB INHALATION SCH ×3 (07:28→19:39)
[2020-10-03] MEDS: RANOLAZINE 500 MG TAB.ER.12H PO SCH (07:28)
[2020-10-03] MEDS: ISOSORBIDE MONONITRATE ER 30 MG TAB.ER.24H PO SCH (07:28)
[2020-10-03 11:31] LABS: Glucose,Whole Blood 123 mg/dL (75-99)
[2020-10-03 16:56] LABS: Glucose,Whole Blood 206 mg/dL (75-99)
--- NOTE | 2020-10-03 19:37 | P.PN ---
Progress Note - Text Progress Note Date: 10/03/20 Chief Complaint: Tired History of presenting complaint: This is a pleasant 80-year-old patient who follows with Dr. Danny Domínguez. Chronic stable medical conditions include coronary artery with stent, COPD, diabetes, DVT, GERD, hyperlipidemia, rheumatoid arthritis, exposure to Agent [place] in [place], peripheral neuropathy, baseline uses a cane. Patient also has peripheral arterial disease being followed by Dr. Hernández. Patient presents with multiple symptoms including feeling floppy-tipped is a decrease appetite tired rundown. Increase Lopressor to edema. Patient was found to have creatinine of 7.5 and in the ER in the BUN of 66. Patient's creatinine in May of this year was 1.54. Patient been having blood draws and his family doctor and per the daughter the bedside patient's creatinine was increased 2 weeks ago. Patient has been becoming a bit more forgetful. No fever no chills. He also notices that food gets stuck in the chest performed: This is started off late. Patient's son and daughter the bedside. Patient initially in the ER did not want dialysis but is now open to the same. Patient is given IV Lasix. Not make any urine. Spoke to the patient and the family. Agreeable 4 hemodialysis. September 28: Sitting up in a chair. Khalil catheter placed. Minimal urine output. Shortness of breath. Tired. Son is present. Discussed with Dr. Tafoya from nephrology. Patient to be started on hemodialysis. September 29: Hemodialysis catheter placed in the right IJ yesterday by Dr. Carey. Did get dialyzed yesterday. Sitting up in a chair. Khalil catheter. Decreased shortness of breath decrease edema. Due for hemodialysis today. Barium swallow did show presbyesophagus. Results discussed with the patient. September 30: Sitting up in a chair. A bit tired. Seen by nephrology. For kidney biopsy in a week. Aspirin held. No hemodialysis today. Decrease edema. October 01: Tired but feeling better. Making urine. For hemodialysis later today. Plan is then to see how patient does with urine output and then decide about long-term dialysis. October 02: Making urine. Tired. Did walk with a walker. Slight drop in creatinine. Decision to hemodialysis again tomorrow. Breathing a bit better. October 03: Good oral intake. Faint urine output. Hemodialyzed today with 1500 output. Plan was to see how patient does with renal function and hopefully discharge soon. Review of systems: Was done for constitutional, cardiovascular, GI, pulmonary. relevant finding as above Active Medications Acetaminophen (Acetaminophen Tab 325 Mg Tab) 650 mg PO Q6HR PRN PRN Reason: Fever and/ or Mild Pain Last Admin: 10/03/20 07:28 Dose: 650 mg Documented by: Albuterol Sulfate (Albuterol Nebulized 2.5 Mg/3 Ml) 2.5 mg INHALATION Q6H PRN PRN Reason: Shortness Of Breath Albuterol/Ipratropium (Ipratropium-Albuterol 3 Ml Neb) 3 ml INHALATION RT-TID [facility] Last Admin: 10/03/20 11:34 Dose: Not Given Documented by: Atorvastatin Calcium (Atorvastatin 20 Mg Tab) 20 mg PO [facility] Last Admin: 10/02/20 21:22 Dose: 20 mg Documented by: Furosemide (Furosemide 10 Mg/Ml 10 Ml Vial) 60 mg IV Q12HR [facility] Last Admin: 10/03/20 07:28 Dose: 60 mg Documented by: Insulin Aspart (Insulin Aspart (Novolog) 100 Unit/Ml Vial) 0 unit SQ [facility]; Protocol Last Admin: 10/03/20 17:41 Dose: 3 unit Documented by: Insulin Aspart (Insulin Aspart (Novolog) 100 Unit/Ml Vial) 6 unit SQ AC-TID [facility] Last Admin: 10/03/20 17:41 Dose: 6 unit Documented by: Insulin Detemir (Insulin Detemir (Levemir) 100 Unit/Ml Syr) 24 unit SQ [facility] Last Admin: 10/02/20 21:22 Dose: 24 unit Documented by: Isosorbide Mononitrate (Isosorbide Mononitrate Er 30 Mg Tab.Er.24h) 30 mg PO DAILY [facility] Last Admin: 10/03/20 07:28 Dose: Not Given Documented by: Isosorbide Mononitrate (Isosorbide Mononitrate Er 60 Mg Tab.Er.24h) 60 mg PO [facility] Last Admin: 10/02/20 21:22 Dose: 60 mg Documented by: Metoprolol Tartrate (Metoprolol Tartrate 50 Mg Tab) 50 mg PO BID [facility] Last Admin: 10/03/20 07:31 Dose: Not Given Documented by: Midodrine (Midodrine 5 Mg Tab) 10 mg PO AC-TID PRN PRN Reason: Blood Pressure - Low Last Admin: 09/28/20 17:04 Dose: 10 mg Documented by: Naloxone HCl (Naloxone 0.4 Mg/Ml 1 Ml Vial) 0.2 mg IV Q2M PRN PRN Reason: Opioid Reversal Nitroglycerin (Nitroglycerin Sl Tabs 0.4 Mg Tab) 0.4 mg SUBLINGUAL Q5M PRN PRN Reason: Chest Pain Ranolazine (Ranolazine 500 Mg Tab.Er.12h) 500 mg PO DAILY [facility] Last Admin: 10/03/20 07:28 Dose: 500 mg Documented by: Past medical history to include: Coronary artery disease, COPD, diabetes, DVT, GERD, hyperlipidemia, [place], rheumatoid arthritis, exposure to Agent [place] in [place], DVTs in the left leg after getting the low bicarbonate 96, colitis, bilateral peripheral neuropathy, coronary artery bypass in 2007, coronary artery with stent, peripheral interven tions Social history: Lives alone. Does use a cane. No alcohol. 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 Patient smoked for about 50 years about half a pack a day stopped smoking in 2008 Family history: Cancer Physical examination: VITAL SIGNS: 98, 76, 16, 140/72, 96% room air GENERAL:, Sitting of the edge of the bed, eating EYES: Pupils equal. Conjunctiva palel. HEENT: External appearance of nose and ears normal, oral cavity grossly normal. NECK: JVD not raised; masses not palpable. HEART: First and second heart sounds are normal; decrease edema LUNGS: Respiratory rate normal; decreased breath sounds. ABDOMEN: Soft, nontender, liver spleen not palpable, no masses palpable. Khalil catheter PSYCH: Alert and oriented x3; mood and affect tired. INVESTIGATIONS, reviewed in the clinical context: October 01: Potassium 4.2 creatinine 5.91 September 30: WBC 8.6 hemoglobin 12.2 platelets 145 potassium 3.9 creatinine 6.43 Barium swallow: Breasts by esophagus September 28: Potassium 5.5 creatinine 8.5 for WBC 7.8 hemoglobin 14 platelets 177 potassium 5.4 bicarb 16 BUN 71 crit 7.6 phosphorus 7.6 Renal ultrasound: Negative Telemetric [personally reviewed by me]: Normal sinus rhythm. Nonspecific T-wave changes. Admission labs: Potassium 5.7 BUN 63 creatinine 7.13 UA positive for leukoesterase, WBC. His, some epithelial cells 6 Chest x-ray film personally reviewed by me-pulmonary edema, cardiomegaly, pacemaker Doppler ultrasound: Negative for DVT Previous labs: BUN 25, creatinine 1.54 in May 2020 Assessment and plan: -Acute kidney injury combination of prerenal and ATN, multifactorial. Underlying CKD. signs of uremia including slight confusion, fluid overload, edema: Slow to respond Started on hemodialysis. Cause undetermined. Outpatient renal biopsy. Hemod ialyzed today. -Acute uremic symptoms from advancing renal failure.: Some improvement Started hemodialysis on September 28 -Diabetes mellitus type 2, chronically on insulin, uncontrolled with hyperglyc emia Levemir 24 units subcu daily at bedtime. Humalog 6 units with meals. Follow Accu-Cheks -Essential hypertension Continue Lopressor, nitrates- -Peripheral arterial disease with recent interventions Continue with aspirin [currently held] and Lipitor -Diabetic peripheral neuropathy Continue symptoms. DC Neurontin -Acute metabolic and uremic encephalopathy, including contribution from Neuro ntin. DC Neurontin. Patient should do better after hemodialysis. -Chronic gait dysfunction baseline uses a cane -Hyperphosphatemia from renal failure PhosLo -Coronary artery disease with a previous stent and bypass Continue with nitrates, aspirin [currently held], beta tiherry -COPD in a previous smoker DuoNeb 3 times a day -Hyperkalemia secondary to renal failure: Renal diet. Hemodialysis -Metabolic acidosis due to renal failure Sodium bicarbonate -Acute on chronic fluid overload from renal failure Improvement with hemodialysis -GERD Use Pepcid -Presbyesophagus coming dysphagia Discussed with the patient to have soft food and chew his food well. -Disposition: Possibly home Hemodialyzed today. Possibly with hemodialysis as outpatient. Being set up by nephrology. Discussed with the patient. Continue current medications.
[2020-10-03] MEDS: ATORVASTATIN 20 MG TAB PO SCH (19:50)
[2020-10-03] MEDS: ISOSORBIDE MONONITRATE ER 60 MG TAB.ER.24H PO SCH (19:50)
[2020-10-03 21:10] LABS: Glucose,Whole Blood 117 mg/dL (75-99)
[2020-10-03] MEDS: INSULIN DETEMIR (LEVEMIR) 100 UNIT/ML SYR SQ SCH (21:44)
[2020-10-04 07:05] LABS: Glucose,Whole Blood 66 mg/dL (75-99)
[2020-10-04 07:24] LABS: Glucose,Whole Blood 71 mg/dL (75-99)
[2020-10-04] MEDS: INSULIN ASPART (NovoLOG) 100 UNIT/ML VIAL SQ SCH ×7 (07:48→21:47)
[2020-10-04] MEDS: FUROSEMIDE 10 MG/ML 10 ML VIAL IV SCH ×2 (07:49→21:46)
[2020-10-04] MEDS: ISOSORBIDE MONONITRATE ER 30 MG TAB.ER.24H PO SCH (07:49)
[2020-10-04] MEDS: ACETAMINOPHEN TAB 325 MG TAB PO PRN (07:49)
[2020-10-04] MEDS: METOPROLOL TARTRATE 50 MG TAB PO SCH ×2 (07:49→21:46)
[2020-10-04] MEDS: RANOLAZINE 500 MG TAB.ER.12H PO SCH (07:50)
[2020-10-04] MEDS: IPRATROPIUM-ALBUTEROL 3 ML NEB INHALATION SCH ×3 (07:57→20:50)
--- NOTE | 2020-10-04 10:14 | P.PN ---
Subjective Patient is seen in follow-up for acute kidney injury on chronic kidney disease, currently hemodialysis dependent. Sitting up in chair. Urine output 700 mL overnight. Denies chest pain or shortness of breath. Vital signs are stable. General: The patient appeared well nourished and normally developed. HEENT: Head exam is unremarkable. Neck is without jugular venous distension. LUNGS: Breath sounds decreased. HEART: Rate and Rhythm are regular. ABDOMEN: Soft, no distention. EXTREMITITES: Trace edema. Objective - Vital Signs Vital signs: Vital Signs Temp 97.5 F L 10/04/20 07:43 Pulse 64 10/04/20 07:43 Resp 18 10/04/20 07:43 BP 126/66 10/04/20 07:43 Pulse Ox 98 10/04/20 07:43 Intake & Output 10/03/20 10/04/20 10/04/20 18:59 06:59 18:59 Intake Total 480 Output Total 1500 750 Balance -1500 -270 Intake: Oral 480 Output: Urine 750 Uretheral (Khalil) 750 Hemodialysis 1500 Other: Voiding Method Indwelling Catheter Indwelling Catheter Indwelling Catheter - Labs CBC & Chem 7: 09/30/20 06:16 10/02/20 05:27 Labs: Abnormal Lab Results - Last 24 Hours (Table) 10/03/20 10/03/20 10/03/20 Range/Units 11:30 16:53 21:04 POC Glucose (mg/dL) 123 H 206 H 117 H (75-99) mg/dL 10/04/20 10/04/20 Range/Units 07:04 07:22 POC Glucose (mg/dL) 66 L 71 L (75-99) mg/dL Assessment and Plan Plan: Assessment: 1. Acute kidney injury secondary to ATN secondary to cardiorenal syndrome. Serologies and urine eosinophils negative. Started on hemodialysis on 09/28/2020. Last hemodialysis October 03. 2. Chronic kidney disease stage III B with creatinine 1.5 in May 2020. Etiology is diabetic kidney disease. 3. Volume overload. Improved with ultrafiltration and diuresis. 4. Hyperkalemia secondary to acute kidney injury. Improved postdialysis. 5. Hypertension with chronic kidney disease. Stable. 6. Uremia. Improved postdialysis. 7. Acute on chronic systolic CHF with ejection fraction of 30-35%. 8. Diabetes mellitus. Plan: Maintain IV Lasix. Hold off on dialysis over the weekend and reassess on Tuesday for further need for renal placement therapy. Avoid nephrotoxins. Strict is and os. Outpatient dialysis is being set up. Will plan for kidney biopsy if no improvement in renal function
[2020-10-04 11:34] LABS: Glucose,Whole Blood 262 mg/dL (75-99)
--- NOTE | 2020-10-04 14:33 | P.PN ---
Progress Note - Text Progress Note Date: 10/04/20 Chief Complaint: Tired History of presenting complaint: This is a pleasant 80-year-old patient who follows with Dr. Danny Domínguez. Chronic stable medical conditions include coronary artery with stent, COPD, diabetes, DVT, GERD, hyperlipidemia, rheumatoid arthritis, exposure to [place] in [place], peripheral neuropathy, baseline uses a cane. Patient also has peripheral arterial disease being followed by Dr. Hernández. Patient presents with multiple symptoms including feeling floppy-tipped is a decrease appetite tired rundown. Increase Lopressor to edema. Patient was found to have creatinine of 7.5 and in the ER in the BUN of 66. Patient's creatinine in May of this year was 1.54. Patient been having blood draws and his family doctor and per the daughter the bedside patient's creatinine was increased 2 weeks ago. Patient has been becoming a bit more forgetful. No fever no chills. He also notices that food gets stuck in the chest performed: This is started off late. Patient's son and daughter the bedside. Patient initially in the ER did not want dialysis but is now open to the same. Patient is given IV Lasix. Not make any urine. Spoke to the patient and the family. Agreeable 4 hemodialysis. September 28: Sitting up in a chair. Khalil catheter placed. Minimal urine output. Shortness of breath. Tired. Son is present. Discussed with Dr. Tafoya from nephrology. Patient to be started on hemodialysis. September 29: Hemodialysis catheter placed in the right IJ yesterday by Dr. Carey. Did get dialyzed yesterday. Sitting up in a chair. Khalil catheter. Decreased shortness of breath decrease edema. Due for hemodialysis today. Barium swallow did show presbyesophagus. Results discussed with the patient. September 30: Sitting up in a chair. A bit tired. Seen by nephrology. For kidney biopsy in a week. Aspirin held. No hemodialysis today. Decrease edema. October 01: Tired but feeling better. Making urine. For hemodialysis later today. Plan is then to see how patient does with urine output and then decide about long-term dialysis. October 02: Making urine. Tired. Did walk with a walker. Slight drop in creatinine. Decision to hemodialysis again tomorrow. Breathing a bit better. October 03: Good oral intake. Faint urine output. Hemodialyzed today with 1500 output. Plan was to see how patient does with renal function and hopefully discharge soon. October 04: Sitting up in a chair. Oral intake fair. Breathing stable. Was hemodialyzed yesterday. None over the weekend. Fair urine output. Instructed to use incentive spirometry Review of systems: Was done for constitutional, cardiovascular, GI, pulmonary. relevant finding as above Active Medications Acetaminophen (Acetaminophen Tab 325 Mg Tab) 650 mg PO Q6HR PRN PRN Reason: Fever and/ or Mild Pain Last Admin: 10/04/20 07:49 Dose: 650 mg Documented by: Albuterol Sulfate (Albuterol Nebulized 2.5 Mg/3 Ml) 2.5 mg INHALATION Q6H PRN PRN Reason: Shortness Of Breath Albuterol/Ipratropium (Ipratropium-Albuterol 3 Ml Neb) 3 ml INHALATION RT-TID [facility] Last Admin: 10/04/20 11:18 Dose: Not Given Documented by: Atorvastatin Calcium (Atorvastatin 20 Mg Tab) 20 mg PO [facility] Last Admin: 10/03/20 19:50 Dose: 20 mg Documented by: Furosemide (Furosemide 10 Mg/Ml 10 Ml Vial) 60 mg IV Q12HR [facility] Last Admin: 10/04/20 07:49 Dose: 60 mg Documented by: Insulin Aspart (Insulin Aspart (Novolog) 100 Unit/Ml Vial) 0 unit SQ [facility]; Protocol Last Admin: 10/04/20 11:58 Dose: 4 unit Documented by: Insulin Aspart (Insulin Aspart (Novolog) 100 Unit/Ml Vial) 6 unit SQ AC-TID [facility] Last Admin: 10/04/20 11:58 Dose: 6 unit Documented by: Insulin Detemir (Insulin Detemir (Levemir) 100 Unit/Ml Syr) 24 unit SQ [facility] Last Admin: 10/03/20 21:44 Dose: 24 unit Documented by: Isosorbide Mononitrate (Isosorbide Mononitrate Er 30 Mg Tab.Er.24h) 30 mg PO DAILY [facility] Last Admin: 10/04/20 07:49 Dose: 30 mg Documented by: Isosorbide Mononitrate (Isosorbide Mononitrate Er 60 Mg Tab.Er.24h) 60 mg PO [facility] Last Admin: 10/03/20 19:50 Dose: 60 mg Documented by: Metoprolol Tartrate (Metoprolol Tartrate 50 Mg Tab) 50 mg PO BID [facility] Last Admin: 10/04/20 07:49 Dose: 50 mg Documented by: Midodrine (Midodrine 5 Mg Tab) 10 mg PO AC-TID PRN PRN Reason: Blood Pressure - Low Last Admin: 09/28/20 17:04 Dose: 10 mg Documented by: Naloxone HCl (Naloxone 0.4 Mg/Ml 1 Ml Vial) 0.2 mg IV Q2M PRN PRN Reason: Opioid Reversal Nitroglycerin (Nitroglycerin Sl Tabs 0.4 Mg Tab) 0.4 mg SUBLINGUAL Q5M PRN PRN Reason: Chest Pain Ranolazine (Ranolazine 500 Mg Tab.Er.12h) 500 mg PO DAILY [facility] Last Admin: 10/04/20 07:50 Dose: 500 mg Documented by: Past medical history to include: Coronary artery disease, COPD, diabetes, DVT, GERD, hyperlipidemia, [place], rheumatoid arthritis, exposure to [place] in [place], DVTs in the left leg after getting the low bicarbonate 96, colitis, bilateral peripheral neuropathy, coronary artery bypass in 2007, coronary artery with stent, peripheral interventions Social history: Lives alone. Does use a cane. No alcohol. 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 Patient smoked for about 50 years about half a pack a day stopped smoking in 2008 Family history: Cancer Physical examination: VITAL SIGNS: 98.1, 70, 18, 1 33 x 6 6, 97% room air GENERAL:, T chair, comfortable EYES: Pupils equal. Conjunctiva pale. HEENT: External appearance of nose and ears normal, oral cavity grossly normal. NECK: JVD not raised; masses not palpable. HEART: First and second heart sounds are normal; decrease edema LUNGS: Respiratory rate normal; decreased breath sounds. ABDOMEN: Soft, nontender, liver spleen not palpable, no masses palpable. Khalil catheter PSYCH: Alert and oriented x3; mood and affect tired. INVESTIGATIONS, reviewed in the clinical context: October 01: Potassium 4.2 creatinine 5.91 September 30: WBC 8.6 hemoglobin 12.2 platelets 145 potassium 3.9 creatinine 6.43 Barium swallow: Breasts by esophagus September 28: Potassium 5.5 creatinine 8.5 for WBC 7.8 hemoglobin 14 platelets 177 potassium 5.4 bicarb 16 BUN 71 crit 7.6 phosphorus 7.6 Renal ultrasound: Negative Telemetric [personally reviewed by me]: Normal sinus rhythm. Nonspecific T-wave changes. Admission labs: Potassium 5.7 BUN 63 creatinine 7.13 UA positive for leukoesterase, WBC. His, some epithelial cells 6 Chest x-ray film personally reviewed by me-pulmonary edema, cardiomegaly, pacema ker Doppler ultrasound: Negative for DVT Previous labs: BUN 25, creatinine 1.54 in May 2020 Assessment and plan: -Acute kidney injury combination of prerenal and ATN, multifactorial. Underlying CKD. signs of uremia including slight confusion, fluid overload, edema: Slow to respond Started on hemodialysis. Cause undetermined. Outpatient renal biopsy. Hemodialyzed today. -Acute uremic symptoms from advancing renal failure.: Some improvement Started hemodialysis on September 28 -Diabetes mellitus type 2, chronically on insulin, uncontrolled with hyperglycemia Decrease Levemir 20 units subcu daily at bedtime. Humalog 5 units with meals. Follow Accu-Cheks -Essential hypertension Continue Lopressor, nitrates- -Peripheral arterial disease with recent interventions Continue with aspirin [currently held] and Lipitor -Diabetic peripheral neuropathy Continue symptoms. DC Neurontin -Acute metabolic and uremic encephalopathy, including contribution from Neurontin. DC Neurontin. Patient should do better after hemodialysis. -Chronic gait dysfunction baseline uses a cane -Hyperphosphatemia from renal failure PhosLo -Coronary artery disease with a previous stent and bypass Continue with nitrates, aspirin [currently held], beta thierry -COPD in a previous smoker DuoNeb 3 times a day -Hyperkalemia secondary to renal failure: Renal diet. Hemodialysis -Metabolic acidosis due to renal failure Sodium bicarbonate -Acute on chronic fluid overload from renal failure Improvement with hemodialysis -GERD Use Pepcid -Presbyesophagus coming dysphagia Discussed with the patient to have soft food and chew his food well. -Disposition: Possibly home Hemodialyzed yesterday. Decrease Levemir to 20 units at night. And decrease Humalog to 5 units with meals. Other medications to continue.
[2020-10-04 16:31] LABS: Glucose,Whole Blood 135 mg/dL (75-99)
[2020-10-04 21:14] LABS: Glucose,Whole Blood 147 mg/dL (75-99)
[2020-10-04] MEDS: ISOSORBIDE MONONITRATE ER 60 MG TAB.ER.24H PO SCH (21:46)
[2020-10-04] MEDS: ATORVASTATIN 20 MG TAB PO SCH (21:46)
[2020-10-04] MEDS: INSULIN DETEMIR (LEVEMIR) 100 UNIT/ML SYR SQ SCH (21:47)
[2020-10-05 06:56] LABS: Glucose,Whole Blood 138 mg/dL (75-99)
[2020-10-05] MEDS: FUROSEMIDE 10 MG/ML 10 ML VIAL IV SCH (07:40)
[2020-10-05] MEDS: INSULIN ASPART (NovoLOG) 100 UNIT/ML VIAL SQ SCH ×7 (07:40→20:52)
[2020-10-05] MEDS: METOPROLOL TARTRATE 50 MG TAB PO SCH ×2 (07:40→20:58)
[2020-10-05] MEDS: ISOSORBIDE MONONITRATE ER 30 MG TAB.ER.24H PO SCH (07:41)
[2020-10-05] MEDS: RANOLAZINE 500 MG TAB.ER.12H PO SCH (07:41)
[2020-10-05] MEDS: IPRATROPIUM-ALBUTEROL 3 ML NEB INHALATION SCH ×3 (07:52→19:54)
--- NOTE | 2020-10-05 09:25 | P.PN ---
Subjective Patient is seen in follow-up for acute kidney injury on chronic kidney disease, currently hemodialysis dependent. Sitting up in chair. Nonoliguric. Denies chest pain or shortness of breath. No changes overnight. Vital signs are stable. General: The patient appeared well nourished and normally developed. HEENT: Head exam is unremarkable. Neck is without jugular venous distension. LUNGS: Breath sounds decreased. HEART: Rate and Rhythm are regular. ABDOMEN: Soft, no distention. EXTREMITITES: Trace edema. Objective - Vital Signs Vital signs: Vital Signs Temp 97.9 F 10/05/20 08:00 Pulse 84 10/05/20 08:02 Resp 16 10/05/20 08:02 BP 138/69 10/05/20 08:00 Pulse Ox 96 10/05/20 08:00 Intake & Output 10/04/20 10/05/20 10/05/20 18:59 06:59 18:59 Output Total 900 Balance -900 Output: Urine 900 Other: Voiding Method Indwelling Catheter Indwelling Catheter Indwelling Catheter # Bowel Movements 0 - Labs CBC & Chem 7: 09/30/20 06:16 10/02/20 05:27 Labs: Abnormal Lab Results - Last 24 Hours (Table) 10/04/20 10/04/20 10/04/20 Range/Units 11:33 16:30 21:12 POC Glucose (mg/dL) 262 H 135 H 147 H (75-99) mg/dL 10/05/20 Range/Units 06:54 POC Glucose (mg/dL) 138 H (75-99) mg/dL Assessment and Plan Plan: Assessment: 1. Acute kidney injury secondary to ATN secondary to cardiorenal syndrome. Serologies and urine eosinophils negative. Started on hemodialysis on 09/28/2020. Last hemodialysis October 03. 2. Chronic kidney disease stage III B with creatinine 1.5 in May 2020. Etiology is diabetic kidney disease. 3. Volume overload. Improved with ultrafiltration and diuresis. 4. Hyperkalemia secondary to acute kidney injury. Improved postdialysis. 5. Hypertension with chronic kidney disease. Stable. 6. Uremia. Improved postdialysis. 7. Acute on chronic systolic CHF with ejection fraction of 30-35%. 8. Diabetes mellitus. Plan: Maintain IV Lasix. Hold off on dialysis over the weekend and reassess on Tuesday for further need for renal placement therapy. Avoid nephrotoxins. Strict is and os. Outpatient dialysis is being set up. Will plan for kidney biopsy if no improvement in renal function.
[2020-10-05 11:48] LABS: Glucose,Whole Blood 196 mg/dL (75-99)
[2020-10-05 12:02] LABS: African American GFR (CKD) 8.3 (60.0-200.0); Anion Gap 14.6 mmol/L (4.00-12.00); BUN/Creat Ratio 7.46 Ratio (12.00-20.00); Calcium 8.6 mg/dL (8.7-10.3); Carbon Dioxide 23.4 mmol/L (21.6-31.8); Magnesium 1.7 mg/dL (1.5-2.4); Non-African American GFR(CKD) 7.2 (60.0-200.0); Potassium 4.5 mmol/L (3.5-5.5)
--- NOTE | 2020-10-05 14:51 | P.PN ---
Progress Note - Text Progress Note Date: 10/05/20 Chief Complaint: Tired History of presenting complaint: This is a pleasant 80-year-old patient who follows with Dr. Danny Domínguez. Chronic stable medical conditions include coronary artery with stent, COPD, diabetes, DVT, GERD, hyperlipidemia, rheumatoid arthritis, exposure to [place] in [place], peripheral neuropathy, baseline uses a cane. Patient also has peripheral arterial disease being followed by Dr. Hernández. Patient presents with multiple symptoms including feeling floppy-tipped is a decrease appetite tired rundown. Increase Lopressor to edema. Patient was found to have creatinine of 7.5 and in the ER in the BUN of 66. Patient's creatinine in May of this year was 1.54. Patient been having blood draws and his family doctor and per the daughter the bedside patient's creatinine was increased 2 weeks ago. Patient has been becoming a bit more forgetful. No fever no chills. He also notices that food gets stuck in the chest performed: This is started off late. Patient's son and daughter the bedside. Patient initially in the ER did not want dialysis but is now open to the same. Patient is given IV Lasix. Not make any urine. Spoke to the patient and the family. Agreeable 4 hemodialysis. September 28: Sitting up in a chair. Khalil catheter placed. Minimal urine output. Shortness of breath. Tired. Son is present. Discussed with Dr. Tafoya from nephrology. Patient to be started on hemodialysis. September 29: Hemodialysis catheter placed in the right IJ yesterday by Dr. Carey. Did get dialyzed yesterday. Sitting up in a chair. Khalil catheter. Decreased shortness of breath decrease edema. Due for hemodialysis today. Barium swallow did show presbyesophagus. Results discussed with the patient. September 30: Sitting up in a chair. A bit tired. Seen by nephrology. For kidney biopsy in a week. Aspirin held. No hemodialysis today. Decrease edema. October 01: Tired but feeling better. Making urine. For hemodialysis later today. Plan is then to see how patient does with urine output and then decide about long-term dialysis. October 02: Making urine. Tired. Did walk with a walker. Slight drop in creatinine. Decision to hemodialysis again tomorrow. Breathing a bit better. October 03: Good oral intake. Faint urine output. Hemodialyzed today with 1500 output. Plan was to see how patient does with renal function and hopefully discharge soon. October 04: Sitting up in a chair. Oral intake fair. Breathing stable. Was hemodialyzed yesterday. None over the weekend. Fair urine output. Instructed to use incentive spirometry October 05: Good urine output. Comfortable. Breathing stable. Discussed with Dr. Winters from nephrology. We'll order renal biopsy by interventional radiology. Patient has been off aspirin. Review of systems: Was done for constitutional, cardiovascular, GI, pulmonary. relevant finding as above Active Medications Acetaminophen (Acetaminophen Tab 325 Mg Tab) 650 mg PO Q6HR PRN PRN Reason: Fever and/ or Mild Pain Last Admin: 10/04/20 07:49 Dose: 650 mg Documented by: Albuterol Sulfate (Albuterol Nebulized 2.5 Mg/3 Ml) 2.5 mg INHALATION Q6H PRN PRN Reason: Shortness Of Breath Albuterol/Ipratropium (Ipratropium-Albuterol 3 Ml Neb) 3 ml INHALATION RT-TID [facility] Last Admin: 10/05/20 11:24 Dose: Not Given Documented by: Atorvastatin Calcium (Atorvastatin 20 Mg Tab) 20 mg PO [facility] Last Admin: 10/04/20 21:46 Dose: 20 mg Documented by: Furosemide (Furosemide 10 Mg/Ml 10 Ml Vial) 60 mg IV Q12HR [facility] Last Admin: 10/05/20 07:40 Dose: 60 mg Documented by: Insulin Aspart (Insulin Aspart (Novolog) 100 Unit/Ml Vial) 0 unit SQ [facility]; Protocol Last Admin: 10/05/20 12:08 Dose: 2 unit Documented by: Insulin Aspart (Insulin Aspart (Novolog) 100 Unit/Ml Vial) 5 unit SQ AC-TID [facility] Last Admin: 10/05/20 12:08 Dose: 5 unit Documented by: Insulin Detemir (Insulin Detemir (Levemir) 100 Unit/Ml Syr) 20 unit SQ [facility] Last Admin: 10/04/20 21:47 Dose: 20 unit Documented by: Isosorbide Mononitrate (Isosorbide Mononitrate Er 30 Mg Tab.Er.24h) 30 mg PO DAILY [facility] Last Admin: 10/05/20 07:41 Dose: 30 mg Documented by: Isosorbide Mononitrate (Isosorbide Mononitrate Er 60 Mg Tab.Er.24h) 60 mg PO HS [facility] Last Admin: 10/04/20 21:46 Dose: 60 mg Documented by: Metoprolol Tartrate (Metoprolol Tartrate 50 Mg Tab) 50 mg PO BID [facility] Last Admin: 10/05/20 07:40 Dose: 50 mg Documented by: Midodrine (Midodrine 5 Mg Tab) 10 mg PO AC-TID PRN PRN Reason: Blood Pressure - Low Last Admin: 09/28/20 17:04 Dose: 10 mg Documented by: Naloxone HCl (Naloxone 0.4 Mg/Ml 1 Ml Vial) 0.2 mg IV Q2M PRN PRN Reason: Opioid Reversal Nitroglycerin (Nitroglycerin Sl Tabs 0.4 Mg Tab) 0.4 mg SUBLINGUAL Q5M PRN PRN Reason: Chest Pain Ranolazine (Ranolazine 500 Mg Tab.Er.12h) 500 mg PO DAILY [facility] Last Admin: 10/05/20 07:41 Dose: 500 mg Documented by: Past medical history to include: Coronary artery disease, COPD, diabetes, DVT, GERD, hyperlipidemia, [place], rheumatoid arthritis, exposure to [place] in [place], DVTs in the left leg after getting the low bicarbonate 96, colitis, bilateral peripheral neuropathy, coronary artery bypass in 2007, coronary artery with stent, peripheral interventions Social history: Lives alone. Does use a cane. No alcohol. 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 Patient smoked for about 50 years about half a pack a day stopped smoking in 2008 Family history: Cancer Physical examination: VITAL SIGNS: 97.9, 71, 16, 126/63, 96% room air GENERAL:,up in the chair, comfortable EYES: Pupils equal. Conjunctiva pale. HEENT: External appearance of nose and ears normal, oral cavity grossly normal. NECK: JVD not raised; masses not palpable. HEART: First and second heart sounds are normal; decrease edema LUNGS: Respiratory rate normal; decreased breath sounds. ABDOMEN: Soft, nontender, liver spleen not palpable, no masses palpable. Khalil catheter PSYCH: Alert and oriented x3; mood and affect tired. INVESTIGATIONS, reviewed in the clinical context: October 05: BUN 50 creatinine 6.7 October 01: Potassium 4.2 creatinine 5.91 September 30: WBC 8.6 hemoglobin 12.2 platelets 145 potassium 3.9 creatinine 6.43 Barium swallow: Breasts by esophagus September 28: Potassium 5.5 creatinine 8.5 for WBC 7.8 hemoglobin 14 platelets 177 potassium 5.4 bicarb 16 BUN 71 crit 7.6 phosphorus 7.6 Renal ultrasound: Negative Telemetric [personally reviewed by me]: Normal sinus rhythm. Nonspecific T-wave changes. Admission labs: Potassium 5.7 BUN 63 creatinine 7.13 UA positive for leukoesterase, WBC. His, some epithelial cells 6 Chest x-ray film personally reviewed by me-pulmonary edema, cardiomegaly, pacemaker Doppler ultrasound: Negative for DVT Previous labs: BUN 25, creatinine 1.54 in May 2020 Assessment and plan: -Acute kidney injury combination of prerenal and ATN, multifactorial. Underlying CKD. signs of uremia including slight confusion, fluid overload, edema: Slow to respond Started on hemodialysis. Cause undetermined. Intervention radiology consulted for renal biopsy. Creatinine 6.7 today. -Acute uremic symptoms from advancing renal failure.: Some improvement Started hemodialysis on September 28 -Diabetes mellitus type 2, chronically on insulin, uncontrolled with hyperglycemia Decrease Levemir 20 units subcu daily at bedtime. Humalog 5 units with meals. Follow Accu-Cheks -Essential hypertension Continue Lopressor, nitrates- -Peripheral arterial disease with recent interventions Continue with aspirin [currently held] and Lipitor -Diabetic peripheral neuropathy Continue symptoms. DC Neurontin -Acute metabolic and uremic encephalopathy, including contribution from Neurontin. DC Neurontin. Patient should do better after hemodialysis. -Chronic gait dysfunction baseline uses a cane -Hyperphosphatemia from renal failure PhosLo -Coronary artery disease with a previous stent and bypass Continue with nitrates, aspirin [currently held], beta thierry -COPD in a previous smoker DuoNeb 3 times a day -Hyperkalemia secondary to renal failure: Renal diet. Hemodialysis -Metabolic acidosis due to renal failure Sodium bicarbonate -Acute on chronic fluid overload from renal failure Improvement with hemodialysis -GERD Use Pepcid -Presbyesophagus coming dysphagia Discussed with the patient to have soft food and chew his food well. -Disposition: Possibly home Discussed with Dr. Winters. Consult interventional radiology renal biopsy. Creatinine 6.7. Wonder patient needs long-term hemodialysis. We'll discuss with nephrology again. Discussed with the patient.
[2020-10-05 16:50] LABS: Glucose,Whole Blood 142 mg/dL (75-99)
[2020-10-05 20:47] LABS: Glucose,Whole Blood 147 mg/dL (75-99)
[2020-10-05] MEDS: ISOSORBIDE MONONITRATE ER 60 MG TAB.ER.24H PO SCH (20:58)
[2020-10-05] MEDS: ATORVASTATIN 20 MG TAB PO SCH (20:58)
[2020-10-05] MEDS: FUROSEMIDE 10 MG/ML 4 ML VIAL IV SCH (20:58)
[2020-10-05] MEDS: INSULIN DETEMIR (LEVEMIR) 100 UNIT/ML SYR SQ SCH (20:58)
[2020-10-06 06:59] LABS: Glucose,Whole Blood 110 mg/dL (75-99)
[2020-10-06] MEDS: INSULIN ASPART (NovoLOG) 100 UNIT/ML VIAL SQ SCH ×7 (07:26→21:53)
[2020-10-06] MEDS: FUROSEMIDE 10 MG/ML 4 ML VIAL IV SCH ×2 (07:32→20:37)
[2020-10-06] MEDS: METOPROLOL TARTRATE 50 MG TAB PO SCH ×2 (07:33→20:39)
[2020-10-06] MEDS: RANOLAZINE 500 MG TAB.ER.12H PO SCH (07:33)
[2020-10-06] MEDS: ISOSORBIDE MONONITRATE ER 30 MG TAB.ER.24H PO SCH (07:33)
[2020-10-06] MEDS: IPRATROPIUM-ALBUTEROL 3 ML NEB INHALATION SCH ×3 (08:39→20:22)
--- NOTE | 2020-10-06 09:13 | P.PN ---
Subjective Patient is seen in follow-up for acute kidney injury on chronic kidney disease, currently hemodialysis dependent. Sitting up in chair. Nonoliguric. Denies chest pain or shortness of breath. No changes overnight. Creatinine 6.7 yesterday. Vital signs are stable. General: The patient appeared well nourished and normally developed. HEENT: Head exam is unremarkable. Neck is without jugular venous distension. LUNGS: Breath sounds decreased. HEART: Rate and Rhythm are regular. ABDOMEN: Soft, no distention. EXTREMITITES: Trace edema. Objective - Vital Signs Vital signs: Vital Signs Temp 97.8 F 10/06/20 08:00 Pulse 69 10/06/20 08:00 Resp 16 10/06/20 08:00 BP 125/69 10/06/20 08:00 Pulse Ox 97 10/06/20 08:00 Intake & Output 10/05/20 10/06/20 10/06/20 18:59 06:59 18:59 Intake Total 118 Output Total 1000 Balance 118 -1000 Intake: Oral 118 Output: Urine 1000 Other: Voiding Method Indwelling Catheter Indwelling Catheter Indwelling Catheter # Bowel Movements 0 - Labs CBC & Chem 7: 09/30/20 06:16 10/05/20 05:44 Labs: Abnormal Lab Results - Last 24 Hours (Table) 10/05/20 10/05/20 10/05/20 Range/Units 05:44 11:45 16:47 Anion Gap 14.60 H (4.00-12.00) mmol/L BUN 50.0 H (9.0-27.0) mg/dL Creatinine 6.7 H (0.6-1.5) mg/dL Est GFR (CKD-EPI)AfAm 8.3 L (60.0-200.0) Est GFR (CKD-EPI)NonAf 7.2 L (60.0-200.0) BUN/Creatinine Ratio 7.46 L (12.00-20.00) Ratio Glucose 113 H (70-110) mg/dL POC Glucose (mg/dL) 196 H 142 H (75-99) mg/dL Calcium 8.6 L (8.7-10.3) mg/dL 10/05/20 10/06/20 Range/Units 20:41 06:49 Anion Gap (4.00-12.00) mmol/L BUN (9.0-27.0) mg/dL Creatinine (0.6-1.5) mg/dL Est GFR (CKD-EPI)AfAm (60.0-200.0) Est GFR (CKD-EPI)NonAf (60.0-200.0) BUN/Creatinine Ratio (12.00-20.00) Ratio Glucose (70-110) mg/dL POC Glucose (mg/dL) 147 H 110 H (75-99) mg/dL Calcium (8.7-10.3) mg/dL Assessment and Plan Plan: Assessment: 1. Acute kidney injury secondary to ATN secondary to cardiorenal syndrome. Serologies and urine eosinophils negative. Started on hemodialysis on 09/28/2020. Last hemodialysis October 03. Creatinine 6.7 yesterday. 2. Chronic kidney disease stage III B with creatinine 1.5 in May 2020. Etiology is diabetic kidney disease. 3. Volume overload. Improved with ultrafiltration and diuresis. 4. Hyperkalemia secondary to acute kidney injury. Improved postdialysis. 5. Hypertension with chronic kidney disease. Stable. 6. Uremia. Improved postdialysis. 7. Acute on chronic systolic CHF with ejection fraction of 30-35%. 8. Diabetes mellitus. Plan: Maintain IV Lasix - dose was decreased to 40 mg IV twice daily. Plan for hemodialysis today. Avoid nephrotoxins. Strict is and os. Kidney biopsy pending. I will give him DDAVP prior to the biopsy as well. Outpatient dialysis being set up. Continue to monitor for renal recovery.
[2020-10-06 10:34] LABS: African American GFR (CKD) 7.4 (60.0-200.0); BUN/Creat Ratio 7.84 Ratio (12.00-20.00); Calcium 8.6 mg/dL (8.7-10.3); Magnesium 1.7 mg/dL (1.5-2.4); Non-African American GFR(CKD) 6.4 (60.0-200.0); Potassium 4.5 mmol/L (3.5-5.5)
[2020-10-06 10:43] LABS: Mean Platelet Volume 8.1; Platelet Count 202 k/uL (150-450)
[2020-10-06 11:05] LABS: Prothrombin Time 10.5 sec (9.0-12.0)
[2020-10-06 11:27] LABS: Glucose,Whole Blood 119 mg/dL (75-99)
--- NOTE | 2020-10-06 13:03 | P.PN ---
Progress Note - Text Progress Note Date: 10/06/20 Chief Complaint: Tired History of presenting complaint: This is a pleasant 80-year-old patient who follows with Dr. Danny Domínguez. Chronic stable medical conditions include coronary artery with stent, COPD, diabetes, DVT, GERD, hyperlipidemia, rheumatoid arthritis, exposure to [place] in [place], peripheral neuropathy, baseline uses a cane. Patient also has peripheral arterial disease being followed by Dr. Hernández. Patient presents with multiple symptoms including feeling floppy-tipped is a decrease appetite tired rundown. Increase Lopressor to edema. Patient was found to have creatinine of 7.5 and in the ER in the BUN of 66. Patient's creatinine in May of this year was 1.54. Patient been having blood draws and his family doctor and per the daughter the bedside patient's creatinine was increased 2 weeks ago. Patient has been becoming a bit more forgetful. No fever no chills. He also notices that food gets stuck in the chest performed: This is started off late. Patient's son and daughter the bedside. Patient initially in the ER did not want dialysis but is now open to the same. Patient is given IV Lasix. Not make any urine. Spoke to the patient and the family. Agreeable 4 hemodialysis. September 28: Sitting up in a chair. Khalil catheter placed. Minimal urine output. Shortness of breath. Tired. Son is present. Discussed with Dr. Tafoya from nephrology. Patient to be started on hemodialysis. September 29: Hemodialysis catheter placed in the right IJ yesterday by Dr. Carey. Did get dialyzed yesterday. Sitting up in a chair. Khalil catheter. Decreased shortness of breath decrease edema. Due for hemodialysis today. Barium swallow did show presbyesophagus. Results discussed with the patient. September 30: Sitting up in a chair. A bit tired. Seen by nephrology. For kidney biopsy in a week. Aspirin held. No hemodialysis today. Decrease edema. October 01: Tired but feeling better. Making urine. For hemodialysis later today. Plan is then to see how patient does with urine output and then decide about long-term dialysis. October 02: Making urine. Tired. Did walk with a walker. Slight drop in creatinine. Decision to hemodialysis again tomorrow. Breathing a bit better. October 03: Good oral intake. Faint urine output. Hemodialyzed today with 1500 output. Plan was to see how patient does with renal function and hopefully discharge soon. October 04: Sitting up in a chair. Oral intake fair. Breathing stable. Was hemodialyzed yesterday. None over the weekend. Fair urine output. Instructed to use incentive spirometry October 05: Good urine output. Comfortable. Breathing stable. Discussed with Dr. Winters from nephrology. We'll order renal biopsy by interventional radiology. Patient has been off aspirin. October 06: Continue with good urine output. IV Lasix decreased to 40 mg every 12. 1 dose of DDAVP given by nephrology. 4 hemodialysis today. Review of systems: Was done for constitutional, cardiovascular, GI, pulmonary. relevant finding as above Active Medications Acetaminophen (Acetaminophen Tab 325 Mg Tab) 650 mg PO Q6HR PRN PRN Reason: Fever and/ or Mild Pain Last Admin: 10/04/20 07:49 Dose: 650 mg Documented by: Albuterol Sulfate (Albuterol Nebulized 2.5 Mg/3 Ml) 2.5 mg INHALATION Q6H PRN PRN Reason: Shortness Of Breath Albuterol/Ipratropium (Ipratropium-Albuterol 3 Ml Neb) 3 ml INHALATION RT-TID COUNT INCLUDES [facility] Last Admin: 10/06/20 11:22 Dose: Not Given Documented by: Atorvastatin Calcium (Atorvastatin 20 Mg Tab) 20 mg PO [facility] Last Admin: 10/05/20 20:58 Dose: 20 mg Documented by: Furosemide (Furosemide 10 Mg/Ml 4 Ml Vial) 40 mg IV Q12HR EDIN Last Admin: 10/06/20 07:32 Dose: 40 mg Documented by: Desmopressin Acetate 22 mcg/ (Sodium Chloride) 55.5 mls @ 200 mls/hr IVPB ONCE ONE Stop: 10/07/20 09:16 Insulin Aspart (Insulin Aspart (Novolog) 100 Unit/Ml Vial) 0 unit SQ ACHS COUNT INCLUDES THE [facility]; Protocol Last Admin: 10/06/20 11:46 Dose: Not Given Documented by: Insulin Aspart (Insulin Aspart (Novolog) 100 Unit/Ml Vial) 5 unit SQ AC-TID COUNT INCLUDES THE [facility] Last Admin: 10/06/20 11:46 Dose: Not Given Documented by: Insulin Detemir (Insulin Detemir (Levemir) 100 Unit/Ml Syr) 20 unit SQ [facility] Last Admin: 10/05/20 20:58 Dose: 20 unit Documented by: Isosorbide Mononitrate (Isosorbide Mononitrate Er 30 Mg Tab.Er.24h) 30 mg PO DAILY COUNT [facility]CLUDES [facility] Last Admin: 10/06/20 07:33 Dose: 30 mg Documented by: Isosorbide Mononitrate (Isosorbide Mononitrate Er 60 Mg Tab.Er.24h) 60 mg PO HS COUNT INCLUDES [facility] Last Admin: 10/05/20 20:58 Dose: 60 mg Documented by: Metoprolol Tartrate (Metoprolol Tartrate 50 Mg Tab) 50 mg PO BID COUNT INCLUDES THE [facility] Last Admin: 10/06/20 07:33 Dose: 50 mg Documented by: Midodrine (Midodrine 5 Mg Tab) 10 mg PO AC-TID PRN PRN Reason: Blood Pressure - Low Last Admin: 09/28/20 17:04 Dose: 10 mg Documented by: Naloxone HCl (Naloxone 0.4 Mg/Ml 1 Ml Vial) 0.2 mg IV Q2M PRN PRN Reason: Opioid Reversal Nitroglycerin (Nitroglycerin Sl Tabs 0.4 Mg Tab) 0.4 mg SUBLINGUAL Q5M PRN PRN Reason: Chest Pain Ranolazine (Ranolazine 500 Mg Tab.Er.12h) 500 mg PO DAILY COUNT INCLUDES [facility] Last Admin: 10/06/20 07:33 Dose: 500 mg Documented by: Past medical history to include: Coronary artery disease, COPD, diabetes, DVT, GERD, hyperlipidemia, [place], rheumatoid arthritis, exposure to [place] in [place], DVTs in the left leg after getting the low bicarbonate 96, colitis, bilateral peripheral neuropathy, coronary artery bypass in 2007, coronary artery with stent, peripheral interventions Social history: Lives alone. Does use a cane. No alcohol. 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 Patient smoked for about 50 years about half a pack a day stopped smoking in 2008 Family history: Cancer Physical examination: VITAL SIGNS: 97.8, 69, 16, 125/69, 97% room air GENERAL:,up in the chair, comfortable EYES: Pupils equal. Conjunctiva pale. HEENT: External appearance of nose and ears normal, oral cavity grossly normal. NECK: JVD not raised; masses not palpable. HEART: First and second heart sounds are normal; decrease edema LUNGS: Respiratory rate normal; decreased breath sounds. ABDOMEN: Soft, nontender, liver spleen not palpable, no masses palpable. Khalil catheter PSYCH: Alert and oriented x3; mood and affect tired. INVESTIGATIONS, reviewed in the clinical context: October 06: Potassium 4.5 creatinine 7.4 October 05: BUN 50 creatinine 6.7 October 01: Potassium 4.2 creatinine 5.91 September 30: WBC 8.6 hemoglobin 12.2 platelets 145 potassium 3.9 creatinine 6.43 Barium swallow: Breasts by esophagus September 28: Potassium 5.5 creatinine 8.5 for WBC 7.8 hemoglobin 14 platelets 177 potassium 5.4 bicarb 16 BUN 71 crit 7.6 phosphorus 7.6 Renal ultrasound: Negative Telemetric [personally reviewed by me]: Normal sinus rhythm. Nonspecific T-wave changes. Admission labs: Potassium 5.7 BUN 63 creatinine 7.13 UA positive for leukoesterase, WBC. His, some epithelial cells 6 Chest x-ray film personally reviewed by me-pulmonary edema, cardiomegaly, pacemaker Doppler ultrasound: Negative for DVT Previous labs: BUN 25, creatinine 1.54 in May 2020 Assessment and plan: -Acute kidney injury combination of prerenal and ATN, multifactorial. Underlying CKD. signs of uremia including slight confusion, fluid overload, edema: Slow to respond Started on hemodialysis. Cause undetermined. Intervention radiology consulted for renal biopsy. Creatinine 7.4 today. -Acute uremic symptoms from advancing renal failure.: improvement Started hemodialysis on September 28 -Diabetes mellitus type 2, chronically on insulin, uncontrolled with hyperglycemia Decrease Levemir 20 units subcu daily at bedtime. Humalog 5 units with meals. Follow Accu-Cheks -Essential hypertension Continue Lopressor, nitrates- -Peripheral arterial disease with recent interventions Continue with aspirin [currently held] and Lipitor -Diabetic peripheral neuropathy Continue symptoms. DC Neurontin -Acute metabolic and uremic encephalopathy, including contribution from Neurontin. DC Neurontin. Patient should do better after hemodialysis. -Chronic gait dysfunction baseline uses a cane -Hyperphosphatemia from renal failure PhosLo -Coronary artery disease with a previous stent and bypass Continue with nitrates, aspirin [currently held], beta thierry -COPD in a previous smoker DuoNeb 3 times a day -Hyperkalemia secondary to renal failure: Renal diet. Hemodialysis -Metabolic acidosis due to renal failure Sodium bicarbonate -Acute on chronic fluid overload from renal failure Improvement with hemodialysis -GERD Use Pepcid -Presbyesophagus coming dysphagia Discussed with the patient to have soft food and chew his food well. -Disposition: Possibly home Hemodialysis today. Because of scheduling possible renal biopsy tomorrow. Other medications to continue. Discussed with the patient. Outpatient dialysis is being set up.
[2020-10-06 16:50] LABS: Glucose,Whole Blood 181 mg/dL (75-99)
[2020-10-06] MEDS: ISOSORBIDE MONONITRATE ER 60 MG TAB.ER.24H PO SCH (20:39)
[2020-10-06] MEDS: ATORVASTATIN 20 MG TAB PO SCH (20:39)
[2020-10-06 20:49] LABS: Glucose,Whole Blood 202 mg/dL (75-99)
[2020-10-06] MEDS: INSULIN DETEMIR (LEVEMIR) 100 UNIT/ML SYR SQ SCH (21:53)
[2020-10-07 06:56] LABS: Glucose,Whole Blood 94 mg/dL (75-99)
[2020-10-07] MEDS: INSULIN ASPART (NovoLOG) 100 UNIT/ML VIAL SQ SCH ×7 (07:29→22:28)
[2020-10-07] MEDS ORDERED: DESMOPRESSIN ACETATE 22 MCG in SODIUM CHLORIDE 0.9% 50 ML IVPB ONE (08:00)
[2020-10-07] MEDS: IPRATROPIUM-ALBUTEROL 3 ML NEB INHALATION SCH ×3 (08:10→20:31)
[2020-10-07] MEDS: RANOLAZINE 500 MG TAB.ER.12H PO SCH (08:12)
[2020-10-07] MEDS: FUROSEMIDE 10 MG/ML 4 ML VIAL IV SCH (08:12)
[2020-10-07] MEDS: METOPROLOL TARTRATE 50 MG TAB PO SCH ×2 (08:12→22:27)
[2020-10-07] MEDS: ISOSORBIDE MONONITRATE ER 30 MG TAB.ER.24H PO SCH (08:12)
[2020-10-07] MEDS ORDERED: HYDROmorphone 0.5 MG/0.5 ML SYRINGE IVP STA (09:13)
--- NOTE | 2020-10-07 09:37 | P.PN ---
Subjective Patient is seen in follow-up for acute kidney injury on chronic kidney disease, currently hemodialysis dependent. Sitting up in chair. Nonoliguric. Denies chest pain or shortness of breath. No changes overnight. Creatinine 7.4 yesterday and underwent hemodialysis yesterday. Scheduled for kidney biopsy today. Vital signs are stable. General: The patient appeared well nourished and normally developed. HEENT: Head exam is unremarkable. Neck is without jugular venous distension. LUNGS: Breath sounds decreased. HEART: Rate and Rhythm are regular. ABDOMEN: Soft, no distention. EXTREMITITES: Trace edema. Objective - Vital Signs Vital signs: Vital Signs Temp 97.6 F 10/07/20 07:56 Pulse 84 10/07/20 09:21 Resp 18 10/07/20 09:21 BP 138/76 10/07/20 09:21 Pulse Ox 95 10/07/20 09:21 Intake & Output 10/06/20 10/07/20 10/07/20 18:59 06:59 18:59 Intake Total 1158 Output Total 900 1000 Balance 258 -1000 Intake: Oral 658 Hemodialysis 500 Output: Urine 1000 Hemodialysis 900 Other: Voiding Method Indwelling Catheter Indwelling Catheter Indwelling Catheter # Bowel Movements 0 - Labs CBC & Chem 7: 10/06/20 10:10 10/06/20 05:02 Labs: Abnormal Lab Results - Last 24 Hours (Table) 10/06/20 10/06/20 10/06/20 Range/Units 05:02 11:25 16:46 Anion Gap 15.00 H (4.00-12.00) mmol/L BUN 58.0 H (9.0-27.0) mg/dL Creatinine 7.4 H* (0.6-1.5) mg/dL Est GFR (CKD-EPI)AfAm 7.4 L (60.0-200.0) Est GFR (CKD-EPI)NonAf 6.4 L (60.0-200.0) BUN/Creatinine Ratio 7.84 L (12.00-20.00) Ratio POC Glucose (mg/dL) 119 H 181 H (75-99) mg/dL Calcium 8.6 L (8.7-10.3) mg/dL 10/06/20 Range/Units 20:47 Anion Gap (4.00-12.00) mmol/L BUN (9.0-27.0) mg/dL Creatinine (0.6-1.5) mg/dL Est GFR (CKD-EPI)AfAm (60.0-200.0) Est GFR (CKD-EPI)NonAf (60.0-200.0) BUN/Creatinine Ratio (12.00-20.00) Ratio POC Glucose (mg/dL) 202 H (75-99) mg/dL Calcium (8.7-10.3) mg/dL Assessment and Plan Plan: Assessment: 1. Acute kidney injury secondary to ATN secondary to cardiorenal syndrome. S erologies and urine eosinophils negative. Started on hemodialysis on 09/28/2020. Last hemodialysis October 03. Creatinine 7.4 yesterday. 2. Chronic kidney disease stage III B with creatinine 1.5 in May 2020. Etiology is diabetic kidney disease. 3. Volume overload. Improved with ultrafiltration and diuresis. 4. Hyperkalemia secondary to acute kidney injury. Improved postdialysis. 5. Hypertension with chronic kidney disease. Stable. 6. Uremia. Improved postdialysis. 7. Acute on chronic systolic CHF with ejection fraction of 30-35%. 8. Diabetes mellitus. Plan: I will change IV Lasix to torsemide 40 mg once daily. Hemodialysis tomorrow. Avoid nephrotoxins. Kidney biopsy today. Patient received DDAVP this morning. Outpatient dialysis being set up. Continue to monitor for renal recovery outpatient.
--- NOTE | 2020-10-07 09:46 | CT ---
EXAMINATION TYPE: CT biopsy renal RT DATE OF EXAM: 10/07/2020 COMPARISON: NONE HISTORY: Renal failure CT DLP: 3240 mGycm The procedure was explained to the patient. The risks, complications, benefits, and alternatives wer e discussed and any questions were answered. Informed consent was obtained. Patient was placed pron e on the CT table and prepped and draped in the usual sterile fashion. Utilizing CT guidance, an 18 gauge core biopsy needle access into the right renal cortex was achieved and three 18 gauge core samples were obtained. The patient was stable throughout the procedure and remained stable upon discharge. IMPRESSION: Successful 18 gauge core biopsy of the kidney for assessment of function.
[2020-10-07 11:54] LABS: Glucose,Whole Blood 113 mg/dL (75-99)
[2020-10-07 12:17] LABS: African American GFR (CKD) 9.3 (60.0-200.0); Anion Gap 11.9 mmol/L (4.00-12.00); BUN/Creat Ratio 7.54 Ratio (12.00-20.00); Calcium 8.7 mg/dL (8.7-10.3); Carbon Dioxide 30.1 mmol/L (21.6-31.8); Magnesium 2.8 mg/dL (1.5-2.4); Non-African American GFR(CKD) 8.1 (60.0-200.0); Potassium 4.2 mmol/L (3.5-5.5)
--- NOTE | 2020-10-07 15:59 | P.PN ---
Progress Note - Text Progress Note Date: 10/07/20 Chief Complaint: Tired History of presenting complaint: This is a pleasant 80-year-old patient who follows with Dr. Danny Domínguez. Chronic stable medical conditions include coronary artery with stent, COPD, diabetes, DVT, GERD, hyperlipidemia, rheumatoid arthritis, exposure to [place] in [place], peripheral neuropathy, baseline uses a cane. Patient also has peripheral arterial disease being followed by Dr. Hernández. Patient presents with multiple symptoms including feeling floppy-tipped is a decrease appetite tired rundown. Increase Lopressor to edema. Patient was found to have creatinine of 7.5 and in the ER in the BUN of 66. Patient's creatinine in May of this year was 1.54. Patient been having blood draws and his family doctor and per the daughter the bedside patient's creatinine was increased 2 weeks ago. Patient has been becoming a bit more forgetful. No fever no chills. He also notices that food gets stuck in the chest performed: This is started off late. Patient's son and daughter the bedside. Patient initially in the ER did not want dialysis but is now open to the same. Patient is given IV Lasix. Not make any urine. Spoke to the patient and the family. Agreeable 4 hemodialysis. September 28: Sitting up in a chair. Khalil catheter placed. Minimal urine output. Shortness of breath. Tired. Son is present. Discussed with Dr. Tafoya from nephrology. Patient to be started on hemodialysis. September 29: Hemodialysis catheter placed in the right IJ yesterday by Dr. Carey. Did get dialyzed yesterday. Sitting up in a chair. Khalil catheter. Decreased shortness of breath decrease edema. Due for hemodialysis today. Barium swallow did show presbyesophagus. Results discussed with the patient. September 30: Sitting up in a chair. A bit tired. Seen by nephrology. For kidney biopsy in a week. Aspirin held. No hemodialysis today. Decrease edema. October 01: Tired but feeling better. Making urine. For hemodialysis later today. Plan is then to see how patient does with urine output and then decide about long-term dialysis. October 02: Making urine. Tired. Did walk with a walker. Slight drop in creatinine. Decision to hemodialysis again tomorrow. Breathing a bit better. October 03: Good oral intake. Faint urine output. Hemodialyzed today with 1500 output. Plan was to see how patient does with renal function and hopefully discharge soon. October 04: Sitting up in a chair. Oral intake fair. Breathing stable. Was hemodialyzed yesterday. None over the weekend. Fair urine output. Instructed to use incentive spirometry October 05: Good urine output. Comfortable. Breathing stable. Discussed with Dr. Winters from nephrology. We'll order renal biopsy by interventional radiology. Patient has been off aspirin. October 06: Continue with good urine output. IV Lasix decreased to 40 mg every 12. 1 dose of DDAVP given by nephrology. 4 hemodialysis today. October 07: Patient underwent kidney biopsy is morning. No new issues. IV Lasix changed to by mouth torsemide 40 mg. For hemodialysis tomorrow. Review of systems: Was done for constitutional, cardiovascular, GI, pulmonary. relevant finding as above Active Medications Acetaminophen (Acetaminophen Tab 325 Mg Tab) 650 mg PO Q6HR PRN PRN Reason: Fever and/ or Mild Pain Last Admin: 10/04/20 07:49 Dose: 650 mg Documented by: Albuterol Sulfate (Albuterol Nebulized 2.5 Mg/3 Ml) 2.5 mg INHALATION Q6H PRN PRN Reason: Shortness Of Breath Albuterol/Ipratropium (Ipratropium-Albuterol 3 Ml Neb) 3 ml INHALATION RT-TID [facility] Last Admin: 10/06/20 11:22 Dose: Not Given Documented by: Atorvastatin Calcium (Atorvastatin 20 Mg Tab) 20 mg PO HS [facility] Last Admin: 10/05/20 20:58 Dose: 20 mg Documented by: Furosemide (Furosemide 10 Mg/Ml 4 Ml Vial) 40 mg IV Q12HR [facility] Last Admin: 10/06/20 07:32 Dose: 40 mg Documented by: Desmopressin Acetate 22 mcg/ (Sodium Chloride) 55.5 mls @ 200 mls/hr IVPB ONCE ONE Stop: 10/07/20 09:16 Insulin Aspart (Insulin Aspart (Novolog) 100 Unit/Ml Vial) 0 unit SQ ACHS [facility]; Protocol Last Admin: 10/06/20 11:46 Dose: Not Given Documented by: Insulin Aspart (Insulin Aspart (Novolog) 100 Unit/Ml Vial) 5 unit SQ AC-TID [facility] Last Admin: 10/06/20 11:46 Dose: Not Given Documented by: Insulin Detemir (Insulin Detemir (Levemir) 100 Unit/Ml Syr) 20 unit SQ [facility] Last Admin: 10/05/20 20:58 Dose: 20 unit Documented by: Isosorbide Mononitrate (Isosorbide Mononitrate Er 30 Mg Tab.Er.24h) 30 mg PO DAILY [facility] Last Admin: 10/06/20 07:33 Dose: 30 mg Documented by: Isosorbide Mononitrate (Isosorbide Mononitrate Er 60 Mg Tab.Er.24h) 60 mg PO [facility] Last Admin: 10/05/20 20:58 Dose: 60 mg Documented by: Metoprolol Tartrate (Metoprolol Tartrate 50 Mg Tab) 50 mg PO BID [facility] Last Admin: 10/06/20 07:33 Dose: 50 mg Documented by: Midodrine (Midodrine 5 Mg Tab) 10 mg PO AC-TID PRN PRN Reason: Blood Pressure - Low Last Admin: 09/28/20 17:04 Dose: 10 mg Documented by: Naloxone HCl (Naloxone 0.4 Mg/Ml 1 Ml Vial) 0.2 mg IV Q2M PRN PRN Reason: Opioid Reversal Nitroglycerin (Nitroglycerin Sl Tabs 0.4 Mg Tab) 0.4 mg SUBLINGUAL Q5M PRN PRN Reason: Chest Pain Ranolazine (Ranolazine 500 Mg Tab.Er.12h) 500 mg PO DAILY [facility] Last Admin: 10/06/20 07:33 Dose: 500 mg Documented by: Past medical history to include: Coronary artery disease, COPD, diabetes, DVT, GERD, hyperlipidemia, [place], rheumatoid arthritis, exposure to [place] in [place], DVTs in the left leg after getting the low bicarbonate 96, colitis, bilateral peripheral neuropathy, coronary artery bypass in 2007, coronary artery with stent, peripheral interventions Social history: Lives alone. Does use a cane. No alcohol. 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 Patient smoked for about 50 years about half a pack a day stopped smoking in 2008 Family history: Cancer Physical examination: VITAL SIGNS: 97.8, 69, 16, 125/69, 97% room air GENERAL:,up in the chair, comfortable EYES: Pupils equal. Conjunctiva pale. HEENT: External appearance of nose and ears normal, oral cavity grossly normal. NECK: JVD not raised; masses not palpable. HEART: First and second heart sounds are normal; decrease edema LUNGS: Respiratory rate normal; decreased breath sounds. ABDOMEN: Soft, nontender, liver spleen not palpable, no masses palpable. Khalil catheter PSYCH: Alert and oriented x3; mood and affect tired. INVESTIGATIONS, reviewed in the clinical context: October 06: Potassium 4.5 creatinine 7.4 October 05: BUN 50 creatinine 6.7 October 01: Potassium 4.2 creatinine 5.91 September 30: WBC 8.6 hemoglobin 12.2 platelets 145 potassium 3.9 creatinine 6.43 Barium swallow: Breasts by esophagus September 28: Potassium 5.5 creatinine 8.5 for WBC 7.8 hemoglobin 14 platelets 177 potassium 5.4 bicarb 16 BUN 71 crit 7.6 phosphorus 7.6 Renal ultrasound: Negative Telemetric [personally reviewed by me]: Normal sinus rhythm. Nonspecific T-wave changes. Admission labs: Potassium 5.7 BUN 63 creatinine 7.13 UA positive for leukoesterase, WBC. His, some epithelial cells 6 Chest x-ray film personally reviewed by me-pulmonary edema, cardiomegaly, pacemaker Doppler ultrasound: Negative for DVT Previous labs: BUN 25, creatinine 1.54 in May 2020 Assessment and plan: -Acute kidney injury combination of prerenal and ATN, multifactorial. Underlying CKD. signs of uremia including slight confusion, fluid overload, edema: Slow to respond Started on hemodialysis. Cause undetermined. Intervention radiology consulted for renal biopsy. Creatinine 7.4 today. -Acute uremic symptoms from advancing renal failure.: improvement Started hemodialysis on September 28 -Diabetes mellitus type 2, chronically on insulin, uncontrolled with hyperglycemia Decrease Levemir 20 units subcu daily at bedtime. Humalog 5 units with meals. Follow Accu-Cheks -Essential hypertension Continue Lopressor, nitrates- -Peripheral arterial disease with recent interventions Continue with aspirin [currently held] and Lipitor -Diabetic peripheral neuropathy Continue symptoms. DC Neurontin -Acute metabolic and uremic encephalopathy, including contribution from Neurontin. DC Neurontin. Patient should do better after hemodialysis. -Chronic gait dysfunction baseline uses a cane -Hyperphosphatemia from renal failure PhosLo -Coronary artery disease with a previous stent and bypass Continue with nitrates, aspirin [currently held], beta thierry -COPD in a previous smoker DuoNeb 3 times a day -Hyperkalemia secondary to renal failure: Renal diet. Hemodialysis -Metabolic acidosis due to renal failure Sodium bicarbonate -Acute on chronic fluid overload from renal failure Improvement with hemodialysis -GERD Use Pepcid -Presbyesophagus coming dysphagia Discussed with the patient to have soft food and chew his food well. -Disposition: Possibly home Renal biopsy done today. Hemodialysis tomorrow. Can be discharged home after the same. Discussed with the patient.
[2020-10-07 16:37] LABS: Glucose,Whole Blood 136 mg/dL (75-99)
[2020-10-07 21:00] LABS: Glucose,Whole Blood 184 mg/dL (75-99)
[2020-10-07] MEDS: INSULIN DETEMIR (LEVEMIR) 100 UNIT/ML SYR SQ SCH (22:27)
[2020-10-07] MEDS: ATORVASTATIN 20 MG TAB PO SCH (22:27)
[2020-10-07] MEDS: ISOSORBIDE MONONITRATE ER 60 MG TAB.ER.24H PO SCH (22:27)
[2020-10-08 06:47] LABS: Glucose,Whole Blood 126 mg/dL (75-99)
[2020-10-08] MEDS: INSULIN ASPART (NovoLOG) 100 UNIT/ML VIAL SQ SCH ×4 (07:24→13:31)
[2020-10-08] MEDS: IPRATROPIUM-ALBUTEROL 3 ML NEB INHALATION SCH ×2 (08:07→11:31)
[2020-10-08] MEDS ORDERED: TORSEMIDE 20 MG TAB PO SCH (09:00)
--- NOTE | 2020-10-08 09:10 | ECHOF ---
Referral Reason:CHF MEASUREMENTS -------- HEIGHT: 175.3 cm WEIGHT: 97.1 kg BP: RVIDd: 2.9 cm (< 3.3) IVSd: 0.9 cm (0.6 - 1.1) LVIDd: 5.5 cm (3.9 - 5.3) LVPWd: 1.1 cm (0.6 - 1.1) IVSs: 1.2 cm LVIDs: 5.1 cm LVPWs: 1.6 cm LA Diam: 4.6 cm (2.7 - 3.8) Ao Diam: 3.2 cm (2.0 - 3.7) AV Cusp: 1.1 cm (1.5 - 2.6) LA Diam: 4.4 cm (2.7 - 3.8) MV EXCURSION: 15.965 mm (> 18.000) MV EF SLOPE: 32 mm/s (70 - 150) EPSS: 1.5 cm MV E Buzz: 0.85 m/s MV DecT: 178 ms MV A Buzz: 0.44 m/s MV E/A Ratio: 1.95 RAP: 5.00 mmHg RVSP: 15.17 mmHg FINDINGS -------- Pacerwire seen in RV and RA. This was a techncally difficult study with suboptimal views, , Definity utilized for enhancement of i mages. The left ventricular size is normal. Left ventricular wall thickness is normal. There is moderate global hypokinesis of LV . Overall left ventricular systolic function is moderate-severely impaire d with, an EF between 30 - 35 %. Basal inferior LV wall motion is akinetic. Basal inferoseptal L V wall motion is normal. The right ventricle is normal in size. The left atrium is moderately dilated. The right atrial size is normal. Lumason used There is mild aortic valve sclerosis. There is no evidence of aortic regurgitation. Mild mitral annular calcification present. Mild mitral regurgitation is present. No regurgitation noted Right ventricular systolic pressure is normal at < 35 mmHg. Trace/mild (physiologic) pulmonic regurgitation. There is no pericardial effusion. CONCLUSIONS -------- 1. This was a techncally difficult study with suboptimal views, , Definity utilized for enhancement o f images. 2. The left ventricular size is normal. 3. Left ventricular wall thickness is normal. 4. There is moderate global hypokinesis of LV . 5. Overall left ventricular systolic function is moderate-severely impaired with, an EF between 30 - 35 %. 6. Basal inferoseptal LV wall motion is normal. 7. The right ventricle is normal in size. 8. The left atrium is moderately dilated. 9. The right atrial size is normal. 10. Lumason used 11. There is mild aortic valve sclerosis. 12. Mild mitral annular calcification present. 13. Mild mitral regurgitation is present. 14. No regurgitation noted 15. Trace/mild (physiologic) pulmonic regurgitation. 16. There is no pericardial effusion. PROPERTY CLERK: Corazon Preston RDCS
[2020-10-08 11:15] LABS: Glucose,Whole Blood 154 mg/dL (75-99)
[2020-10-08 11:47] LABS: African American GFR (CKD) 8.2 (60.0-200.0); Anion Gap 17.5 mmol/L (4.00-12.00); BUN/Creat Ratio 8.82 Ratio (12.00-20.00); Calcium 9.2 mg/dL (8.7-10.3); Carbon Dioxide 24.5 mmol/L (21.6-31.8); Magnesium 1.8 mg/dL (1.5-2.4); Non-African American GFR(CKD) 7.1 (60.0-200.0); Potassium 4.3 mmol/L (3.5-5.5)
[2020-10-08 12:15] VITALS: RESP 20; TEMP 97
[2020-10-08 12:58] VITALS: BP 128/72; PULSE 75
[2020-10-08] MEDS: RANOLAZINE 500 MG TAB.ER.12H PO SCH (12:59)
[2020-10-08] MEDS: ISOSORBIDE MONONITRATE ER 30 MG TAB.ER.24H PO SCH (12:59)
[2020-10-08] MEDS: ACETAMINOPHEN TAB 325 MG TAB PO PRN (13:04)
[2020-10-08] MEDS: METOPROLOL TARTRATE 50 MG TAB PO SCH (13:31)
--- NOTE | 2020-10-08 17:44 | PN ---
PROGRESS NOTE Patient is seen for followup for acute kidney injury, status post kidney biopsy, currently maintained on dialysis. Patient will be discharged today and will followup as outpatient for dialysis at the [facility]. EXAMINATION: Today blood pressure 128/72, heart rate 75 per minute. He is afebrile. Examination shows patient is awake, alert, oriented x3. 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 No significant edema noted. LAB: Show a serum creatinine of 6.8 from today. Sodium 138, potassium 4.3. ASSESSMENT: 1. Acute kidney injury, status post kidney biopsy, most likely ATN/cardiorenal syndrome. We will followup on results of the kidney biopsy. The patient can be discharged. He will continue outpatient dialysis at the [facility] on a Tuesday, Tuesday, Tuesday schedule. 2. Volume overload, currently improved. 3. Cardiomyopathy. 4. Anemia, now improved. 5. Chronic kidney disease stage 3B, with creatinine 1.5 secondary to diabetic kidney disease. 6. Anemia, now resolved. 7. Cardiomyopathy, EF 30-35%. PLAN: Followup as outpatient. We will followup on biopsy results. We will see him at the dialysis unit. MMODL / IJN: [id number] /
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
== END 2020-10-08 16:38 | disposition home or self-care (01) | DRG 673 ==
LOC: EC 17:17 → 4SSUR 19:59
PROVIDERS: ADMIT Hospitalist; ATTEND Hospitalist
PROC: 06H033Z Insertion of Infusion Device into Inferior Vena Cava, Percutaneous Approach (ICD-10-PCS; principal; 2020-09-28 13:30)
PROC: 0JH63XZ Insertion of Tunneled Vascular Access Device into Chest Subcutaneous Tissue and Fascia, Percutaneous Approach (ICD-10-PCS; principal; 2020-09-28 13:30)
PROC: 5A1D70Z Performance of Urinary Filtration, Intermittent, Less than 6 Hours Per Day (ICD-10-PCS; 2020-09-28 13:30)
PROC: 0TB03ZX Excision of Right Kidney, Percutaneous Approach, Diagnostic (ICD-10-PCS; 2020-10-07)
DX: N17.0 Acute kidney failure with tubular necrosis (principal); G93.41 Metabolic encephalopathy; I50.23 Acute on chronic systolic (congestive) heart failure; I13.0 Hypertensive heart and chronic kidney disease with heart failure and stage 1 through stage 4 chronic kidney disease, or unspecified chronic kidney disease; E87.2 Acidosis; E11.649 Type 2 diabetes mellitus with hypoglycemia without coma; D63.1 Anemia in chronic kidney disease; I95.9 Hypotension, unspecified; E83.39 Other disorders of phosphorus metabolism; E11.22 Type 2 diabetes mellitus with diabetic chronic kidney disease; E11.51 Type 2 diabetes mellitus with diabetic peripheral angiopathy without gangrene; E11.42 Type 2 diabetes mellitus with diabetic polyneuropathy; E11.65 Type 2 diabetes mellitus with hyperglycemia; N18.32 Chronic kidney disease, stage 3b; M06.9 Rheumatoid arthritis, unspecified; J44.9 Chronic obstructive pulmonary disease, unspecified; Z79.4 Long term (current) use of insulin; Z99.2 Dependence on renal dialysis; Z20.822 Contact with and (suspected) exposure to COVID-19; E87.5 Hyperkalemia; E78.5 Hyperlipidemia, unspecified; R13.10 Dysphagia, unspecified; K22.8 Other specified diseases of esophagus; K21.9 Gastro-esophageal reflux disease without esophagitis; I25.10 Atherosclerotic heart disease of native coronary artery without angina pectoris; I25.5 Ischemic cardiomyopathy; I08.1 Rheumatic disorders of both mitral and tricuspid valves; F43.10 Post-traumatic stress disorder, unspecified; I25.2 Old myocardial infarction; R26.9 Unspecified abnormalities of gait and mobility; E66.9 Obesity, unspecified; Z68.31 Body mass index [BMI] 31.0-31.9, adult; Z79.82 Long term (current) use of aspirin; Z79.02 Long term (current) use of antithrombotics/antiplatelets; Z79.899 Other long term (current) drug therapy; Z77.098 Contact with and (suspected) exposure to other hazardous, chiefly nonmedicinal, chemicals; Z65.5 Exposure to disaster, war and other hostilities; Z60.2 Problems related to living alone; Z87.01 Personal history of pneumonia (recurrent); Z86.718 Personal history of other venous thrombosis and embolism; Z86.69 Personal history of other diseases of the nervous system and sense organs; Z95.1 Presence of aortocoronary bypass graft; Z95.5 Presence of coronary angioplasty implant and graft; Z90.89 Acquired absence of other organs; Z86.79 Personal history of other diseases of the circulatory system; Z98.42 Cataract extraction status, left eye; Z98.41 Cataract extraction status, right eye; Z87.891 Personal history of nicotine dependence; Z95.820 Peripheral vascular angioplasty status with implants and grafts; Z95.810 Presence of automatic (implantable) cardiac defibrillator; Z96.1 Presence of intraocular lens; Z98.890 Other specified postprocedural states; Z71.3 Dietary counseling and surveillance; Z80.9 Family history of malignant neoplasm, unspecified
CPT/HCPCS: 36415; 36558; 71045; 71046; 74220; 76770; 76937; 77001; 77012; 80048; 80053; 81001; 83735; 83880; 84100; 85025; 85049; 85610; 85730; 86038; 86160; 86225; 86255; 86334; 86335; 86704; 86706; 86803; 86850; 86900; 86901; 87086; 87205; 87340; 90935; 93005; 93306; 94640; 99285

== ENCOUNTER 2023-04-18 14:08 | Emergency (ER) | payer MEDICARE, BC ==
[2023-04-18 14:39] VITALS: TEMP 97.5
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
--- NOTE | 2023-04-18 15:46 | XR ---
EXAMINATION TYPE: XR foot complete RT DATE OF EXAM: 04/18/2023 3:22 PM CLINICAL INDICATION:Male, 82 years old with history of Pain, possible infection; [facility] COMPARISON: None TECHNIQUE: XR foot complete RT examined in the AP, oblique, and lateral projections. FINDINGS: No evidence of any acute osseous pathology. There is dorsal forefoot soft tissue swelling. Joints ar e preserved. Dense for osseous erosion. Atherosclerosis of the arterial vasculature. Calcaneal planta r spurring is present. IMPRESSION: 1. No evidence of acute fracture. 2. Soft tissue swelling over the dorsal foot without evidence for osseous erosion.
[2023-04-18] MEDS: MORPHINE SULFATE 4 MG/ML SYRINGE IVP STA (16:04)
[2023-04-18] MEDS: LIDOCAINE 4% PATCH TOPICAL ONE (16:04)
[2023-04-18 16:09] LABS: Basophils # (A) 0.1 k/uL (0-0.2); Basophils % (A) 1 %; Eosinophils # (A) 0.5 k/uL (0-0.7); Eosinophils % (A) 6 %; HCT 46.8 % (39.0-53.0); HGB 15.2 gm/dL (13.0-17.5); Lymphocytes # (A) 1.1 k/uL (1.0-4.8); Lymphocytes % (A) 13 %; MCH 30.5 pg (25.0-35.0); MCHC 32.5 g/dL (31.0-37.0); MCV 93.9 fL (80.0-100.0); Mean Platelet Volume 8.3; Monocytes # (A) 0.3 k/uL (0-1.0); Monocytes % (A) 3 %; Neutrophils # (A) 6.4 k/uL (1.3-7.7); Neutrophils % (A) 76 %; Platelet Count 204 k/uL (150-450); RBC 4.99 m/uL (4.30-5.90); RDW 15.8 % (11.5-15.5); WBC 8.4 k/uL (3.8-10.6)
[2023-04-18 16:31] LABS: ALT 12 U/L (4-49); AST 21 U/L (17-59); African American GFR (CKD) 30 (>60 ml/min/1.73 sqM); Albumin 4.2 g/dL (3.5-5.0); Alkaline Phosphatase 102 U/L (38-126); Anion Gap 11 mmol/L; Blood Urea Nitrogen 52 mg/dL (9-20); C Reactive Protein <0.5 mg/dL (<1.0); Calcium 9.9 mg/dL (8.4-10.2); Carbon Dioxide 22 mmol/L (22-30); Chloride 105 mmol/L (98-107); Glucose 170 mg/dL (74-99); Non-African American GFR(CKD) 26 (>60 ml/min/1.73 sqM); Potassium 5.4 mmol/L (3.5-5.1); Sodium 138 mmol/L (137-145); Total Bilirubin 0.9 mg/dL (0.2-1.3); Total Protein 7.4 g/dL (6.3-8.2)
[2023-04-18] MEDS: CALCIUM GLUCONATE IN NACL 1 GM in SALINE 1 100ML.BAG IVPB ONE (16:59)
[2023-04-18] MEDS: SODIUM ZIRCONIUM CYCLOSILICATE 10 GM PACKET PO ONE (16:59)
[2023-04-18] MEDS: CEPHALEXIN 250 MG CAP PO ONE (17:13)
[2023-04-18 18:33] VITALS: BP 134/65; PULSE 57; RESP 18
== END 2023-04-18 18:05 | disposition home or self-care (01) ==
LOC: EC 14:08
DX: L03.031 Cellulitis of right toe (principal); E87.5 Hyperkalemia; I99.9 Unspecified disorder of circulatory system; E11.40 Type 2 diabetes mellitus with diabetic neuropathy, unspecified; I25.10 Atherosclerotic heart disease of native coronary artery without angina pectoris; I25.2 Old myocardial infarction; J44.9 Chronic obstructive pulmonary disease, unspecified; E78.5 Hyperlipidemia, unspecified; Z79.82 Long term (current) use of aspirin; Z79.899 Other long term (current) drug therapy; Z79.02 Long term (current) use of antithrombotics/antiplatelets; Z86.718 Personal history of other venous thrombosis and embolism; Z87.891 Personal history of nicotine dependence; Z95.1 Presence of aortocoronary bypass graft; Z95.5 Presence of coronary angioplasty implant and graft; Z98.49 Cataract extraction status, unspecified eye
CPT/HCPCS: 36415; 80053; 83605; 85025; 86140; 73630; 99284; 96365; 96375; J2270; J0613